=== PATIENT | female | born 1945 | race Caucasian/White ===

== ENCOUNTER 2018-09-04 03:48 | Inpatient (IN) ==
[2018-09-04] MEDS ORDERED: Piperacil/Tazo 3.375 GM Premix 50 ML IV.SIG ONE (03:53)
[2018-09-04] MEDS ORDERED: Vancomycin Inj 1 GM/200 ML PIGGYBACK IV.SIG ONE (03:53)
[2018-09-04] MEDS ORDERED: Sod Chloride 0.9% Inj 1,000 ML IV.SIG ONE ×2 (03:53→05:05)
--- NOTE | 2018-09-04 03:58 | ED ---
HPI General Stated Complaint: Medical Time Seen by Provider: 09/04/18 03:50 History of Present Illness HPI Narrative: 73-year-old female from half-way she has dementia she has a PEG tube she apparently was found to be febrile and minimally responsive she is more awake than she was in the last few hours paramedics arrived and found her D satting 88 on room air she became lethargic unresponsive was intubated in route intelligence officer reports having seen tube feeding substance coming from the vocal cords and in the posterior pharynx. Intubated in route given 2 L of fluid she arrives pressure is 116/90 heart rate is 100 sat is intubated and she is satting at 100% now on BVM patient will have a septic workup x-rays urine analysis be given antibiotics empirically for possible aspiration pneumonia or UTI urosepsis further evaluation and most likely ICU admission she is intubated she was given etomidate 20 and Versed for in route and 2 L of fluid arrives stable intubated altered ROS HPI limited due to the fact that she is intubated and altered Related Data Allergies Allergy/AdvReac Type Severity Reaction Status Date / Time No Known Allergies Allergy Verified 09/04/18 03:52 Review of Systems ROS Unobtainable ROS Unobtainable: unobtainable due to endotracheal tube and unobtainable due to mental condition Discharge Plan Physicians Team ED Provider: Vamshi Rincon Primary Care Provider: UNKNOWN, Status ED Status: With Doctor
[2018-09-04 04:12] LABS: ABG Base Excess -0.7 mmol/L (-2-2); ABG PCO2 30 mmHg (38-42); ABG PO2 295 mmHg (61-120)
--- NOTE | 2018-09-04 04:26 | XR ---
EXAM DATE: 09/04/2018 4:23 AM EST AGE/SEX: 73 years / Female INDICATIONS: Post intubation. CLINICAL DATA: This is the patient's initial encounter. Patient reports that signs and symptoms have been present for 1 day and indicates a pain score of Nonresponsive. MEDICAL/SURGICAL HISTORY: Non-responsive. Non-responsive. COMPARISON: No prior exams available for comparison. FINDINGS: A single AP view of the chest demonstrates an endotracheal tube with the tip 3 cm from the archie. Na sogastric tube courses off the inferior margin of the film. Linear atelectasis is seen within the rig ht lung base. There is elevation of the right hemidiaphragm. Left lung is clear. No effusions. Heart is normal in size. No pneumothorax. CONCLUSION: Elevation of the right hemidiaphragm with right basilar atelectasis. Electronically signed by: Sergey Khan MD 09/04/2018 4:24 AM EST
[2018-09-04 04:35] LABS: Baso # (Auto) 0.1 th/mm3 (0.0-0.2); Baso % (Auto) 0.3 % (0.0-2.0); Hemoglobin 15.8 gm/dL (11.6-15.3); Lymph # (Auto) 0.6 th/mm3 (1.0-4.8); Lymph % (Auto) 3.6 % (9.0-44.0); Mean Corpuscular HGB Conc 33.6 % (32.0-36.0); Mean Corpuscular Hemoglobin 31.2 pg (27.0-34.0); Mean Corpuscular Volume 92.7 fL (80.0-100.0); Mean Platelet Volume 10.4 fL (7.0-11.0); Mono # (Auto) 1.8 th/mm3 (0.0-0.9); Mono % (Auto) 10.4 % (0.0-8.0); Neut # (Auto) 15.2 th/mm3 (1.8-7.7); Neut % (Auto) 85.7 % (16.0-70.0); Platelet Count 165 th/mm3 (150-450); Red Blood Count 5.07 mil/mm3 (4.00-5.30); Red Cell Distribution Width 13.8 % (11.6-17.2); White Blood Count 17.7 th/mm3 (4.0-11.0)
[2018-09-04 04:53] LABS: Albumin 2.6 g/dL (3.4-5.0); Calcium 7.2 mg/dL (8.5-10.1); Carbon Dioxide 24.9 meq/L (21.0-32.0); Magnesium 2.4 mg/dL (1.5-2.5); Total Protein 5.9 g/dL (6.4-8.2); Troponin I 0.07 ng/mL (0.02-0.05)
[2018-09-04] MEDS ORDERED: Calcium Gluconate Inj 1 GM in Dextrose 5% in Water Inj 100 ML IV.SIG ONE ×2 (04:59)
[2018-09-04] MEDS ORDERED: Vancomycin Inj 1,000 MG in Sodium Chlor 0.9% Inj 250 ML IV.SIG ONE (05:00)
[2018-09-04 05:11] LABS: CKMB Percent 0.6 % (0.0-4.0); Creatine Kinase MB 1.3 ng/mL (0.5-3.6)
[2018-09-04 05:38] LABS: ABG Base Excess -2.3 mmol/L (-2-2); ABG PCO2 27 mmHg (38-42); ABG PO2 244 mmHg (61-120)
[2018-09-04 05:49] LABS: Bacteria,Urine Moderate /hpf; Bilirubin,Urine Negative (Negative); Clarity,Urine Hazy (Clear); Color,Urine Yellow (Yellw/Straw); Glucose,Urine (UA) Negative (Negative); Hyaline Casts,Urine 6 /lpf (0-3); Leukocyte Esterase,Urine Small (Negative); Mucus,Urine Many /lpf (Occasional); Nitrite,Urine Positive (Negative); Specific Gravity,Urine 1.027 (1.002-1.035); Squamous Epithelial Cell,Urine <1 /hpf (0-5); Urobilinogen,Urine 4 or Greater mg/dL (Less than 2)
[2018-09-04] MEDS ORDERED: Bisacodyl 10 MG Supp RECTAL PRN (06:26)
[2018-09-04] MEDS ORDERED: Acetaminophen 325 MG Tablet PO PRN (06:26)
--- NOTE | 2018-09-04 06:49 | CT ---
EXAM DATE: 09/04/2018 6:43 AM EST AGE/SEX: 73 years / Female INDICATIONS: Altered mental status. CLINICAL DATA: This is the patient's initial encounter. Patient reports that signs and symptoms have been present for 1 day and indicates a pain score of Nonresponsive. MEDICAL/SURGICAL HISTORY: Non-responsive. Non-responsive. RADIATION DOSE: 61.37 CTDI (mGy) COMPARISON: No prior exams available for comparison. TECHNIQUE: CT of the head without contrast. Using automated exposure control and adjustment of the mA and/or kV according to patient size, radiation dose was kept as low as reasonably achievable to ob tain optimal diagnostic quality images. DICOM format image data is available electronically for revi ew and comparison. FINDINGS: Cerebrum: Atrophy. Periventricular low attenuation change involving both cerebral hemispheres. The v entricles are normal for age. No evidence of midline shift, mass lesion, hemorrhage or acute infarct ion. No extraaxial fluid collections are seen. Posterior Fossa: The cerebellum and brainstem are intact. The 4th ventricle is midline. The cerebe llopontine angle is unremarkable. Extracranial: The visualized portion of the orbits is intact. Skull: The calvaria is intact. No evidence of skull fracture. CONCLUSION: 1. No acute intracranial abnormality. 2. Atrophy and chronic small vessel ischemic change. . Electronically signed by: Sergey Khan MD 09/04/2018 6:48 AM EST
[2018-09-04 08:16] LABS: ABG Base Excess -3.7 mmol/L (-2-2); ABG PCO2 36 mmHg (38-42); ABG PO2 78 mmHG (61-120)
[2018-09-04] MEDS ORDERED: Vancomycin Consult Pharmacy OTHER PRN (08:17)
[2018-09-04] MEDS: Sod Chloride 0.9% Inj 1,000 ML IV.CONT SCH ×2 (08:23→22:32)
[2018-09-04] MEDS: Chlorhexidine 0.12% Oral Kit 15 ML UDC OROPHARYNG SCH ×2 (08:24→22:32)
[2018-09-04] MEDS: Famotidine PF Inj 20 MG/2 ML Vial IV.PUSH SCH ×2 (08:26→22:39)
[2018-09-04] MEDS: Senna/Docusate Sodium 8.6/50 MG Tablet PO SCH ×2 (08:27→22:33)
[2018-09-04] MEDS ORDERED: Famotidine 20 MG Tablet PO SCH (09:00)
[2018-09-04] MEDS ORDERED: Famotidine PF Inj 20 MG/2 ML Vial IV.PUSH SCH (09:00)
--- NOTE | 2018-09-04 09:10 | P.CONCC ---
History of Present Illness Service: ICU Consult date: 09/04/18 Requesting Physician: Vamshi Rincon Reason for Consult: Pneumonia, sepsis, altered mental status Primary Care Provider: Charly Milan MD Chief Complaint: Altered mental status History of Present Illness: This is a 73-year-old female that resides in a [facility] facility at [facility]. The patient's baseline is alert and interactive. The patient was found lethargic, tachycardic with difficulty breathing. EMS was contacted and upon their arrival they noted that patient O2 saturation 86% they also noted tube feeding around the vocal cord inlet, of note patient has an indwelling PEG tube. The patient was intubated in the field , and transferred to [facility]. Upon arrival the patient was noted to be febrile 101.0 and received vancomycin and Zosyn x1 dose the patient was laboratory and imaging studies were obtained noting no acute abnormality CT brain, however the patient was noted to have an elevated lactate level and leukocytosis. 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 Patient also has a history of hypothyroidism and a major depressive disorder history of schizophrenia, hyperlipidemia, and an indwelling PEG tube secondary to chronic dysphagia. Critical care medicine was consulted. Review of Systems unobtainable due to endotracheal tube, unobtainable due to mental condition PMFSH - History History Provided By: Case Checker / EMT - Medical History Medical History: Medical History (Last Updated 09/04/18 @ 04:10 by Destiny Cordon) Cerebral infarction Dysphagia due to old intracerebral hemorrhage Encephalopathy Hemiparesis affecting left side as late effect of stroke Hemiplegia affecting left nondominant side Hyperlipemia Hypothyroidism Muscle weakness (generalized) Schizophrenia TIA (transient ischemic attack) - Tobacco History Second Hand Smoke Exposure: No Smoking Status: Never smoker - Alcohol History How Often Do You Have a Drink Containing Alcohol: Never - Substance Use History Substance History: Unable to Obtain - Travel History Recent Travel in the [place] Within the Last 8 Weeks: No Recent Travel Out of the Country Within the Last 8 Weeks: No - Immunization History Tetanus Immunization: Unable to Assess Medications and Allergies Active Medications: Active Medications Acetaminophen (Tylenol) 650 mg PO Q6H PRN PRN Reason: PAIN 1-10 AND/OR FEVER >101F Al Hydroxide/Mg Hydroxide (Milk Of Magnesia Liq) 30 ml PO Q12H PRN PRN Reason: Mild Constipation Albuterol (Duoneb Neb (Prn)) 1 ampul NEB Q2HR NEB PRN PRN Reason: WHEEZING Aspirin (Aspirin Chew) 81 mg PO DAILY [facility] Bisacodyl (Dulcolax Supp) 10 mg RECTAL DAILY PRN PRN Reason: SEVERE CONSITIPATION Chlorhexidine Gluconate (Peridex 0.12% Oral Kit) 15 ml OROPHARYNG BID@0800, 2000 [facility] Last Admin: 09/04/18 08:24 Dose: 15 ml Chlorhexidine Gluconate (Chlorhexidine 2% Cloth) 3 pack TOPICAL DAILY@0400 PRN PRN Reason: Extra cloth needed Stop: 09/10/18 03:59 Chlorhexidine Gluconate (Chlorhexidine 2% Cloth) 3 pack TOPICAL DAILY@0400 [facility] Stop: 09/10/18 03:59 Famotidine (Pepcid) 20 mg PO BID [facility] Famotidine (Pepcid Pf Inj) 20 mg IV.PUSH Q12HR [facility] Last Admin: 09/04/18 08:26 Dose: 20 mg Sodium Chloride (Ns Inj) 1,000 mls @ 75 mls/hr IV.CONT .[id number] [facility] Last Admin: 09/04/18 08:23 Dose: 75 mls/hr Cefepime HCl 2,000 mg/ Sodium (Chloride) 100 mls @ 200 mls/hr IV.SIG Q12H [facility] Last Admin: 09/04/18 08:27 Dose: 200 mls/hr Lactulose (Lactulose Liq) 30 ml PO DAILY PRN PRN Reason: SEVERE CONSITIPATION Levothyroxine Sodium (Synthroid) 50 mcg PO DAILY@0600 [facility] Miscellaneous Medication () 1 each OROPHARYNG 0000,0400,1200,1600 [facility] Ondansetron HCl (Zofran Inj) 4 mg IV.PUSH Q6H PRN PRN Reason: NAUSEA OR VOMITING Pharmacy Profile Note (Vancomycin Consult Pharmacy) 1 each OTHER UNSCH PRN PRN Reason: Pharmacy to dose Senna/Docusate Sodium (Jeniffer-Colace) 1 tab PO BID [facility] Last Admin: 09/04/18 08:27 Dose: 1 tab Sennosides (Senokot) 17.2 mg PO Q12H PRN PRN Reason: Moderate Constipation Sodium Chloride (Ns Flush) 2 ml IV.FLUSH BID [facility] Last Admin: 09/04/18 08:27 Dose: 2 ml Sodium Chloride (Ns Flush) 2 ml IV.FLUSH PRN PRN PRN Reason: FLUSH AFTER USING IV ACCESS Sterile Water (Free Water) 200 ml G-TUBE Q6HR [facility] Allergies Allergy/AdvReac Type Severity Reaction Status Date / Time No Known Allergies Allergy Verified 09/04/18 03:59 Home Medications Medication Instructions Recorded Confirmed Type acetaminophen 650 mg ND Q6H PRN 09/04/18 09/04/18 History aspirin 81 mg PO DAILY 09/04/18 09/04/18 History atorvastatin 20 mg PO DAILY 09/04/18 09/04/18 History cariprazine [Vraylar] 3 mg PO DAILY 09/04/18 09/04/18 History fluoxetine [Prozac] 20 mg PO DAILY 09/04/18 09/04/18 History hydrocortisone 1 applic TOPICAL BID 09/04/18 09/04/18 History ipratropium-albuterol 3 ml INHALATION Q6-8H PRN 09/04/18 09/04/18 History levothyroxine 25 mcg PO DAILY 09/04/18 09/04/18 History metronidazole [MetroCream] 1 applic TOPICAL BID 09/04/18 09/04/18 History Physical Exam Vital signs: Vital Signs 09/04/18 03:51 09/04/18 04:12 09/04/18 05:07 Temperature 98.0 F Pulse Rate 114 H 98 H 85 Respiratory Rate 16 16 18 Blood Pressure 101/66 130/84 Pulse Oximetry 100 100 98 09/04/18 05:43 09/04/18 06:16 09/04/18 06:48 Temperature 101.1 F H Pulse Rate 90 Respiratory Rate 18 12 16 Blood Pressure 126/81 Pulse Oximetry 99 99 09/04/18 06:53 09/04/18 07:26 Temperature Pulse Rate Respiratory Rate 12 16 Blood Pressure Pulse Oximetry 100 Intake & Output 09/03/18 09/04/18 09/04/18 18:59 06:59 18:59 Intake Total 1050 / 1050 1360 / 1360 Balance 1050 / 1050 1360 / 1360 Weight 66.3 kg Intake: IV 1050 / 1050 1360 / 1360 Calcium Gluconate Inj 1 GM In 110 / 110 D5W Inj 100 ML @ 110 mls/hr IV. SIG ONCE ONE Rx#:[id number] Zosyn 3.375 GM Premix 50 ML @ 50 / 50 100 mls/hr IV.SIG ONCE ONE Rx#: [id number] NS Inj 1,000 ML @ Wide Open IV. 1000 / 1000 1000 / 1000 SIG BOLUS ONE Rx#:[id number] Vancomycin Inj 1,000 MG In NS 250 / 250 Inj 250 ML @ 250 mls/hr IV.SIG ONCE ONE Rx#:[id number] Other: Weight On Admission 66.3 kg - Constitutional no acute distress, average body habitus, chronically ill appearing - Routine HEENT Exam Head: Present: normocephalic Eye: Present: EOMI, PERRL ENT: Present: mucous membranes moist (orotracheally intubated) - Routine Neck Exam Present: supple - Routine Respiratory Exam Present: patient mechanically ventilated, distant breath sounds (bases) - Routine Cardiovascular Exam Present: RRR, S1, S2 - Routine Abdominal Exam Present: soft, normoactive bowel sounds (PEG insitu) - Routine Extremities Exam Present: pulses intact - Routine Skin Exam Present: intact - Routine Neurological Exam Present: altered mental status - Detailed Neurological Exam: Coma Scale Eye Opening: Spontaneous Verbal Response: None Motor Response: None Ino Coma Scale Total: 6 - Urinary Catheter Management Indwelling Urethral Catheter Cath placed during this visit: yes Reason for continuing: Hourly intake/output Insertion date: 09/04/18 Insertion time: 05:08 Assessment and Plan - Problem List (1) Altered mental status Code(s): R41.82 - Altered mental status, unspecified Status: Acute (2) Hyperlipidemia Code(s): E78.5 - Hyperlipidemia, unspecified Status: Acute (3) Hemiplegia affecting left nondominant side Code(s): G81.94 - Hemiplegia, unspecified affecting left nondominant side Status: Acute (4) Hemiparesis affecting nondominant side as late effect of cerebrovascular accident Code(s): I69.359 - Hemiplegia and hemiparesis following cerebral infarction affecting unspecified side Status: Acute (5) Hypothyroidism Code(s): E03.9 - Hypothyroidism, unspecified Status: Acute - Assessment and Plan Plan: This is a 73-year-old female with a history of CVA, with left-sided hemiparesis and hemiplegia now presenting with aspiration with required intubation for airway protection. Currently septic with most likely metabolic encephalopathy. The patient is critically ill. The patient has a full CODE STATUS. 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 Left hemiparesis Left hemiplegia History of schizophrenia Neuro checks per ICU protocol Avoid sedative type agents for clear assessment of neuro status Tylenol 650 mg every 6 hours as needed, for pain and/or temperature greater than 100.5 Currently not on any sedatives to maintain vent ventilator synchrony Currently GCS of 6 Respiratory: Probable aspiration Acute hypoxemic respiratory failure Maintain O2 saturation greater than 92% Ventilator bundle Wean FiO2 currently at 40%, tidal volume 450 rate of 16 PEEP of 5 ABG 7.37/30 5/70 8/20/-3.7 Follow-up chest x-ray in am Bronchodilator every 4 hours as needed Cardiovascular: Hyperlipidemia Elevated troponin Maintain map greater than 65, she may require vasopressor support Monitor serial troponins most likely secondary to demand ischemia Continue aspirin 81 mg daily Renal: Davis catheter -- Strict I/Os FEN/GI: Hypernatremia Maintain n.p.o. status Zofran for nausea Famotidine for GI prophylaxis Maintain OGT tube Begin free water flushes 200 cc/now Continue gentle IV hydration normal saline at 75 cc/hr PEG tube in situ clamp Heme/ID: Sepsis Leukocytosis Healthcare associated pneumonia versus aspiration Initial lactate 2.3, follow serial lactate levels Initiate Zosyn and vancomycin Blood , urine cultures pending Obtain influenza, pneumococcal, Legionella antigens Monitor CBC Endocrine: Hypothyroidism Continue levothyroxine home medication 50 mcgs/day Obtain TSH level -- SSI Prophylaxis: GI Prophylaxis Famotidine DVT Prophylaxis -- SCDs Heparin 5000 subcu twice daily Lines: Of IVs providing adequate access. Central line if indicated Dispo: My billing statement This patient remains critically ill with one or more organ systems which are or may become a threat to life. I have spent in excess of 57 minutes discontinuously in the care and management of this patient. This time is exclusive of procedures, and includes, but is not limited to, evaluation of the patient, review of the medical record, discussions with family, consultants, nursing staff, or respiratory therapy, and documentation in the medical record. Code Status: Full Discussed Condition With: With [employer] at bedside
[2018-09-04] MEDS: Oral Hygiene Kit OROPHARYNG SCH ×2 (13:48→17:29)
--- NOTE | 2018-09-04 14:41 | ECHRPT ---
Indication: HYPERTENSIVE HEART DISEASE CONCLUSIONS Normal left ventricular size. Wall thickness is normal. The left ventricular systolic function is normal with an estimated ejection fraction of 60%. Mitral annular calcification is present. The estimated pulmonary arterial pressure is 16 mmHg. A possible left sided pleural effusion is present. BP: / HR: Rhythm: Sinus MEASUREMENTS (Male / Female) Normal Values Technical Quality:Technically difficult study 2D ECHO LV Diastolic Diameter PLAX 3.7 cm 4.2 - 5.9 / 3.9 - 5.3 cm LV Systolic Diameter PLAX 2.9 cm IVS Diastolic Thickness 1.2 cm 0.6 - 1.0 / 0.6 - 0.9 cm LVPW Diastolic Thickness 1.1 cm 0.6 - 1.0 / 0.6 - 0.9 cm LV Relative Wall Thickness 0.6 RV Internal Dim ED PLAX 2.3 cm LVOT Diameter 1.8 cm Aortic Root Diameter 2.6 cm LA Systolic Diameter LX 3.0 cm 3.0 - 4.0 / 2.7 - 3.8 cm LV Ejection Fraction MOD 4C 48.6 % LV Ejection Fraction 4C AL 50.4 % M-MODE AV Cusp Separation MM 1.1 cm DOPPLER AV Peak Velocity 138.0 cm/s AV Peak Gradient 7.6 mmHg LVOT Peak Velocity 81.4 cm/s LVOT Peak Gradient 2.7 mmHg AV Area Cont Eq pk 1.5 cm Mitral E Point Velocity 70.6 cm/s Mitral A Point Velocity 102.0 cm/s Mitral E to A Ratio 0.7 TR Peak Velocity 114.0 cm/s TR Peak Gradient 5.2 mmHg Right Atrial Pressure 10.0 mmHg Pulmonary Artery Systolic Pressu 15.2 mmHg Right Ventricular Systolic Press 15.2 mmHg PV Peak Velocity 88.4 cm/s PV Peak Gradient 3.1 mmHg FINDINGS LEFT VENTRICLE Normal left ventricular size. Wall thickness is normal. The left ventricular systolic function is normal with an estimated ejection fraction of 60%. RIGHT VENTRICLE The right ventricle was not well visualized. LEFT ATRIUM The left atrium was not well visualized. RIGHT ATRIUM The right atrium is not well visualized. ATRIAL SEPTUM The interatrial septum not well visualized. AORTA The aortic root and proximal ascending aorta are normal in size on limited imaging. MITRAL VALVE Mitral annular calcification is present. AORTIC VALVE Trileaflet aortic valve. No aortic valve stenosis or regurgitation. TRICUSPID VALVE The estimated pulmonary arterial pressure is 16 mmHg. PULMONARY VALVE No pulmonary valve regurgitation or stenosis. VESSELS The inferior vena cava is normal in size. PERICARDIUM A possible left sided pleural effusion is present. Jeremy Vazquez MD, FACC (Electronically Signed) Final Date:04 September 2018 14:40
--- NOTE | 2018-09-04 17:03 | ECG ---
Date Performed: 09/04/2018 Time Performed: 04:41:11 PTAGE: 73 years EKG: Sinus rhythm LEFT ANTERIOR FASCICULAR BLOCK ABNORMAL R WAVE PROGRESSION ABNORMAL ECG NO PREVIOUS TRACING DOCTOR: Jeremy Vazquez Interpretating Date/Time 09/04/2018 17:02:18
[2018-09-04] MEDS: Miconazole 2% Cream 15 GM Tube TOPICAL SCH ×2 (17:29→22:33)
[2018-09-05] MEDS ORDERED: Chlorhexidine Gluconate 2% 1 Pack (2 Cloths) TOPICAL PRN (04:00)
[2018-09-05 04:10] LABS: Baso # (Auto) 0.1 th/mm3 (0.0-0.2); Baso % (Auto) 0.3 % (0.0-2.0); Eos % (Auto) 0.1 % (0.0-4.0); Hematocrit 40.8 % (35.0-46.0); Hemoglobin 13.2 gm/dL (11.6-15.3); Lymph # (Auto) 1.5 th/mm3 (1.0-4.8); Lymph % (Auto) 9.6 % (9.0-44.0); Mean Corpuscular HGB Conc 32.4 % (32.0-36.0); Mean Corpuscular Volume 92.6 fL (80.0-100.0); Mean Platelet Volume 9.6 fL (7.0-11.0); Mono % (Auto) 6.5 % (0.0-8.0); Neut # (Auto) 13.4 th/mm3 (1.8-7.7); Neut % (Auto) 83.5 % (16.0-70.0); Platelet Count 122 th/mm3 (150-450); Red Blood Count 4.41 mil/mm3 (4.00-5.30); Red Cell Distribution Width 14.1 % (11.6-17.2); White Blood Count 16.1 th/mm3 (4.0-11.0)
[2018-09-05] MEDS: Oral Hygiene Kit OROPHARYNG SCH ×4 (04:10→17:03)
[2018-09-05] MEDS: Chlorhexidine Gluconate 2% 1 Pack (2 Cloths) TOPICAL SCH (04:10)
[2018-09-05 04:53] LABS: Alanine Aminotransferase 11 U/L (10-53); Albumin 2.2 g/dL (3.4-5.0); Alkaline Phosphatase 50 U/L (45-117); Anion Gap 4 meq/L (5-15); Aspartate Aminotransferase 14 U/L (15-37); Blood Urea Nitrogen 29 mg/dL (7-18); Calcium 7.6 mg/dL (8.5-10.1); Carbon Dioxide 24.8 meq/L (21.0-32.0); Chloride 121 meq/L (98-107); Glomerular Filtration Rate Greater Than 89 mL/min (>89); Glucose,Random 94 mg/dL (74-106); Magnesium 2.3 mg/dL (1.5-2.5); Phosphorus 2.1 mg/dL (2.5-4.9); Potassium 3.6 meq/L (3.5-5.1); Sodium 150 meq/L (136-145); Total Protein 5.5 g/dL (6.4-8.2)
[2018-09-05] MEDS: Levothyroxine 50 MCG Tablet PO SCH (06:07)
[2018-09-05] MEDS: Famotidine PF Inj 20 MG/2 ML Vial IV.PUSH SCH ×2 (09:00→20:07)
[2018-09-05] MEDS: Senna/Docusate Sodium 8.6/50 MG Tablet PO SCH ×2 (09:00→20:07)
[2018-09-05] MEDS: Miconazole 2% Cream 15 GM Tube TOPICAL SCH ×2 (09:00→20:06)
[2018-09-05] MEDS: Chlorhexidine 0.12% Oral Kit 15 ML UDC OROPHARYNG SCH ×2 (09:01→20:05)
[2018-09-05] MEDS: Sod Chloride 0.9% Inj 1,000 ML IV.CONT SCH ×2 (11:31→22:36)
[2018-09-05 13:34] LABS: ABG Base Excess -2.6 mmol/L (-2-2); ABG PCO2 33 mmHg (38-42); ABG PO2 87 mmHG (61-120)
--- NOTE | 2018-09-05 14:14 | P.CONGI ---
History of Present Illness Consult date: 09/05/18 Consult reason: PEG tube patency and placement Chief complaint: Sepsis, AMS, Pneumonia History of Present Illness: This patient is a 73-year-old female with a past medical history significant for cerebral infarction-2 weeks ago, dysphagia due to intracerebral hemorrhage, encephalopathy, hemiparesis with hemiplegia, hyperlipidemia, hypothyroidism and schizophrenia. Patient was sent to [facility] emergency room from a shelter facility after being found lethargic and tachycardic. Patient was found to have low oxygen saturations at that time. Patient was intubated by EMS and tube feeding was noted in the posterior pharynx. Of note, patient has a PEG feeding tube-placed [address] [facility]. Upon arrival to [facility], patient was noted to be febrile and was started on IV antibiotics. Our service has been consulted to evaluate for PEG tube placement and patency. PEG tube flushed with 20 mL's of free water, patent without resistance. Patient is currently intubated and mechanically ventilated, FiO2 35%. Respiratory therapy, planning to extubate tomorrow. Review of Systems unobtainable due to endotracheal tube, other PMFSH - History History Provided By: Offset Pressman / EMT - Medical History Medical History: Medical History (Last Updated 09/04/18 @ 04:10 by Destiny Cordon) Cerebral infarction Dysphagia due to old intracerebral hemorrhage Encephalopathy Hemiparesis affecting left side as late effect of stroke Hemiplegia affecting left nondominant side Hyperlipemia Hypothyroidism Muscle weakness (generalized) Schizophrenia TIA (transient ischemic attack) - Tobacco History Second Hand Smoke Exposure: No Smoking Status: Never smoker - Alcohol History How Often Do You Have a Drink Containing Alcohol: Never - Substance Use History Substance History: Unable to Obtain - Travel History Recent Travel in the [place] Within the Last 8 Weeks: No Recent Travel Out of the Country Within the Last 8 Weeks: No - Immunization History Tetanus Immunization: Unable to Assess Hx Influenza Vaccine This Season: No Medications and Allergies Active Medications: Active Medications Acetaminophen (Tylenol) 650 mg PO Q6H PRN PRN Reason: PAIN 1-10 AND/OR FEVER >101F Al Hydroxide/Mg Hydroxide (Milk Of Magnesia Liq) 30 ml PO Q12H PRN PRN Reason: Mild Constipation Albuterol (Duoneb Neb (Prn)) 1 ampul NEB Q2HR NEB PRN PRN Reason: WHEEZING Last Admin: 09/05/18 06:17 Dose: 1 ampul Aspirin (Aspirin Chew) 81 mg PO DAILY [facility] Last Admin: 09/05/18 09:00 Dose: 81 mg Bisacodyl (Dulcolax Supp) 10 mg RECTAL DAILY PRN PRN Reason: SEVERE CONSITIPATION Chlorhexidine Gluconate (Peridex 0.12% Oral Kit) 15 ml OROPHARYNG BID@0800, 2000 [facility] Last Admin: 09/05/18 09:01 Dose: 15 ml Chlorhexidine Gluconate (Chlorhexidine 2% Cloth) 3 pack TOPICAL DAILY@0400 PRN PRN Reason: Extra cloth needed Stop: 09/10/18 03:59 Chlorhexidine Gluconate (Chlorhexidine 2% Cloth) 3 pack TOPICAL DAILY@0400 [facility] Stop: 09/10/18 03:59 Last Admin: 09/05/18 04:10 Dose: 3 pack Famotidine (Pepcid) 20 mg PO BID [facility] Famotidine (Pepcid Pf Inj) 20 mg IV.PUSH Q12HR [facility] Last Admin: 09/05/18 09:00 Dose: 20 mg Sodium Chloride (Ns Inj) 1,000 mls @ 75 mls/hr IV.CONT .[id number] [facility] Last Admin: 09/05/18 11:31 Dose: 75 mls/hr Cefepime HCl 2,000 mg/ Sodium (Chloride) 100 mls @ 200 mls/hr IV.SIG Q12H [facility] Last Admin: 09/05/18 09:01 Dose: 200 mls/hr Vancomycin HCl 1,250 mg/ (Sodium Chloride) 262.5 mls @ 250 mls/hr IV.SIG Q18H [facility] Last Infusion: 09/05/18 01:57 Dose: Infused Lactulose (Lactulose Liq) 30 ml PO DAILY PRN PRN Reason: SEVERE CONSITIPATION Levothyroxine Sodium (Synthroid) 50 mcg PO DAILY@0600 [facility] Last Admin: 09/05/18 06:07 Dose: 50 mcg Miconazole Nitrate (Micatin 2% Cream) 1 applicatio TOPICAL BID [facility] Last Admin: 09/05/18 09:00 Dose: 1 applicatio Miscellaneous Information ([facility] Ordered Lab Info) 0 each OTHER ONCE ONE Stop: 09/06/18 11:46 Miscellaneous Medication () 1 each OROPHARYNG 0000,0400,1200,1600 [facility] Last Admin: 09/05/18 11:31 Dose: 1 each Nystatin (Mycostatin Cream) 1 applicatio TOPICAL BID [facility] Last Admin: 09/05/18 09:00 Dose: 1 applicatio Ondansetron HCl (Zofran Inj) 4 mg IV.PUSH Q6H PRN PRN Reason: NAUSEA OR VOMITING Pharmacy Profile Note (Vancomycin Consult Pharmacy) 1 each OTHER UNSCH PRN PRN Reason: Pharmacy to dose Senna/Docusate Sodium (Jeniffer-Colace) 1 tab PO BID [facility] Last Admin: 09/05/18 09:00 Dose: 1 tab Sennosides (Senokot) 17.2 mg PO Q12H PRN PRN Reason: Moderate Constipation Sodium Chloride (Ns Flush) 2 ml IV.FLUSH BID [facility] Last Admin: 09/05/18 09:00 Dose: 2 ml Sodium Chloride (Ns Flush) 2 ml IV.FLUSH PRN PRN PRN Reason: FLUSH AFTER USING IV ACCESS Sterile Water (Free Water) 200 ml G-TUBE Q6HR [facility] Last Admin: 09/05/18 11:31 Dose: 200 ml Allergies Allergy/AdvReac Type Severity Reaction Status Date / Time No Known Allergies Allergy Verified 09/04/18 03:59 Home Medications Medication Instructions Recorded Confirmed Type acetaminophen 650 mg SC Q6H PRN 09/04/18 09/04/18 History aspirin 81 mg PO DAILY 09/04/18 09/04/18 History atorvastatin 20 mg PO DAILY 09/04/18 09/04/18 History cariprazine [Vraylar] 3 mg PO DAILY 09/04/18 09/04/18 History fluoxetine [Prozac] 20 mg PO DAILY 09/04/18 09/04/18 History hydrocortisone 1 applic TOPICAL BID 09/04/18 09/04/18 History ipratropium-albuterol 3 ml INHALATION Q6-8H PRN 09/04/18 09/04/18 History levothyroxine 25 mcg PO DAILY 09/04/18 09/04/18 History metronidazole [MetroCream] 1 applic TOPICAL BID 09/04/18 09/04/18 History Exam Vital signs: Vital Signs 09/04/18 14:00 09/04/18 15:00 09/04/18 15:45 Temperature 100.4 F H 100.4 F H Pulse Rate 69 77 Respiratory Rate 18 19 15 Blood Pressure 129/62 145/71 H Pulse Oximetry 99 99 99 09/04/18 16:00 09/04/18 17:00 09/04/18 18:00 Temperature 100.6 F H 100.2 F H 99.9 F H Pulse Rate 64 62 56 L Respiratory Rate 18 15 16 Blood Pressure 129/60 137/65 131/60 Pulse Oximetry 99 99 100 09/04/18 19:00 09/04/18 19:40 09/04/18 20:00 Temperature 99.7 F H 99.7 F H Pulse Rate 68 71 Respiratory Rate 16 15 15 Blood Pressure 127/65 128/71 Pulse Oximetry 100 99 99 09/04/18 21:00 09/04/18 22:00 09/04/18 22:25 Temperature 99.7 F H 99.5 F Pulse Rate 66 68 Respiratory Rate 15 15 15 Blood Pressure 130/63 124/63 Pulse Oximetry 100 99 100 09/04/18 22:30 09/04/18 23:00 09/05/18 00:00 Temperature 99.7 F H 99.7 F H Pulse Rate 70 64 Respiratory Rate 16 16 16 Blood Pressure 111/55 L 123/62 Pulse Oximetry 100 99 100 09/05/18 01:00 09/05/18 01:19 09/05/18 02:00 Temperature 99.5 F 99.5 F Pulse Rate 61 64 Respiratory Rate 16 16 16 Blood Pressure 124/60 134/67 Pulse Oximetry 100 100 99 09/05/18 03:00 09/05/18 04:00 09/05/18 04:30 Temperature 99.3 F 99.1 F Pulse Rate 62 59 L Respiratory Rate 16 16 16 Blood Pressure 131/64 128/59 L Pulse Oximetry 100 98 99 09/05/18 05:00 09/05/18 06:00 09/05/18 06:17 Temperature 99.0 F 99.0 F Pulse Rate 53 L 51 L 68 Respiratory Rate 16 16 17 Blood Pressure 123/63 121/61 Pulse Oximetry 99 100 09/05/18 07:00 09/05/18 08:00 09/05/18 08:03 Temperature 98.8 F 98.8 F Pulse Rate 60 54 L Respiratory Rate 16 16 12 Blood Pressure 119/60 133/63 Pulse Oximetry 100 100 100 09/05/18 09:00 09/05/18 10:00 09/05/18 10:01 Temperature 98.8 F 98.6 F 98.6 F Pulse Rate 53 L 52 L 52 L Respiratory Rate 14 14 14 Blood Pressure 143/67 H 135/62 Pulse Oximetry 100 100 100 09/05/18 11:00 09/05/18 11:37 09/05/18 12:00 Temperature 99.0 F 99.0 F Pulse Rate 53 L 51 L Respiratory Rate 15 16 16 Blood Pressure 123/60 132/63 Pulse Oximetry 100 100 100 09/05/18 13:00 Temperature 99.0 F Pulse Rate 53 L Respiratory Rate 17 Blood Pressure 135/62 Pulse Oximetry 99 Intake & Output 09/04/18 09/05/18 09/05/18 18:59 06:59 18:59 Intake Total 1860 / 1860 1362.5 / 1362.5 1400 / 1400 Output Total 425 / 425 300 / 300 Balance 1435 / 1435 1362.5 / 1362.5 1100 / 1100 Weight 68.6 kg Intake: IV 1460 / 1460 1362.5 / 1362.5 1000 / 1000 NS Inj 1,000 ML @ 75 mls/hr IV. 1000 / 1000 1000 / 1000 CONT .[id number] [facility] Rx#:[id number] Calcium Gluconate Inj 1 GM In 110 / 110 D5W Inj 100 ML @ 110 mls/hr IV. SIG ONCE ONE Rx#:[id number] Maxipime Inj 2,000 MG In NS Inj 100 / 100 100 / 100 100 ML @ 200 mls/hr IV.SIG Q12H [facility] Rx#:[id number] NS Inj 1,000 ML @ Wide Open IV. 1000 / 1000 SIG BOLUS ONE Rx#:[id number] Vancomycin Inj 1,000 MG In NS 250 / 250 Inj 250 ML @ 250 mls/hr IV.SIG ONCE ONE Rx#:[id number] Vancomycin Inj 1,250 MG In NS 262.5 / 262.5 Inj 250 ML @ 250 mls/hr IV.SIG Q18H [facility] Rx#:[id number] Water Bolus Amount 400 / 400 400 / 400 Output: Urine Amount (Catheter) 425 / 425 300 / 300 Indwelling Urethral Catheter 425 / 425 300 / 300 Other: # Bowel Movements 0 0 - Constitutional no acute distress, chronically ill appearing - Routine HEENT Exam Head: Present: normocephalic - Routine Respiratory Exam Present: patient mechanically ventilated. Absent: respiratory distress - Routine Cardiovascular Exam Present: RRR - Routine Abdominal Exam Present: soft, normoactive bowel sounds. Absent: tenderness, distended, guarding, firm Comments: PEG tube noted without signs of infection. No redness or drainage around site, no tenderness or swelling - Routine Skin Exam Present: dry, warm - Routine Neurological Exam Eyes open Unable to follow movement Results - Labs CBC & Chem 7: 09/05/18 03:59 09/05/18 03:59 Labs: Laboratory Results - last 24 hr 09/04/18 09/05/18 09/05/18 18:39 00:19 03:59 WBC 16.1 H RBC 4.41 Hgb 13.2 D Hct 40.8 MCV 92.6 MCH 30.0 MCHC 32.4 RDW 14.1 Plt Count 122 L MPV 9.6 Neut % (Auto) 83.5 H Lymph % (Auto) 9.6 [place] % (Auto) 6.5 Eos % (Auto) 0.1 Baso % (Auto) 0.3 Neut # (Auto) 13.4 H Lymph # (Auto) 1.5 [place] # (Auto) 1.0 H Eos # (Auto) 0.0 Baso # (Auto) 0.1 WBC Differential . Differential Comment Auto diff final Puncture Site Patient Temperature O2 Saturation ABG pH ABG pCO2 ABG pO2 ABG HCO3 ABG O2 Content ABG Base Excess ABG Methemoglobin Reed Test Hemoglobin Carboxyhemoglobin O2 Delivery Device Vent Setting Inspired O2 Critical Value Sodium Potassium Chloride Carbon Dioxide Anion Gap BUN Creatinine Estimated GFR POC Glucose 99 79 Random Glucose Lactic Acid Calcium Phosphorus Magnesium Total Bilirubin AST ALT Alkaline Phosphatase Total Protein Albumin 09/05/18 09/05/18 09/05/18 03:59 03:59 09:10 WBC RBC Hgb Hct MCV MCH MCHC RDW Plt Count MPV Neut % (Auto) Lymph % (Auto) [place] % (Auto) Eos % (Auto) Baso % (Auto) Neut # (Auto) Lymph # (Auto) [place] # (Auto) Eos # (Auto) Baso # (Auto) WBC Differential Differential Comment Puncture Site Patient Temperature O2 Saturation ABG pH ABG pCO2 ABG pO2 ABG HCO3 ABG O2 Content ABG Base Excess ABG Methemoglobin Reed Test Hemoglobin Carboxyhemoglobin O2 Delivery Device Vent Setting Inspired O2 Critical Value Sodium 150 H Potassium 3.6 Chloride 121 H Carbon Dioxide 24.8 Anion Gap 4 L BUN 29 H Creatinine 0.52 Estimated GFR Greater than 89 POC Glucose 111 H Random Glucose 94 Lactic Acid 1.0 Calcium 7.6 L Phosphorus 2.1 L Magnesium 2.3 Total Bilirubin 0.6 AST 14 L ALT 11 Alkaline Phosphatase 50 Total Protein 5.5 L Albumin 2.2 L 09/05/18 13:20 WBC RBC Hgb Hct MCV MCH MCHC RDW Plt Count MPV Neut % (Auto) Lymph % (Auto) [place] % (Auto) Eos % (Auto) Baso % (Auto) Neut # (Auto) Lymph # (Auto) [place] # (Auto) Eos # (Auto) Baso # (Auto) WBC Differential Differential Comment Puncture Site Right radial Patient Temperature 98.6 O2 Saturation 95 ABG pH 7.42 ABG pCO2 33 L ABG pO2 87 ABG HCO3 21 L ABG O2 Content 16.6 ABG Base Excess -2.6 L ABG Methemoglobin 1.4 Reed Test Present Hemoglobin 12.4 Carboxyhemoglobin 0.9 O2 Delivery Device Ventilator Vent Setting Cpap/5ps/5peep Inspired O2 35 Critical Value No Sodium Potassium Chloride Carbon Dioxide Anion Gap BUN Creatinine Estimated GFR POC Glucose Random Glucose Lactic Acid Calcium Phosphorus Magnesium Total Bilirubin AST ALT Alkaline Phosphatase Total Protein Albumin Assessment and Plan (1) PEG (percutaneous endoscopic gastrostomy) status Status: Acute Code(s): Z93.1 - Gastrostomy status - Plan This patient is a 73-year-old female with a past medical history significant for cerebral infarction-2 weeks ago, dysphagia due to intracerebral hemorrhage, encephalopathy, hemiparesis with hemiplegia, hyperlipidemia, hypothyroidism and schizophrenia. Patient was sent to [facility] emergency room from a shelter facility after being found lethargic and tachycardic. Patient was found to have low oxygen saturations at that time. Patient was intubated by EMS and tube feeding was noted in the posterior pharynx. Of note, patient has a PEG feeding tube-placed [address] [facility] Upon arrival to [facility], patient was noted to be febrile and was started on IV antibiotics. Our service has been consulted to evaluate for PEG tube placement and patency. PEG tube flushed with 20 mL's of free water, patent without resistance. Patient is currently intubated and mechanically ventilated, FiO2 35%. Respiratory therapy, planning to extubate tomorrow. Aspiration versus PEG tube displacement PEG tube placement and patency -Patient 2 weeks post CVA. History of dysphagia due to cerebral hemorrhage. -PEG tube placed at [facility] post CVA. -suctioned by EMS, tube feeding noted in posterior pharynx -09/04/2018 chest x-ray:A single AP view of the chest demonstrates an endotracheal tube with the tip 3 cm from the archie. Nasogastric tube courses off the inferior margin of the film. Linear atelectasis is seen within the right lung base. There is elevation of the right hemidiaphragm. Left lung is clear. No effusions. Heart is normal in size. No pneumothorax. -WBC 16.1 hemoglobin 13.2 hematocrit 40.8 platelet count 122 Plan -Orogastric tube clamped -N.p.o. -KUB with Gastrografin to assess for placement -If KUB negative please resume PEG tube as per dietary recommendation -Aspiration precautions -Continue IV antibiotics -Supportive care -Further recommendations to follow This patient has been seen by myself and Dr. Velasco and this note is written on his behalf - Attending Attestation chanel
[2018-09-05] MEDS ORDERED: Diatrizoate Meglum/Diatrizoate Sod Liq 120 ML Bottle (for RAD diag) G-TUBE ONE (14:30)
--- NOTE | 2018-09-05 15:09 | P.PNCC ---
Subjective Subjective Remarks/Hospital Course: 09/05: Afebrile. Patient now more alert and responsive no sedation given. Movement of right upper and lower extremity. Following commands. Patient currently on CPAP trials. Noted persistent leukocytosis slightly decreased noted gram-negative rods and urine culture Levaquin added to medication regimen. GI consulted for G-tube evaluation plan for resumption of tube feeds upon completion. Objective Vital Signs / I&O: Vital Signs 09/04/18 15:00 09/04/18 15:45 09/04/18 16:00 Temperature 100.4 F H 100.6 F H Pulse Rate 77 64 Respiratory Rate 19 15 18 Blood Pressure 145/71 H 129/60 Pulse Oximetry 99 99 99 09/04/18 17:00 09/04/18 18:00 09/04/18 19:00 Temperature 100.2 F H 99.9 F H 99.7 F H Pulse Rate 62 56 L 68 Respiratory Rate 15 16 16 Blood Pressure 137/65 131/60 127/65 Pulse Oximetry 99 100 100 09/04/18 19:40 09/04/18 20:00 09/04/18 21:00 Temperature 99.7 F H 99.7 F H Pulse Rate 71 66 Respiratory Rate 15 15 15 Blood Pressure 128/71 130/63 Pulse Oximetry 99 99 100 09/04/18 22:00 09/04/18 22:25 09/04/18 22:30 Temperature 99.5 F Pulse Rate 68 Respiratory Rate 15 15 16 Blood Pressure 124/63 Pulse Oximetry 99 100 100 09/04/18 23:00 09/05/18 00:00 09/05/18 01:00 Temperature 99.7 F H 99.7 F H 99.5 F Pulse Rate 70 64 61 Respiratory Rate 16 16 16 Blood Pressure 111/55 L 123/62 124/60 Pulse Oximetry 99 100 100 09/05/18 01:19 09/05/18 02:00 09/05/18 03:00 Temperature 99.5 F 99.3 F Pulse Rate 64 62 Respiratory Rate 16 16 16 Blood Pressure 134/67 131/64 Pulse Oximetry 100 99 100 09/05/18 04:00 09/05/18 04:30 09/05/18 05:00 Temperature 99.1 F 99.0 F Pulse Rate 59 L 53 L Respiratory Rate 16 16 16 Blood Pressure 128/59 L 123/63 Pulse Oximetry 98 99 99 09/05/18 06:00 09/05/18 06:17 09/05/18 07:00 Temperature 99.0 F 98.8 F Pulse Rate 51 L 68 60 Respiratory Rate 16 17 16 Blood Pressure 121/61 119/60 Pulse Oximetry 100 100 09/05/18 08:00 09/05/18 08:03 09/05/18 09:00 Temperature 98.8 F 98.8 F Pulse Rate 54 L 53 L Respiratory Rate 16 12 14 Blood Pressure 133/63 143/67 H Pulse Oximetry 100 100 100 09/05/18 10:00 09/05/18 10:01 09/05/18 11:00 Temperature 98.6 F 98.6 F 99.0 F Pulse Rate 52 L 52 L 53 L Respiratory Rate 14 14 15 Blood Pressure 135/62 123/60 Pulse Oximetry 100 100 100 09/05/18 11:37 09/05/18 12:00 09/05/18 13:00 Temperature 99.0 F 99.0 F Pulse Rate 51 L 53 L Respiratory Rate 16 16 17 Blood Pressure 132/63 135/62 Pulse Oximetry 100 100 99 Intake & Output 09/04/18 09/05/18 09/05/18 18:59 06:59 18:59 Intake Total 1860 / 1860 1362.5 / 1362.5 1400 / 1400 Output Total 425 / 425 300 / 300 Balance 1435 / 1435 1362.5 / 1362.5 1100 / 1100 Weight 68.6 kg Intake: IV 1460 / 1460 1362.5 / 1362.5 1000 / 1000 NS Inj 1,000 ML @ 75 mls/hr IV. 1000 / 1000 1000 / 1000 CONT .[id number] [facility] Rx#:[id number] Calcium Gluconate Inj 1 GM In 110 / 110 D5W Inj 100 ML @ 110 mls/hr IV. SIG ONCE ONE Rx#:[id number] Maxipime Inj 2,000 MG In NS Inj 100 / 100 100 / 100 100 ML @ 200 mls/hr IV.SIG Q12H [facility] Rx#:[id number] NS Inj 1,000 ML @ Wide Open IV. 1000 / 1000 SIG BOLUS ONE Rx#:[id number] Vancomycin Inj 1,000 MG In NS 250 / 250 Inj 250 ML @ 250 mls/hr IV.SIG ONCE ONE Rx#:[id number] Vancomycin Inj 1,250 MG In NS 262.5 / 262.5 Inj 250 ML @ 250 mls/hr IV.SIG Q18H [facility] Rx#:[id number] Water Bolus Amount 400 / 400 400 / 400 Output: Urine Amount (Catheter) 425 / 425 300 / 300 Indwelling Urethral Catheter 425 / 425 300 / 300 Other: # Bowel Movements 0 0 Result Diagrams: 09/05/18 03:59 12 03:59 Other Results: Laboratory Results WBC 16.1 th/mm3 (4.0-11.0) H 09/05/18 03:59 RBC 4.41 mil/mm3 (4.00-5.30) 09/05/18 03:59 Hgb 13.2 gm/dL (11.6-15.3) D 09/05/18 03:59 Hct 40.8 % (35.0-46.0) 09/05/18 03:59 MCV 92.6 fL (80.0-100.0) 09/05/18 03:59 MCH 30.0 pg (27.0-34.0) 09/05/18 03:59 MCHC 32.4 % (32.0-36.0) 09/05/18 03:59 RDW 14.1 % (11.6-17.2) 09/05/18 03:59 Plt Count 122 th/mm3 (150-450) L 09/05/18 03:59 MPV 9.6 fL (7.0-11.0) 09/05/18 03:59 Neut % (Auto) 83.5 % (16.0-70.0) H 09/05/18 03:59 Lymph % (Auto) 9.6 % (9.0-44.0) 09/05/18 03:59 Preston % (Auto) 6.5 % (0.0-8.0) 09/05/18 03:59 Eos % (Auto) 0.1 % (0.0-4.0) 09/05/18 03:59 Baso % (Auto) 0.3 % (0.0-2.0) 09/05/18 03:59 Neut # (Auto) 13.4 th/mm3 (1.8-7.7) H 09/05/18 03:59 Lymph # (Auto) 1.5 th/mm3 (1.0-4.8) 09/05/18 03:59 Preston # (Auto) 1.0 th/mm3 (0.0-0.9) H 09/05/18 03:59 Eos # (Auto) 0.0 th/mm3 (0.0-0.4) 09/05/18 03:59 Baso # (Auto) 0.1 th/mm3 (0.0-0.2) 09/05/18 03:59 WBC Differential . 09/05/18 03:59 Differential Comment Auto diff final 09/05/18 03:59 Puncture Site Right radial 09/05/18 13:20 Patient Temperature 98.6 09/05/18 13:20 O2 Saturation 95 % (90-100) 09/05/18 13:20 ABG pH 7.42 (7.380-7.420) 09/05/18 13:20 ABG pCO2 33 mmHg (38-42) L 09/05/18 13:20 ABG pO2 87 mmHG (61-120) 09/05/18 13:20 ABG HCO3 21 mmol/L (22-26) L 09/05/18 13:20 ABG O2 Content 16.6 Vol % (12.0-20.0) 09/05/18 13:20 ABG Base Excess -2.6 mmol/L (-2-2) L 09/05/18 13:20 ABG Methemoglobin 1.4 % (0-2) 09/05/18 13:20 Reed Test Present 09/05/18 13:20 Hemoglobin 12.4 G/DL (12.0-16.0) 09/05/18 13:20 Carboxyhemoglobin 0.9 % (0-4) 09/05/18 13:20 O2 Delivery Device Ventilator 09/05/18 13:20 Vent Setting Cpap/5ps/5peep 09/05/18 13:20 Inspired O2 35 % 09/05/18 13:20 Critical Value No 09/05/18 13:20 Sodium 150 meq/L (136-145) H 09/05/18 03:59 Potassium 3.6 meq/L (3.5-5.1) 09/05/18 03:59 Chloride 121 meq/L (98-107) H 09/05/18 03:59 Carbon Dioxide 24.8 meq/L (21.0-32.0) 09/05/18 03:59 Anion Gap 4 meq/L (5-15) L 09/05/18 03:59 BUN 29 mg/dL (7-18) H 09/05/18 03:59 Creatinine 0.52 mg/dL (0.50-1.00) 09/05/18 03:59 Estimated GFR Greater than 89 mL/min (>89) 09/05/18 03:59 POC Glucose 111 mg/dl (68-110) H 09/05/18 09:10 Random Glucose 94 mg/dL (74-106) 09/05/18 03:59 Lactic Acid 1.0 mmol/L (0.4-2.0) 09/05/18 03:59 Calcium 7.6 mg/dL (8.5-10.1) L 09/05/18 03:59 Calcium Adj for Albumin 8.3 mg/dL (8.5-10.1) L 09/04/18 03:55 Phosphorus 2.1 mg/dL (2.5-4.9) L 09/05/18 03:59 Magnesium 2.3 mg/dL (1.5-2.5) 09/05/18 03:59 Total Bilirubin 0.6 mg/dL (0.2-1.0) 09/05/18 03:59 AST 14 U/L (15-37) L 09/05/18 03:59 ALT 11 U/L (10-53) 09/05/18 03:59 Alkaline Phosphatase 50 U/L (45-117) 09/05/18 03:59 Total Creatine Kinase 215 U/L (26-192) H 09/04/18 03:55 CK-MB (CK-2) 1.3 ng/mL (0.5-3.6) 09/04/18 03:55 CK-MB (CK-2) % 0.6 % (0.0-4.0) 09/04/18 03:55 Troponin I 0.07 ng/mL (0.02-0.05) H 09/04/18 03:55 Total Protein 5.5 g/dL (6.4-8.2) L 09/05/18 03:59 Albumin 2.2 g/dL (3.4-5.0) L 09/05/18 03:59 TSH 5.860 uIU/mL (0.358-3.740) H 09/04/18 10:07 Cortisol 41.7 mcg/dL 09/04/18 10:07 Urine Color Yellow (Yellw/Straw) 09/04/18 05:00 Urine Clarity Hazy (Clear) H 09/04/18 05:00 Urine pH 5.0 (5.0-8.5) 09/04/18 05:00 Ur Specific [place] 1.027 (1.002-1.035) 09/04/18 05:00 Urine Protein 30 mg/dL (Neg-Trace) H 09/04/18 05:00 Urine Glucose (UA) Negative mg/dL (Negative) 09/04/18 05:00 Urine Ketones Negative mg/dL (Negative) 09/04/18 05:00 Urine Occult Blood Negative (Negative) 09/04/18 05:00 Urine Nitrate Positive (Negative) H 09/04/18 05:00 Urine Bilirubin Negative (Negative) 09/04/18 05:00 Urine Urobilinogen 4 or greater mg/dL (Less than 2) 09/04/18 05:00 Ur Leukocyte Esterase Small (Negative) H 09/04/18 05:00 Urine RBC 1 /hpf (0-3) 09/04/18 05:00 Urine WBC 11 /hpf (0-5) H 09/04/18 05:00 Ur Squamous Epith Cells <1 /hpf (0-5) 09/04/18 05:00 Urine Bacteria Moderate /hpf (None) H 09/04/18 05:00 Hyaline Casts 6 /lpf (0-3) 09/04/18 05:00 Urine Mucus Many /lpf (Occasional) H 09/04/18 05:00 Micro UA Comment Cath-culture ind 09/04/18 05:00 Ur Microscopic Review Not Reportable 09/04/18 05:00 Urine Culture Comments Cath-cult indicated 09/04/18 05:00 Nasal Screen MRSA (PCR) Not detected (Negative) 09/04/18 06:45 Impressions Chest X-Ray 09/04/18 03:52 CONCLUSION: Elevation of the right hemidiaphragm with right basilar atelectasis. Head CT 09/04/18 05:26 CONCLUSION: 1. No acute intracranial abnormality. 2. Atrophy and chronic small vessel ischemic change. . Assessment and Plan - Problem List (1) Altered mental status Code(s): R41.82 - Altered mental status, unspecified Status: Acute (2) Hyperlipidemia Code(s): E78.5 - Hyperlipidemia, unspecified Status: Acute (3) Hemiplegia affecting left nondominant side Code(s): G81.94 - Hemiplegia, unspecified affecting left nondominant side Status: Acute (4) Hemiparesis affecting nondominant side as late effect of cerebrovascular accident Code(s): I69.359 - Hemiplegia and hemiparesis following cerebral infarction affecting unspecified side Status: Acute (5) Hypothyroidism Code(s): E03.9 - Hypothyroidism, unspecified Status: Acute - Assessment and Plan Plan: This is a 73-year-old female with a history of CVA, with left-sided hemiparesis and hemiplegia now presenting with aspiration with required intubation for airway protection. Currently septic with most likely metabolic encephalopathy. The patient is critically ill. The patient has a full CODE STATUS. 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 Left hemiparesis Left hemiplegia History of schizophrenia Neuro checks per ICU protocol Avoid sedative type agents for clear assessment of neuro status Tylenol 650 mg every 6 hours as needed, for pain and/or temperature greater than 100.5 Currently not on any sedatives to maintain vent ventilator synchrony Currently GCS of 6 Respiratory: Probable aspiration Acute hypoxemic respiratory failure Maintain O2 saturation greater than 92% Ventilator bundle Wean FiO2 currently at 40%, tidal volume 450 rate of 16 PEEP of 5 ABG 7.37/30 5/70 8/20/-3.7 Follow-up chest x-ray in am Bronchodilator every 4 hours as needed Cardiovascular: Hyperlipidemia Elevated troponin Maintain map greater than 65, she may require vasopressor support Monitor serial troponins most likely secondary to demand ischemia Continue aspirin 81 mg daily Renal: Davis catheter -- Strict I/Os FEN/GI: Hypernatremia Maintain n.p.o. status Zofran for nausea Famotidine for GI prophylaxis Maintain OGT tube currently clamped Begin free water flushes 200 cc Continue gentle IV hydration normal saline at 75 cc/hr GI consulted for evaluation PEG tube Tentative plan to resume tube feeds PEG tube noted patent Heme/ID: Urosepsis Leukocytosis Healthcare associated pneumonia versus aspiration Initial lactate 2.3, follow serial lactate levels Initiate Zosyn and vancomycin(day 2), Levaquin day/09/04 Blood culture-NGTD 09/04 Urine [id number] maria esther 09/04 Influenza A/B , pneumococcal, Legionella antigens-negative Monitor CBC Endocrine: Hypothyroidism Continue levothyroxine home medication 50 mcgs/day 09/04 TSH level elevated 5.8-recheck in 4-6 weeks -- SSI Prophylaxis: GI Prophylaxis Famotidine DVT Prophylaxis -- SCDs Heparin 5000 subcu twice daily Lines: Of IVs providing adequate access. Central line if indicated Palliative care was consulted yesterday extensive discussion with POA patient's [id number] the patient was made alternate CODE STATUS. The patient's CVA occurred approximately 2 weeks ago POA states patient was a very active individual and discussions are ongoing F patient meets extubation criteria the patient will be reintubated. Dispo: Level 3 follow-up Code Status: Alternative Code-Intubation only Discussed Condition With: MEDICA[employer] BUSINESS ANALYST at bedside
[2018-09-05] MEDS ORDERED: Potassium Chloride 25 MEQ Effervescent Tablet PO PRN (15:12)
[2018-09-05] MEDS ORDERED: Magnesium Sulfate Inj 2 GM in Sodium Chlor 0.9% Inj 96 ML IV.SIG PRN (15:12)
[2018-09-05] MEDS ORDERED: Potassium Chlor 40 mEq Premix 40 MEQ/100 ML PIGGYBACK IV.SIG PRN ×2 (15:12)
[2018-09-05] MEDS ORDERED: Magnesium Sulfate Inj 4 GM in Sodium Chlor 0.9% Inj 92 ML IV.SIG PRN (15:12)
[2018-09-05] MEDS ORDERED: Potassium Chlor 20 mEq Premix 20 MEQ/100 ML PIGGYBACK IV.SIG PRN (15:12)
[2018-09-05] MEDS ORDERED: Sodium Phosphate Inj 30 MMOL in Sodium Chlor 0.9% Inj 250 ML IV.SIG PRN (15:12)
[2018-09-05] MEDS ORDERED: Magnesium Oxide 400 MG Tablet PO PRN (15:12)
[2018-09-05] MEDS ORDERED: Potassium Phosphate 500 MG Soluble Tablet PO PRN ×2 (15:12)
--- NOTE | 2018-09-05 15:32 | XR ---
EXAM DATE: 09/05/2018 3:01 PM EST AGE/SEX: 73 years / Female INDICATIONS: Nausea and vomiting, evaluate for placement of peg tube CLINICAL DATA: This is the patient's initial encounter. Patient reports that signs and symptoms have been present for 2 days and indicates a pain score of Nonresponsive. MEDICAL/SURGICAL HISTORY: Non-responsive. Non-responsive. COMPARISON: No prior studies are available for comparison. FINDINGS: Portable supine frontal view of the abdomen demonstrates nasogastric tube distal tip in the stomach. Contrast has been injected into the feeding tube and only fills the bowel directly around the tubing . The appearance suggests that it may be in the distal stomach possibly in the antropyloric region. T here is oral contrast material in the colon from uncertain etiology. No free air is identified and no organomegaly is seen. There are degenerative changes of the visualized bones. CONCLUSION: The injected PEG tube has contrast pooling around the balloon resulting in poor evaluation of locatio n. However, given its location in the right upper quadrant this may be within the antral or pylorus r egion of the stomach. The contrast within the colon is of uncertain etiology. Given the appearance [facility] dedicated fluoroscopy evaluation to confirm position. Electronically signed by: Gunner Jorgensen MD 09/05/2018 3:30 PM EST
[2018-09-05] MEDS: Levofloxacin 250 mg Premix Inj 250 MG/50 ML PIGGYBACK IV.SIG SCH (17:03)
[2018-09-05] MEDS: Vancomycin Inj 1,250 MG in Sodium Chlor 0.9% Inj 250 ML IV.SIG SCH ×3 (17:04)
--- NOTE | 2018-09-05 17:33 | ECG ---
Date Performed: 09/04/2018 Time Performed: 08:59:00 PTAGE: 73 years EKG: Sinus rhythm . Left axis deviation Inferior infarct - age undetermined Possible anterior infarct - age undetermine d Lateral T wave changes may be due to myocardial ischemia Low QRS voltages in precordial leads Abnor mal ECG PREVIOUS TRACING : 09/04/2018 04.41 Since the previous tracing, no significant change noted DOCTOR: Sandra Tejada Interpretating Date/Time 09/05/2018 17:32:25
[2018-09-05] MEDS: Heparin - SQ 10,000 UNITS/ML Vial SQ SCH (20:05)
[2018-09-06 04:30] LABS: ABG PCO2 34 mmHg (38-42); ABG PO2 104 mmHG (61-120)
[2018-09-06 05:11] LABS: Baso % (Auto) 0.3 % (0.0-2.0); Eos % (Auto) 0.1 % (0.0-4.0); Hematocrit 35.9 % (35.0-46.0); Hemoglobin 12.1 gm/dL (11.6-15.3); Lymph % (Auto) 7.4 % (9.0-44.0); Mean Corpuscular HGB Conc 33.7 % (32.0-36.0); Mean Corpuscular Hemoglobin 30.5 pg (27.0-34.0); Mean Corpuscular Volume 90.6 fL (80.0-100.0); Mean Platelet Volume 10.9 fL (7.0-11.0); Mono # (Auto) 0.9 th/mm3 (0.0-0.9); Mono % (Auto) 6.4 % (0.0-8.0); Neut # (Auto) 11.8 th/mm3 (1.8-7.7); Neut % (Auto) 85.8 % (16.0-70.0); Platelet Count 107 th/mm3 (150-450); Red Blood Count 3.97 mil/mm3 (4.00-5.30); Red Cell Distribution Width 13.6 % (11.6-17.2); White Blood Count 13.7 th/mm3 (4.0-11.0)
[2018-09-06] MEDS: Chlorhexidine Gluconate 2% 1 Pack (2 Cloths) TOPICAL SCH (05:25)
[2018-09-06] MEDS: Oral Hygiene Kit OROPHARYNG SCH ×4 (05:25→15:03)
[2018-09-06] MEDS: Levothyroxine 50 MCG Tablet PO SCH (05:26)
--- NOTE | 2018-09-06 05:53 | XR ---
EXAM DATE: 09/06/2018 5:47 AM EST AGE/SEX: 73 years / Female INDICATIONS: Respiratory failure. CLINICAL DATA: This is the patient's subsequent encounter. Patient reports that signs and symptoms h ave been present for 2 days and indicates a pain score of Nonresponsive. MEDICAL/SURGICAL HISTORY: . Sepsis. AMS. Pneumonia. Non-responsive. COMPARISON: [facility], CHEST 1V SINGLE AP, 09/04/2018. . FINDINGS: There is elevation of the right hemidiaphragm with atelectasis at the right lung base as before. Endo tracheal tube tip at the inferior margin the clavicles. Left lung is clear. Osseous structures are in tact. CONCLUSION: Stable appearance of the chest. Electronically signed by: Kannan Reina MD 09/06/2018 5:52 AM EST
[2018-09-06] MEDS: Famotidine PF Inj 20 MG/2 ML Vial IV.PUSH SCH ×2 (08:28→20:48)
[2018-09-06] MEDS: Senna/Docusate Sodium 8.6/50 MG Tablet PO SCH ×2 (08:29→20:49)
[2018-09-06] MEDS: Chlorhexidine 0.12% Oral Kit 15 ML UDC OROPHARYNG SCH ×2 (08:29→20:47)
[2018-09-06] MEDS: Miconazole 2% Cream 15 GM Tube TOPICAL SCH ×2 (08:29→20:48)
[2018-09-06] MEDS ORDERED: Pharmacy Ordered Lab Info OTHER ONE (11:45)
[2018-09-06 12:01] LABS: Anion Gap 7 meq/L (5-15); Blood Urea Nitrogen 18 mg/dL (7-18); Calcium 7.7 mg/dL (8.5-10.1); Carbon Dioxide 22.2 meq/L (21.0-32.0); Chloride 119 meq/L (98-107); Glomerular Filtration Rate Greater Than 89 mL/min (>89); Glucose,Random 80 mg/dL (74-106); Magnesium 2.2 mg/dL (1.5-2.5); Sodium 148 meq/L (136-145)
[2018-09-06 12:07] LABS: Vancomycin,Trough 7.2 mcg/mL (5.0-10.0)
--- NOTE | 2018-09-06 12:20 | P.CONPAL ---
Consult Service: Palliative Care Requesting Physician: Leatha Cardenas Reason for Consult: a. To assist with evaluation and management of symptoms including:Dyspnea, dysphagia, altered mental status, Debility b. To assist medical decision maker(s) with: better understanding of current medical conditions; weighing benefits/burdens of medical treatment options; making medical treatment decisions. Primary Care Provider: Charly Milan MD History of Present Illness History of Present Illness: Mrs. Okeefe is a 73-year-old female with a past medical history of cerebral infarction, chronic dysphagia post intracerebral hemorrhage, PEG tube, encephalopathy, left-sided hemiparesis, hemiplegia to nondominant left side, hyperlipidemia, hypothyroidism, major depressive disorder, schizophrenia and TIA. Patient was brought by EMS to the emergency room on 09/04/18 from a senior care facility for evaluation of lethargy, tachycardia with dyspnea. Patient's baseline is alert and interactive. Upon EMS arrival, patient`s O2 saturation was 86% and patient was also noted to have tube feeding around the vocal cord in length. Patient was intubated in route to [facility]. She also received 2 L IV fluids. ER course: * Vital signs-temperature 101.0F, O2 saturation 100% * Laboratory workup revealed WBC 17.7, hemoglobin 15.8, hematocrit 47.0, platelet count 165, sodium 150, potassium 3.7, BUN/creatinine 144/1.01, random glucose 139, lactic acid 2.3, calcium 7.2, magnesium 2.4, AST 22, ALT 1 3, troponin 0 0.07, total protein 5.9, albumin 2.6, TSH 5.860, cortisol 41.7 * CT head revealed no acute intracranial abnormality. Atrophy and chronic small vessel ischemic changes. * EKG revealed sinus rhythm with left anterior fascicular block abnormal R wave progression. * Echocardiogram revealed normal left ventricular systolic function with an estimated ejection fraction of 60%. * Chest x-ray revealed elevation of the right hemidiaphragm with right basilar atelectasis. * Blood culture collected. Showing no growth in 2 days. * Urinalysis positive for leukocyte esterase and nitrates. Culture positive for E. Coli * Antibiotics administered * Patient admitted for further evaluation and treatment under critical care management physicians. GI Dr. Velasco consulted on 09/05/18 to evaluate PEG tube patency and placement , recommended KUB with Gastrografin to assess for placement. Abdominal x-ray on 09/05 to evaluate placement of PEG tube showed contrast pooling around the balloon resulting in poor evaluation of location, radiologist recommended dedicated fluoroscopy evaluation to confirm position. Chest x-ray on 09/06/18 revealed stable appearance. It is noted that, per discussion with critical care physician- family decided to make patient an alternate code-intubation only. Clinical course complicated with persistent leukocytosis, dyspnea and urinary tract infection. Palliative care consulted on 09/06/2018 to assist with symptom management and establishment of goals of medical treatment. Patient seen and examined in her room on MICU. Patient is endotracheally intubated, not sedated on mechanical ventilation. Patient is on CPAP 10/5/35%. Patient is awake, tracks with eyes, follows commands with right upper extremity and right lower extremity, able to lift up 2 fingers with right hand when instructed to do so. Patient is flaccid to the left upper and lower extremities. Patient not showing any signs of pain or discomfort in this time. PEG tube currently clamped-plan is to change PEG tube today per GI LOADER MACHINE and bedside RN. Telephone conversation with patient's [id number] Erika Okeefe who resided with and cared for patient for the past 6 months prior to patient having a stroke. Introduced palliative care and its role in symptom management and establishment of goals of medical treatment. Obtained psychosocial, past medical history and events leading to this hospitalization. Reviewed medical interventions and treatment that has been offered up to date. Patient's [id number]-ikh stated that she is patient's DURABLE POWER OF INTERNAL MEDICINE PHYSICIAN. Patient had moved in with her son and rimvjpxl-pa-dom 6 months ago due to failing health and inability to take care of herself. At that time, patient was already debilitated with a poor quality of life due to multiple ongoing comorbidities. Unfortunately patient's son 3 months ago from esophageal cancer. Approximately 2 weeks ago patient had a stroke which left her with left -sided hemiplegia, dysphagia requiring placement of a PEG tube and aphasia. Patient has been bedbound since then. Patient's [id number] who has been making medical decisions for patient since patient`s son , feels that patient`s quality of life has significantly declined and patient is very debilitated. She understands that patient will continue to have complications from ongoing multiple comorbidities. She states that she does not want patient to continue suffering and after reviewing CODE STATUS patient's fwytdalj-wn-fqo feels DO NOT RESUSCITATE/DO NOT INTUBATE CODE STATUS would be more appropriate for patient. Introduced hospice philosophy and benefits. Patient's daughter-in -law would like patient's PEG tube to be replaced and patient to be treated for urinary tract infection. She feels that it would be for patient to transition to comfort measures through hospice services at the time of discharge depending on how patient does. Provided patient's ntdnxejf-lw-bhr with palliative care contact information. Upon review of DPOA paperwork on patient`s chart after goals of medical treatment conversation with Erika Okeefe noted that DPOA does not include healthcare decision making. Another telephone conversation with patient's awtzsikl-fq-tax Erika updating her that DPOA does not include healthcare decision making. Patient is and she only had one son, who is now , parents also and 2 living siblings a sister Nicolle Toledo and brother Heath Rayo. Erika Maldonado stated that she will provide patient`s siblings contact information after work. Case discussed with bedside RN and GI LOADER MACHINE. . Function/Cognitive Trajectory: Psychosocial information obtained from patient`s daughter in law Erika Maldonado- alternate DPOA not including Healthcare. Patient used to live alone with roommates about 6 months ago until her late son Maldonado Dove (DPOA not including healthcare) and daughter in law Erika decided to take patient into their home due to failing health. At that time patient was not able to take care of herself, and even manage keeping up with her medication regimen. After moving in with her son and daughter in law, patient started ambulating but still required assistance in most of her ADLS. Approximately 2 weeks ago patient had a stroke, leaving her with left-sided hemiplegia, dysphagia and aphasic. Patient was discharged to a senior care facility and has been bedbound and dependent of all her ADLs with her needs being mostly anticipated. Patient has a PEG tube that was inserted approximately 2 weeks ago at [facility] during her last hospitalization. Review of Systems Constitutional: Reports fever(s), Reports weakness Eyes: Denies bulging eyes Ears, Nose, Mouth, and Throat: Reports difficulty swallowing Cardiovascular: Reports shortness of breath Respiratory: Reports shortness of breath Gastrointestinal: Reports difficulty swallowing, Denies nausea Genitourinary: Reports urinary incontinence, Denies blood in urine Musculoskeletal: Reports limited joint movement Neurologic: Reports confusion Psychiatric: Reports confusion, Reports depression Hematologic/Lymphatic: Reports easy bruising PMFSH - History History Provided By: Operations Plant Attendant / EMT - Medical History Medical History: Medical History (Last Updated 09/06/18 @ 11:54 by Yael Bean) Cerebral infarction Dysphagia due to old intracerebral hemorrhage Encephalopathy Hemiparesis affecting left side as late effect of stroke Hemiplegia affecting left nondominant side Hyperlipemia Hypothyroidism Major depressive disorder Muscle weakness (generalized) Schizophrenia TIA (transient ischemic attack) - Surgical History Surgical History: Surgical History (Last Updated 09/06/18 @ 11:56 by Yael Bean) Status post insertion of percutaneous endoscopic gastrostomy (PEG) tube - Family History Family History: Family History (Last Updated 09/06/18 @ 15:34 by Yael Bean) Son Esophageal cancer - Social History I have reviewed the patient's Social History: Yes - Tobacco History Second Hand Smoke Exposure: No Smoking Status: Never smoker - Alcohol History How Often Do You Have a Drink Containing Alcohol: Never - Substance Use History Substance History: Unable to Obtain - Travel History Recent Travel in the [place] Within the Last 8 Weeks: No Recent Travel Out of the Country Within the Last 8 Weeks: No - Immunization History Tetanus Immunization: Unable to Assess Hx Influenza Vaccine This Season: No Medications and Allergies Active Medications: Active Medications Acetaminophen (Tylenol) 650 mg PO Q6H PRN PRN Reason: PAIN 1-10 AND/OR FEVER >101F Al Hydroxide/Mg Hydroxide (Milk Of Magnsamra Liq) 30 ml PO Q12H PRN PRN Reason: Mild Constipation Albuterol (Duoneb Neb (Prn)) 1 ampul NEB Q2HR NEB PRN PRN Reason: WHEEZING Last Admin: 09/05/18 06:17 Dose: 1 ampul Aspirin (Aspirin Chew) 81 mg PO DAILY [facility] Last Admin: 09/05/18 09:00 Dose: 81 mg Bisacodyl (Dulcolax Supp) 10 mg RECTAL DAILY PRN PRN Reason: SEVERE CONSITIPATION Chlorhexidine Gluconate (Peridex 0.12% Oral Kit) 15 ml OROPHARYNG BID@0800, 2000 [facility] Last Admin: 09/06/18 08:29 Dose: 15 ml Chlorhexidine Gluconate (Chlorhexidine 2% Cloth) 3 pack TOPICAL DAILY@0400 PRN PRN Reason: Extra cloth needed Stop: 09/10/18 03:59 Chlorhexidine Gluconate (Chlorhexidine 2% Cloth) 3 pack TOPICAL DAILY@0400 [facility] Stop: 09/10/18 03:59 Last Admin: 09/06/18 05:25 Dose: 3 pack Famotidine (Pepcid) 20 mg PO BID [facility] Famotidine (Pepcid Pf Inj) 20 mg IV.PUSH Q12HR [facility] Last Admin: 09/06/18 08:28 Dose: 20 mg Heparin Sodium (Porcine) (Heparin Inj) 5,000 units SQ Q12HR [facility] Last Admin: 09/05/18 20:05 Dose: 5,000 units Sodium Chloride (Ns Inj) 1,000 mls @ 75 mls/hr IV.CONT .[id number] [facility] Last Admin: 09/05/18 22:36 Dose: 75 mls/hr Cefepime HCl 2,000 mg/ Sodium (Chloride) 100 mls @ 200 mls/hr IV.SIG Q12H [facility] Last Admin: 09/06/18 08:29 Dose: 200 mls/hr Vancomycin HCl 1,250 mg/ (Sodium Chloride) 262.5 mls @ 250 mls/hr IV.SIG Q18H [facility] Last Infusion: 09/06/18 05:27 Dose: Infused Levofloxacin/Dextrose (Levaquin 250 Mg Premix Inj) 250 mg in 50 mls @ 50 mls/ hr IV.SIG Q24H [facility] Stop: 09/09/18 23:59 Last Infusion: 09/06/18 05:28 Dose: Infused Magnesium Sulfate 2 gm/ Sodium (Chloride) 100 mls @ 50 mls/hr IV.SIG UNSCH PRN PRN Reason: For Magnesium 1.2 - 1.6 mg/dL Potassium Chloride (Kcl 40 Meq Premix Inj) 40 meq in 100 mls @ 25 mls/hr IV.SIG Q2H PRN PRN Reason: For Potassium 2.8 - 3.2 mEq/L Potassium Chloride (Kcl 20 Meq Premix Inj) 20 meq in 100 mls @ 50 mls/hr IV.SIG Q2H PRN PRN Reason: For Potassium 3.3 - 3.5 mEq/L Potassium Chloride (Kcl 40 Meq Premix Inj) 40 meq in 100 mls @ 25 mls/hr IV.SIG UNSCH PRN PRN Reason: For Potassium 3.3 - 3.5 mEq/L Potassium Chloride (Kcl 20 Meq Premix Inj) 20 meq in 100 mls @ 50 mls/hr IV.SIG Q2H PRN PRN Reason: For Potassium 2.8 - 3.2 mEq/L Potassium Phosphate 30 mmol/ (Sodium Chloride) 260 mls @ 42 mls/hr IV.SIG UNSCH PRN PRN Reason: SEE LABEL COMMENTS Sodium Phosphate 30 mmol/ (Sodium Chloride) 260 mls @ 42 mls/hr IV.SIG UNSCH PRN PRN Reason: For Phosphorus < 2.5 mg/dL Magnesium Sulfate 4 gm/ Sodium (Chloride) 100 mls @ 50 mls/hr IV.SIG UNSCH PRN PRN Reason: For Magnesium 0.9 - 1.1 mg/dL Lactulose (Lactulose Liq) 30 ml PO DAILY PRN PRN Reason: SEVERE CONSITIPATION Levothyroxine Sodium (Synthroid) 50 mcg PO DAILY@0600 [facility] Last Admin: 09/06/18 05:26 Dose: 50 mcg Magnesium Oxide (Mag-Ox) 800 mg PO UNSCH PRN PRN Reason: For Magnesium 1.2 - 1.6 mg/dL Miconazole Nitrate (Micatin 2% Cream) 1 applicatio TOPICAL BID [facility] Last Admin: 09/06/18 08:29 Dose: 1 applicatio Miscellaneous Information ([facility] Ordered Lab Info) 0 each OTHER ONCE ONE Stop: 09/06/18 11:46 Miscellaneous Medication () 1 each OROPHARYNG 0000,0400,1200,1600 [facility] Last Admin: 09/06/18 05:26 Dose: 1 each Nystatin (Mycostatin Cream) 1 applicatio TOPICAL BID [facility] Last Admin: 09/06/18 08:29 Dose: 1 applicatio Ondansetron HCl (Zofran Inj) 4 mg IV.PUSH Q6H PRN PRN Reason: NAUSEA OR VOMITING Pharmacy Profile Note (Vancomycin Consult Pharmacy) 1 each OTHER UNSCH PRN PRN Reason: Pharmacy to dose Potassium Bicarb/Potassium Chloride (K-Lyte Cl Eff) 50 meq PO UNSCH PRN PRN Reason: For Potassium 3.3 - 3.5 mEq/L Potassium Phosphate (K-Phos Original) 2,000 mg PO Q4H PRN PRN Reason: Phosphorus Less Than 2.5 mg/dL Potassium Phosphate (K-Phos Original) 2,000 mg PO UNSCH PRN PRN Reason: SEE LABEL COMMENTS Senna/Docusate Sodium (Jeniffer-Colace) 1 tab PO BID [facility] Last Admin: 09/06/18 08:29 Dose: 1 tab Sennosides (Senokot) 17.2 mg PO Q12H PRN PRN Reason: Moderate Constipation Sodium Chloride (Ns Flush) 2 ml IV.FLUSH BID [facility] Last Admin: 09/06/18 08:29 Dose: 2 ml Sodium Chloride (Ns Flush) 2 ml IV.FLUSH PRN PRN PRN Reason: FLUSH AFTER USING IV ACCESS Sterile Water (Free Water) 200 ml G-TUBE Q6HR [facility] Last Admin: 09/06/18 05:29 Dose: Not Given Allergies Allergy/AdvReac Type Severity Reaction Status Date / Time No Known Allergies Allergy Verified 09/04/18 03:59 Home Medications Medication Instructions Recorded Confirmed Type acetaminophen 650 mg IA Q6H PRN 09/04/18 09/04/18 History aspirin 81 mg PO DAILY 09/04/18 09/04/18 History atorvastatin 20 mg PO DAILY 09/04/18 09/04/18 History cariprazine [Vraylar] 3 mg PO DAILY 09/04/18 09/04/18 History fluoxetine [Prozac] 20 mg PO DAILY 09/04/18 09/04/18 History hydrocortisone 1 applic TOPICAL BID 09/04/18 09/04/18 History ipratropium-albuterol 3 ml INHALATION Q6-8H PRN 09/04/18 09/04/18 History levothyroxine 25 mcg PO DAILY 09/04/18 09/04/18 History metronidazole [MetroCream] 1 applic TOPICAL BID 09/04/18 09/04/18 History Advance Directives Health Care Surrogate Name and Number: HCP: Heath Toledo Power of Glass Novelty Maker Relationship to Patient: Children (DURABLE POWER OF INTERNAL MEDICINE PHYSICIAN not including healthcare) Ethical and Legal Issues: None identified at this time . Physical Exam Vital Signs: Vital Signs - 24 hr 09/05/18 11:37 09/05/18 12:00 09/05/18 13:00 Temperature 99.0 F 99.0 F Pulse Rate 51 L 53 L Respiratory Rate 16 16 17 Blood Pressure 132/63 135/62 Pulse Oximetry 100 100 99 09/05/18 14:00 09/05/18 15:00 09/05/18 15:59 Temperature 99.1 F 99.1 F Pulse Rate 53 L 53 L Respiratory Rate 13 15 13 Blood Pressure 122/61 137/65 Pulse Oximetry 100 98 100 09/05/18 16:00 09/05/18 16:01 09/05/18 17:00 Temperature 99.0 F 99.0 F 99.1 F Pulse Rate 51 L 52 L 52 L Respiratory Rate 13 14 15 Blood Pressure 128/60 136/65 Pulse Oximetry 99 99 99 09/05/18 18:00 09/05/18 19:00 09/05/18 19:57 Temperature 99.1 F 99.3 F Pulse Rate 51 L 51 L Respiratory Rate 15 17 17 Blood Pressure 144/65 H 145/67 H Pulse Oximetry 100 100 99 09/05/18 20:00 09/05/18 21:00 09/05/18 22:00 Temperature 99.3 F 99.3 F 99.3 F Pulse Rate 52 L 52 L 50 L Respiratory Rate 16 15 15 Blood Pressure 144/65 H 144/67 H 135/63 Pulse Oximetry 99 98 99 09/05/18 23:00 09/05/18 23:59 09/06/18 00:00 Temperature 99.5 F 99.5 F Pulse Rate 52 L 53 L Respiratory Rate 16 15 16 Blood Pressure 150/70 H 153/69 H Pulse Oximetry 99 99 99 09/06/18 01:00 09/06/18 02:00 09/06/18 02:37 Temperature 99.5 F 99.3 F Pulse Rate 52 L 51 L Respiratory Rate 16 16 14 Blood Pressure 152/70 H 151/69 H Pulse Oximetry 99 99 97 09/06/18 03:00 09/06/18 04:00 09/06/18 04:57 Temperature 99.1 F 99.0 F Pulse Rate 55 L 53 L Respiratory Rate 16 15 13 Blood Pressure 145/68 H 154/72 H Pulse Oximetry 99 99 100 09/06/18 05:00 09/06/18 06:00 09/06/18 08:00 Temperature 99.0 F 99.0 F 98.2 F Pulse Rate 50 L 48 L 49 L Respiratory Rate 15 15 16 Blood Pressure 160/74 H 163/77 H 147/80 H Pulse Oximetry 99 99 100 09/06/18 08:13 Temperature Pulse Rate Respiratory Rate 15 Blood Pressure Pulse Oximetry 100 I&O: Intake & Output 09/04/18 09/05/18 09/06/18 09/07/18 06:59 06:59 06:59 06:59 Intake Total 1050 / 1050 3222.5 / 3222.5 3512.5 / 3512.5 Output Total 425 / 425 1150 / 1150 Balance 1050 / 1050 2797.5 / 2797.5 2362.5 / 2362.5 Weight 66.3 kg 68.6 kg 69.2 kg Physical Exam: CONSTITUTIONAL/GENERAL: This is an elderly chronically ill looking patient in no apparent distress. TUBES/LINES/DRAINS: ETT, PEG tube, PIV, Davis catheter SKIN: No jaundice, rashes, or lesions. Ecchymoses on upper extremities. No wounds seen anteriorly. Skin temperature appropriate. Not diaphoretic. HEAD: Atraumatic. Normocephalic. EYES: Pupils equal and round and reactive. Extraocular motions intact. No scleral icterus. No injection or drainage. Fundi not examined. ENT: Hearing grossly normal. Nose without bleeding or purulent drainage. Moist oral mucosa. Endotracheally intubated. NECK: Trachea midline. Supple, nontender. CARDIOVASCULAR: Regular rate and rhythm without murmurs, gallops, or rubs. No JVD. Peripheral pulses symmetric. RESPIRATORY/CHEST: Symmetric, unlabored respirations. Diminished breath sounds. No wheezes, rales, or rhonchi. GASTROINTESTINAL: Abdomen soft, non-tender, nondistended. No guarding. Bowel sounds present. GENITOURINARY: Without palpable bladder distension. Davis catheter in place. MUSCULOSKELETAL: Extremities without clubbing, cyanosis, or edema. No joint tenderness or effusion noted. No calf tenderness. No mottling or clubbing. LYMPHATICS: Did not assess NEUROLOGICAL: Awake, following commands with right side, flaccid to left side. PSYCHIATRIC: Unable to assess. Currently calm. Diagnostic Tests Laboratory: Laboratory Results - last 72 hr 09/04/18 09/04/18 09/04/18 03:55 03:55 03:59 WBC 17.7 H RBC 5.07 Hgb 15.8 H Hct 47.0 H MCV 92.7 MCH 31.2 MCHC 33.6 RDW 13.8 Plt Count 165 MPV 10.4 Neut % (Auto) 85.7 H Lymph % (Auto) 3.6 L [place] % (Auto) 10.4 H Eos % (Auto) 0.0 Baso % (Auto) 0.3 Neut # (Auto) 15.2 H Lymph # (Auto) 0.6 L [place] # (Auto) 1.8 H Eos # (Auto) 0.0 Baso # (Auto) 0.1 WBC Differential . Differential Comment Auto diff final Puncture Site Left brachial Patient Temperature 98.6 O2 Saturation 98 ABG pH 7.49 H ABG pCO2 30 L ABG pO2 295 H ABG HCO3 22 ABG O2 Content 22.8 H ABG Base Excess -0.7 ABG Methemoglobin 0.6 Reed Test Hemoglobin 16.0 Carboxyhemoglobin 1.0 O2 Delivery Device Vent Vent Setting See comments Inspired O2 100 Critical Value No Sodium 150 H Potassium Chloride 118 H Carbon Dioxide 24.9 Anion Gap 7 BUN 44 H Creatinine 1.01 H Estimated GFR 54 L POC Glucose Random Glucose 139 H Lactic Acid Calcium 7.2 L* Calcium Adj for Albumin 8.3 L Phosphorus Magnesium 2.4 Total Bilirubin 0.7 AST 22 ALT 13 Alkaline Phosphatase 53 Total Creatine Kinase 215 H CK-MB (CK-2) 1.3 CK-MB (CK-2) % 0.6 Troponin I 0.07 H Total Protein 5.9 L Albumin 2.6 L TSH Cortisol Urine Color Urine Clarity Urine pH Ur Specific [place] Urine Protein Urine Glucose (UA) Urine Ketones Urine Occult Blood Urine Nitrate Urine Bilirubin Urine Urobilinogen Ur Leukocyte Esterase Urine RBC Urine WBC Ur Squamous Epith Cells Urine Bacteria Hyaline Casts Urine Mucus Micro UA Comment Ur Microscopic Review Urine Culture Comments Nasal Screen MRSA (PCR) 09/04/18 09/04/18 09/04/18 04:00 05:00 05:29 WBC RBC Hgb Hct MCV MCH MCHC RDW Plt Count MPV Neut % (Auto) Lymph % (Auto) [place] % (Auto) Eos % (Auto) Baso % (Auto) Neut # (Auto) Lymph # (Auto) [place] # (Auto) Eos # (Auto) Baso # (Auto) WBC Differential Differential Comment Puncture Site Left brachial Patient Temperature 98.6 O2 Saturation 98 ABG pH 7.50 H ABG pCO2 27 L ABG pO2 244 H ABG HCO3 21 L ABG O2 Content 22.6 H ABG Base Excess -2.3 L ABG Methemoglobin 0.7 Reed Test Present Hemoglobin 16.0 Carboxyhemoglobin 0.7 O2 Delivery Device Vent Vent Setting See commets Inspired O2 100 Critical Value No Sodium Potassium Chloride Carbon Dioxide Anion Gap BUN Creatinine Estimated GFR POC Glucose Random Glucose Lactic Acid 2.3 H Calcium Calcium Adj for Albumin Phosphorus Magnesium Total Bilirubin AST ALT Alkaline Phosphatase Total Creatine Kinase CK-MB (CK-2) CK-MB (CK-2) % Troponin I Total Protein Albumin TSH Cortisol Urine Color Yellow Urine Clarity Hazy H Urine pH 5.0 Ur Specific [place] 1.027 Urine Protein 30 H Urine Glucose (UA) Negative Urine Ketones Negative Urine Occult Blood Negative Urine Nitrate Positive H Urine Bilirubin Negative Urine Urobilinogen 4 or greater Ur Leukocyte Esterase Small H Urine RBC 1 Urine WBC 11 H Ur Squamous Epith Cells <1 Urine Bacteria Moderate H Hyaline Casts 6 Urine Mucus Many H Micro UA Comment Cath-culture ind Ur Microscopic Review Not Reportable Urine Culture Comments Cath-cult indicated Nasal Screen MRSA (PCR) 09/04/18 09/04/18 09/04/18 06:45 08:10 10:07 WBC RBC Hgb Hct MCV MCH MCHC RDW Plt Count MPV Neut % (Auto) Lymph % (Auto) [place] % (Auto) Eos % (Auto) Baso % (Auto) Neut # (Auto) Lymph # (Auto) [place] # (Auto) Eos # (Auto) Baso # (Auto) WBC Differential Differential Comment Puncture Site Right radial Patient Temperature 98.6 O2 Saturation 92 ABG pH 7.38 ABG pCO2 36 L ABG pO2 78 ABG HCO3 21 L ABG O2 Content 19.6 ABG Base Excess -3.7 L ABG Methemoglobin 1.4 Reed Test Present Hemoglobin 15.1 Carboxyhemoglobin 0.6 O2 Delivery Device Ventilator Vent Setting Prvc16/450/1.0/+5 Inspired O2 40 Critical Value No Sodium Potassium Chloride Carbon Dioxide Anion Gap BUN Creatinine Estimated GFR POC Glucose Random Glucose Lactic Acid 2.4 H Calcium Calcium Adj for Albumin Phosphorus Magnesium Total Bilirubin AST ALT Alkaline Phosphatase Total Creatine Kinase CK-MB (CK-2) CK-MB (CK-2) % Troponin I Total Protein Albumin TSH Cortisol Urine Color Urine Clarity Urine pH Ur Specific [place] Urine Protein Urine Glucose (UA) Urine Ketones Urine Occult Blood Urine Nitrate Urine Bilirubin Urine Urobilinogen Ur Leukocyte Esterase Urine RBC Urine WBC Ur Squamous Epith Cells Urine Bacteria Hyaline Casts Urine Mucus Micro UA Comment Ur Microscopic Review Urine Culture Comments Nasal Screen MRSA (PCR) Not detected 09/04/18 09/04/18 09/04/18 10:07 10:07 10:07 WBC RBC Hgb Hct MCV MCH MCHC RDW Plt Count MPV Neut % (Auto) Lymph % (Auto) [place] % (Auto) Eos % (Auto) Baso % (Auto) Neut # (Auto) Lymph # (Auto) [place] # (Auto) Eos # (Auto) Baso # (Auto) WBC Differential Differential Comment Puncture Site Patient Temperature O2 Saturation ABG pH ABG pCO2 ABG pO2 ABG HCO3 ABG O2 Content ABG Base Excess ABG Methemoglobin Reed Test Hemoglobin Carboxyhemoglobin O2 Delivery Device Vent Setting Inspired O2 Critical Value Sodium Potassium 3.7 Chloride Carbon Dioxide Anion Gap BUN Creatinine Estimated GFR POC Glucose Random Glucose Lactic Acid Calcium Calcium Adj for Albumin Phosphorus Magnesium Total Bilirubin AST ALT Alkaline Phosphatase Total Creatine Kinase CK-MB (CK-2) CK-MB (CK-2) % Troponin I Total Protein Albumin TSH 5.860 H Cortisol 41.7 Urine Color Urine Clarity Urine pH Ur Specific [place] Urine Protein Urine Glucose (UA) Urine Ketones Urine Occult Blood Urine Nitrate Urine Bilirubin Urine Urobilinogen Ur Leukocyte Esterase Urine RBC Urine WBC Ur Squamous Epith Cells Urine Bacteria Hyaline Casts Urine Mucus Micro UA Comment Ur Microscopic Review Urine Culture Comments Nasal Screen MRSA (PCR) 09/04/18 09/04/18 09/05/18 10:31 18:39 00:19 WBC RBC Hgb Hct MCV MCH MCHC RDW Plt Count MPV Neut % (Auto) Lymph % (Auto) [place] % (Auto) Eos % (Auto) Baso % (Auto) Neut # (Auto) Lymph # (Auto) [place] # (Auto) Eos # (Auto) Baso # (Auto) WBC Differential Differential Comment Puncture Site Patient Temperature O2 Saturation ABG pH ABG pCO2 ABG pO2 ABG HCO3 ABG O2 Content ABG Base Excess ABG Methemoglobin Reed Test Hemoglobin Carboxyhemoglobin O2 Delivery Device Vent Setting Inspired O2 Critical Value Sodium Potassium Chloride Carbon Dioxide Anion Gap BUN Creatinine Estimated GFR POC Glucose 125 H 99 79 Random Glucose Lactic Acid Calcium Calcium Adj for Albumin Phosphorus Magnesium Total Bilirubin AST ALT Alkaline Phosphatase Total Creatine Kinase CK-MB (CK-2) CK-MB (CK-2) % Troponin I Total Protein Albumin TSH Cortisol Urine Color Urine Clarity Urine pH Ur Specific [place] Urine Protein Urine Glucose (UA) Urine Ketones Urine Occult Blood Urine Nitrate Urine Bilirubin Urine Urobilinogen Ur Leukocyte Esterase Urine RBC Urine WBC Ur Squamous Epith Cells Urine Bacteria Hyaline Casts Urine Mucus Micro UA Comment Ur Microscopic Review Urine Culture Comments Nasal Screen MRSA (PCR) 09/05/18 09/05/18 09/05/18 03:59 03:59 03:59 WBC 16.1 H RBC 4.41 Hgb 13.2 D Hct 40.8 MCV 92.6 MCH 30.0 MCHC 32.4 RDW 14.1 Plt Count 122 L MPV 9.6 Neut % (Auto) 83.5 H Lymph % (Auto) 9.6 [place] % (Auto) 6.5 Eos % (Auto) 0.1 Baso % (Auto) 0.3 Neut # (Auto) 13.4 H Lymph # (Auto) 1.5 [place] # (Auto) 1.0 H Eos # (Auto) 0.0 Baso # (Auto) 0.1 WBC Differential . Differential Comment Auto diff final Puncture Site Patient Temperature O2 Saturation ABG pH ABG pCO2 ABG pO2 ABG HCO3 ABG O2 Content ABG Base Excess ABG Methemoglobin Reed Test Hemoglobin Carboxyhemoglobin O2 Delivery Device Vent Setting Inspired O2 Critical Value Sodium 150 H Potassium 3.6 Chloride 121 H Carbon Dioxide 24.8 Anion Gap 4 L BUN 29 H Creatinine 0.52 Estimated GFR Greater than 89 POC Glucose Random Glucose 94 Lactic Acid 1.0 Calcium 7.6 L Calcium Adj for Albumin Phosphorus 2.1 L Magnesium 2.3 Total Bilirubin 0.6 AST 14 L ALT 11 Alkaline Phosphatase 50 Total Creatine Kinase CK-MB (CK-2) CK-MB (CK-2) % Troponin I Total Protein 5.5 L Albumin 2.2 L TSH Cortisol Urine Color Urine Clarity Urine pH Ur Specific [place] Urine Protein Urine Glucose (UA) Urine Ketones Urine Occult Blood Urine Nitrate Urine Bilirubin Urine Urobilinogen Ur Leukocyte Esterase Urine RBC Urine WBC Ur Squamous Epith Cells Urine Bacteria Hyaline Casts Urine Mucus Micro UA Comment Ur Microscopic Review Urine Culture Comments Nasal Screen MRSA (PCR) 09/05/18 09/05/18 09/05/18 09:10 13:20 15:40 WBC RBC Hgb Hct MCV MCH MCHC RDW Plt Count MPV Neut % (Auto) Lymph % (Auto) [place] % (Auto) Eos % (Auto) Baso % (Auto) Neut # (Auto) Lymph # (Auto) [place] # (Auto) Eos # (Auto) Baso # (Auto) WBC Differential Differential Comment Puncture Site Right radial Patient Temperature 98.6 O2 Saturation 95 ABG pH 7.42 ABG pCO2 33 L ABG pO2 87 ABG HCO3 21 L ABG O2 Content 16.6 ABG Base Excess -2.6 L ABG Methemoglobin 1.4 Reed Test Present Hemoglobin 12.4 Carboxyhemoglobin 0.9 O2 Delivery Device Ventilator Vent Setting Cpap/5ps/5peep Inspired O2 35 Critical Value No Sodium Potassium Chloride Carbon Dioxide Anion Gap BUN Creatinine Estimated GFR POC Glucose 111 H Random Glucose Lactic Acid 0.8 Calcium Calcium Adj for Albumin Phosphorus Magnesium Total Bilirubin AST ALT Alkaline Phosphatase Total Creatine Kinase CK-MB (CK-2) CK-MB (CK-2) % Troponin I Total Protein Albumin TSH Cortisol Urine Color Urine Clarity Urine pH Ur Specific [place] Urine Protein Urine Glucose (UA) Urine Ketones Urine Occult Blood Urine Nitrate Urine Bilirubin Urine Urobilinogen Ur Leukocyte Esterase Urine RBC Urine WBC Ur Squamous Epith Cells Urine Bacteria Hyaline Casts Urine Mucus Micro UA Comment Ur Microscopic Review Urine Culture Comments Nasal Screen MRSA (PCR) 09/05/18 09/06/18 09/06/18 15:40 04:20 04:21 WBC RBC Hgb Hct MCV MCH MCHC RDW Plt Count MPV Neut % (Auto) Lymph % (Auto) [place] % (Auto) Eos % (Auto) Baso % (Auto) Neut # (Auto) Lymph # (Auto) [place] # (Auto) Eos # (Auto) Baso # (Auto) WBC Differential Differential Comment Puncture Site Right radial Patient Temperature 98.6 O2 Saturation 96 ABG pH 7.42 ABG pCO2 34 L ABG pO2 104 ABG HCO3 22 ABG O2 Content 16.7 ABG Base Excess -2.0 ABG Methemoglobin 1.4 Reed Test Present Hemoglobin 12.3 Carboxyhemoglobin 0.6 O2 Delivery Device Vent Vent Setting Cpap Inspired O2 35 Critical Value No Sodium Potassium Chloride Carbon Dioxide Anion Gap BUN Creatinine Estimated GFR POC Glucose Random Glucose Lactic Acid Calcium Calcium Adj for Albumin Phosphorus 1.7 L Magnesium Total Bilirubin AST ALT Alkaline Phosphatase Total Creatine Kinase CK-MB (CK-2) CK-MB (CK-2) % Troponin I Less than 0.02 L Total Protein Albumin TSH Cortisol Urine Color Urine Clarity Urine pH Ur Specific [place] Urine Protein Urine Glucose (UA) Urine Ketones Urine Occult Blood Urine Nitrate Urine Bilirubin Urine Urobilinogen Ur Leukocyte Esterase Urine RBC Urine WBC Ur Squamous Epith Cells Urine Bacteria Hyaline Casts Urine Mucus Micro UA Comment Ur Microscopic Review Urine Culture Comments Nasal Screen MRSA (PCR) 09/06/18 04:21 WBC 13.7 H RBC 3.97 L Hgb 12.1 Hct 35.9 MCV 90.6 MCH 30.5 MCHC 33.7 RDW 13.6 Plt Count 107 L MPV 10.9 Neut % (Auto) 85.8 H Lymph % (Auto) 7.4 L [place] % (Auto) 6.4 Eos % (Auto) 0.1 Baso % (Auto) 0.3 Neut # (Auto) 11.8 H Lymph # (Auto) 1.0 [place] # (Auto) 0.9 Eos # (Auto) 0.0 Baso # (Auto) 0.0 WBC Differential . Differential Comment Auto diff final Puncture Site Patient Temperature O2 Saturation ABG pH ABG pCO2 ABG pO2 ABG HCO3 ABG O2 Content ABG Base Excess ABG Methemoglobin Reed Test Hemoglobin Carboxyhemoglobin O2 Delivery Device Vent Setting Inspired O2 Critical Value Sodium Potassium Chloride Carbon Dioxide Anion Gap BUN Creatinine Estimated GFR POC Glucose Random Glucose Lactic Acid Calcium Calcium Adj for Albumin Phosphorus Magnesium Total Bilirubin AST ALT Alkaline Phosphatase Total Creatine Kinase CK-MB (CK-2) CK-MB (CK-2) % Troponin I Total Protein Albumin TSH Cortisol Urine Color Urine Clarity Urine pH Ur Specific [place] Urine Protein Urine Glucose (UA) Urine Ketones Urine Occult Blood Urine Nitrate Urine Bilirubin Urine Urobilinogen Ur Leukocyte Esterase Urine RBC Urine WBC Ur Squamous Epith Cells Urine Bacteria Hyaline Casts Urine Mucus Micro UA Comment Ur Microscopic Review Urine Culture Comments Nasal Screen MRSA (PCR) Result Diagrams: 09/06/18 04:21 09/06/18 11:11 Microbiology: Microbiology 09/04/18 04:00 Aerobic Blood Culture - Preliminary Blood - Peripheral No growth in 2 days Anaerobic Blood Culture - Preliminary No growth in 2 days 09/04/18 03:55 Aerobic Blood Culture - Preliminary Blood - Peripheral No growth in 2 days Anaerobic Blood Culture - Preliminary No growth in 2 days 09/04/18 05:00 Urine Culture - Final Catheterized Urine Escherichia coli 09/04/18 07:00 Gram Stain - Final Sputum - Endotracheal Sputum Culture - Preliminary Moderate growth normal respiratory [place] 09/04/18 08:45 Streptococcus pneumoniae Antigen (M - Final Urine - Catheterized Urine Presumptive negative for streptococcus pneumoniae antigen, suggesting no current or recent infection. Infection due to Streptococcus pneumoniae cannot be ruled out since the antigen present in the sample may be below the detection limit of the test. 09/04/18 08:45 Legionella Antigen - Final Urine - Catheterized Urine Presumptive negative for Legionella pneumophila serogroup 1 antigen in urine, suggesting no recent or recurrent infection. Infection due to Legionella cannot be ruled out since other serogroups and species may cause disease, antigen may not be present in urine in early infection, and the level of antigen present in the urine may be below the detection limit of the test. 09/04/18 08:35 Influenza Types A,B Antigen - Final Nasal Wash Negative for FLU A and B antigen Infection due to influenza A or B cannot be ruled out since the antigen present in the sample may be below the detection limit of the test. Imaging: Head CT 09/04/18 05:26 CONCLUSION: 1. No acute intracranial abnormality. 2. Atrophy and chronic small vessel ischemic change. . Abdomen X-Ray 09/05/18 13:56 CONCLUSION: The injected PEG tube has contrast pooling around the balloon resulting in poor evaluation of location. However, given its location in the right upper quadrant this may be within the antral or pylorus region of the stomach. The contrast within the colon is of uncertain etiology. Given the appearance suggest dedicated fluoroscopy evaluation to confirm position. Chest X-Ray 09/06/18 04:00 CONCLUSION: Stable appearance of the chest. Procedures: 09/04/18-endotracheally intubated by EMS enroute to the hospital Patient/Family Conference Family Conference Location: Bedside, Telephone Issues Discussed: * Palliative care role, purpose, approach * Additional medical, psychosocial, and spiritual history * Patients general health, functional status, and cognitive changes in the months leading up to the current hospitalization * Patient/family understanding of the current medical problems * Patient/family understanding of prognosis * Patients goals of care as best understood from advance directives and/or conversations and/or values * Current medical treatment options and benefits/burdens of those options * Likely scenarios comparing ongoing aggressive care with a transition to comfort measures only * Questions answered to the best of my ability * Introduced hospice philosophy and benefits * Palliative care contact information provided Assessment and Plan - Disease Oriented Problem List (1) Metabolic encephalopathy (2) Hyperlipidemia (3) Hypothyroidism (4) Hemiplegia affecting left nondominant side (5) Hemiparesis affecting nondominant side as late effect of cerebrovascular accident (6) Urinary tract infection - Symptom Scale (1) Dysphagia 0-10 Scale: Unable to quantify Comment: Recent stroke with residual left sided hemiplegia and dysphagia. Pt had PEG tube placed approximately 2 week ago after stroke. (2) Dyspnea 0-10 Scale: Unable to quantify Comment: Probable aspiration. EMS noted tube feeding in pharynx. (3) Altered mental status 0-10 Scale: Unable to quantify (4) Debility 0-10 Scale: Unable to quantify Comment: Progressive. Recent stroke with left sided hemiplegia, and dysphagia. Pertinent Non-Medical Issues: Psychosocial: Patient is originally from [facility]. 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 Patient is . She only had one son who 3 months ago from esophageal cancer. Patient has 2 siblings a sister and a brother. Patient has 3 grandchildren. Spiritual: Patient is a [employer]ism. 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 Her son Derrell Okeefe was her DPOA and her daughter in law is her alternate DPOA Ethical issues impacting care: None identified at this time Important Contacts: Erika OkeefeEexhhb-dpecbrsk-zx-law [phone] cellphone/[phone] Brother- [facility] Sister Nicolle Toledo Prognosis: Mrs. Okeefe is a 73-year-old female with a past medical history of cerebral infarction, chronic dysphagia post intracerebral hemorrhage, PEG tube, encephalopathy, left-sided hemiparesis, hemiplegia to nondominant left side, hyperlipidemia, hypothyroidism, major depressive disorder, schizophrenia and TIA. Patient was brought by EMS to the emergency room on 09/04/18 from a senior care facility for evaluation of lethargy, tachycardia with dyspnea. Patient was intubated in route to [facility]. Clinical course complicated with persistent leukocytosis, dyspnea and urinary tract infection. Given multiple ongoing comorbidities and recent CVA with left-sided hemiparesis and dysphagia, patient remains at high risk for further complications, deterioration and decline. . Code Status: Alternative Code Plan: PLAN: Legal decision maker: Patient is currently intubated on mechanical ventilation. She is currently not able to participate in medical decision making. It is not known whether she will be able to regain this capacity. Patient is . Her only son is . Her parents are . According to [place] statute, have brother Heath Rayo and sister Nicolle Toledo would serve as her Healthcare Proxys if they are willing to do so. Goals: Aggressive. Pending further discussion with patient's healthcare proxy's. Awaiting daughter in law Erika Okeefe who has been taking care of patient for the past 6 months and is also patient`s DPOA not including Healthcare to provide contact information of patient`s siblings. CODE STATUS: Alternate code. Intubation only. SYMPTOMS: * Altered mental status: Hx of schizophrenia. Patient was brought in with chief complaint of altered mental status. * Dysphagia: Patient recently suffered a stroke with complications of dysphagia. Patient is a PEG tube. Patient was noted to have tube feeds around the pharynx. Possible aspiration. * Dyspnea: Possible aspiration. Patient required intubation in the field. Currently on CPAP trials. * Debility: Progressive. Recent history of CVA with right-sided hemiparesis and dysphagia. Patient is currently bedbound and dependent for all his ADLs. Unsure how much patient would be able to participate in physical therapy given his current physical limitations. Palliative care will continue to follow the patient during hospital course as condition evolves, to assist patient/decision-maker with understanding of their medical conditions, weighing benefits/burdens of treatment options, for clarification of goals of treatment. Additionally will assist with any symptoms of palliative concern Appreciation Thank you for the opportunity to participate in the care of Jenn Okeefe. Attestation Attestation: To help prompt me to consider important information that might be impacting today's encounter and assessment, information from prior notes written by myself or my colleagues may have been "brought forward" into today's note. My signature on this note, however, is an attestation that I personally performed the exam, history, and/or decision-making noted today, and, unless otherwise indicated, the interactions with patient, family, and staff as well as the review of records all occurred today. I also attest that the listed assessment and stated plan reflect my best clinical judgment today based on the combination of historical information, prior notes, and today's exam/ interactions. When time spent is documented, it refers only to time spent today by the signer, or if indicated, combined time spent today by collaborating physician/nurse practitioner.
[2018-09-06] MEDS: Levofloxacin 250 mg Premix Inj 250 MG/50 ML PIGGYBACK IV.SIG SCH (14:23)
[2018-09-06] MEDS: Vancomycin Inj 1,250 MG in Sodium Chlor 0.9% Inj 250 ML IV.SIG SCH (14:26)
[2018-09-06] MEDS: Heparin - SQ 10,000 UNITS/ML Vial SQ SCH ×2 (14:41→20:47)
[2018-09-06] MEDS: Sod Chloride 0.9% Inj 1,000 ML IV.CONT SCH (14:58)
[2018-09-06] MEDS: Potassium Chlor 20 mEq Premix 20 MEQ/100 ML PIGGYBACK IV.SIG PRN ×4 (14:59→21:34)
[2018-09-06] MEDS ORDERED: Calcium Gluconate Inj 2 GM in Dextrose 5% in Water Inj 100 ML IV.SIG ONE ×2 (16:30)
--- NOTE | 2018-09-06 16:47 | P.PNCC ---
Subjective Subjective Remarks/Hospital Course: 09/05: Afebrile. Patient now more alert and responsive no sedation given. Movement of right upper and lower extremity. Following commands. Patient currently on CPAP trials. Noted persistent leukocytosis slightly decreased noted gram-negative rods and urine culture Levaquin added to medication regimen. GI consulted for G-tube evaluation plan for resumption of tube feeds upon completion. 09/06: Afebrile. The patient has remained on CPAP trials greater than 24 hours. The patient remains on no sedation. The patient underwent exchange of PEG tube placement with GI today. Plan initiation of tube feeds okay to start per Dr. Velasco. Palliative care team following discussed plan with family. Patient's [id number] continues to request alternate codeintubation on. POA documents received and under evaluation with palliative care. No plan to remove endotracheal tube at this time patient will continue on CPAP trials nutrition will be initiated. Patient denies pain, interactively yes/no questions. Leukocytosis resolving. Objective Vital Signs / I&O: Vital Signs 09/05/18 17:00 09/05/18 18:00 09/05/18 19:00 Temperature 99.1 F 99.1 F 99.3 F Pulse Rate 52 L 51 L 51 L Respiratory Rate 15 15 17 Blood Pressure 136/65 144/65 H 145/67 H Pulse Oximetry 99 100 100 09/05/18 19:57 09/05/18 20:00 09/05/18 21:00 Temperature 99.3 F 99.3 F Pulse Rate 52 L 52 L Respiratory Rate 17 16 15 Blood Pressure 144/65 H 144/67 H Pulse Oximetry 99 99 98 09/05/18 22:00 09/05/18 23:00 09/05/18 23:59 Temperature 99.3 F 99.5 F Pulse Rate 50 L 52 L Respiratory Rate 15 16 15 Blood Pressure 135/63 150/70 H Pulse Oximetry 99 99 99 09/06/18 00:00 09/06/18 01:00 09/06/18 02:00 Temperature 99.5 F 99.5 F 99.3 F Pulse Rate 53 L 52 L 51 L Respiratory Rate 16 16 16 Blood Pressure 153/69 H 152/70 H 151/69 H Pulse Oximetry 99 99 99 09/06/18 02:37 09/06/18 03:00 09/06/18 04:00 Temperature 99.1 F 99.0 F Pulse Rate 55 L 53 L Respiratory Rate 14 16 15 Blood Pressure 145/68 H 154/72 H Pulse Oximetry 97 99 99 09/06/18 04:57 09/06/18 05:00 09/06/18 06:00 Temperature 99.0 F 99.0 F Pulse Rate 50 L 48 L Respiratory Rate 13 15 15 Blood Pressure 160/74 H 163/77 H Pulse Oximetry 100 99 99 09/06/18 08:00 09/06/18 08:13 09/06/18 12:52 Temperature 98.2 F Pulse Rate 49 L Respiratory Rate 16 15 10 L Blood Pressure 147/80 H Pulse Oximetry 100 100 100 09/06/18 15:49 Temperature Pulse Rate Respiratory Rate 14 Blood Pressure Pulse Oximetry 100 Intake & Output 09/05/18 09/06/18 09/06/18 18:59 06:59 18:59 Intake Total 1900 / 1900 1612.5 / 1612.5 1100 / 1100 Output Total 650 / 650 500 / 500 Balance 1250 / 1250 1112.5 / 1112.5 1100 / 1100 Weight 69.2 kg Intake: IV 1100 / 1100 1412.5 / 1412.5 1100 / 1100 NS Inj 1,000 ML @ 75 mls/hr IV. 1000 / 1000 1000 / 1000 1000 / 1000 CONT .[id number] [facility] Rx#:[id number] Maxipime Inj 2,000 MG In NS Inj 100 / 100 100 / 100 100 / 100 100 ML @ 200 mls/hr IV.SIG Q12H [facility] Rx#:[id number] Levaquin 250 mg Premix Inj 250 50 / 50 mg In 50 ml @ 50 mls/hr IV.SIG Q24H [facility] Rx#:[id number] Vancomycin Inj 1,250 MG In NS 262.5 / 262.5 Inj 250 ML @ 250 mls/hr IV.SIG Q18H [facility] Rx#:[id number] Water Bolus Amount 800 / 800 200 / 200 Output: Urine Amount (Catheter) 650 / 650 500 / 500 Indwelling Urethral Catheter 650 / 650 500 / 500 Other: Date of Last Bowel Movement 09/06/18 09/06/18 # Bowel Movements 0 1 # Incontinent Bowel Movements 1 Result Diagrams: 09/06/18 04:21 09/06/18 11:11 Imaging: Laboratory Results WBC 13.7 th/mm3 (4.0-11.0) H 09/06/18 04:21 RBC 3.97 mil/mm3 (4.00-5.30) L 09/06/18 04:21 Hgb 12.1 gm/dL (11.6-15.3) 09/06/18 04:21 Hct 35.9 % (35.0-46.0) 09/06/18 04:21 MCV 90.6 fL (80.0-100.0) 09/06/18 04:21 MCH 30.5 pg (27.0-34.0) 09/06/18 04:21 MCHC 33.7 % (32.0-36.0) 09/06/18 04:21 RDW 13.6 % (11.6-17.2) 09/06/18 04:21 Plt Count 107 th/mm3 (150-450) L 09/06/18 04:21 MPV 10.9 fL (7.0-11.0) 09/06/18 04:21 Neut % (Auto) 85.8 % (16.0-70.0) H 09/06/18 04:21 Lymph % (Auto) 7.4 % (9.0-44.0) L 09/06/18 04:21 [place] % (Auto) 6.4 % (0.0-8.0) 09/06/18 04:21 Eos % (Auto) 0.1 % (0.0-4.0) 09/06/18 04:21 Baso % (Auto) 0.3 % (0.0-2.0) 09/06/18 04:21 Neut # (Auto) 11.8 th/mm3 (1.8-7.7) H 09/06/18 04:21 Lymph # (Auto) 1.0 th/mm3 (1.0-4.8) 09/06/18 04:21 [place] # (Auto) 0.9 th/mm3 (0.0-0.9) 09/06/18 04:21 Eos # (Auto) 0.0 th/mm3 (0.0-0.4) 09/06/18 04:21 Baso # (Auto) 0.0 th/mm3 (0.0-0.2) 09/06/18 04:21 WBC Differential . 09/06/18 04:21 Differential Comment Auto diff final 09/06/18 04:21 Puncture Site Right radial 09/06/18 04:20 Patient Temperature 98.6 09/06/18 04:20 O2 Saturation 96 % (90-100) 09/06/18 04:20 ABG pH 7.42 (7.380-7.420) 09/06/18 04:20 ABG pCO2 34 mmHg (38-42) L 09/06/18 04:20 ABG pO2 104 mmHG (61-120) 09/06/18 04:20 ABG HCO3 22 mmol/L (22-26) 09/06/18 04:20 ABG O2 Content 16.7 Vol % (12.0-20.0) 09/06/18 04:20 ABG Base Excess -2.0 mmol/L (-2-2) 09/06/18 04:20 ABG Methemoglobin 1.4 % (0-2) 09/06/18 04:20 Reed Test Present 09/06/18 04:20 Hemoglobin 12.3 G/DL (12.0-16.0) 09/06/18 04:20 Carboxyhemoglobin 0.6 % (0-4) 09/06/18 04:20 O2 Delivery Device Vent 09/06/18 04:20 Vent Setting Cpap 09/06/18 04:20 Inspired O2 35 % 09/06/18 04:20 Critical Value No 09/06/18 04:20 Sodium 148 meq/L (136-145) H 09/06/18 11:11 Potassium 3.0 meq/L (3.5-5.1) L 09/06/18 11:11 Chloride 119 meq/L (98-107) H 09/06/18 11:11 Carbon Dioxide 22.2 meq/L (21.0-32.0) 09/06/18 11:11 Anion Gap 7 meq/L (5-15) 09/06/18 11:11 BUN 18 mg/dL (7-18) 09/06/18 11:11 Creatinine 0.37 mg/dL (0.50-1.00) L 09/06/18 11:11 Estimated GFR Greater than 89 mL/min (>89) 09/06/18 11:11 POC Glucose 111 mg/dl (68-110) H 09/05/18 09:10 Random Glucose 80 mg/dL (74-106) 09/06/18 11:11 Lactic Acid 0.8 mmol/L (0.4-2.0) 09/05/18 15:40 Calcium 7.7 mg/dL (8.5-10.1) L 09/06/18 11:11 Calcium Adj for Albumin 8.3 mg/dL (8.5-10.1) L 09/04/18 03:55 Phosphorus 1.7 mg/dL (2.5-4.9) L 09/06/18 04:21 Magnesium 2.2 mg/dL (1.5-2.5) 09/06/18 11:11 Total Bilirubin 0.6 mg/dL (0.2-1.0) 09/05/18 03:59 AST 14 U/L (15-37) L 09/05/18 03:59 ALT 11 U/L (10-53) 09/05/18 03:59 Alkaline Phosphatase 50 U/L (45-117) 09/05/18 03:59 Total Creatine Kinase 215 U/L (26-192) H 09/04/18 03:55 CK-MB (CK-2) 1.3 ng/mL (0.5-3.6) 09/04/18 03:55 CK-MB (CK-2) % 0.6 % (0.0-4.0) 09/04/18 03:55 Troponin I Less than 0.02 ng/mL (0.02-0.05) L 09/05/18 15:40 Total Protein 5.5 g/dL (6.4-8.2) L 09/05/18 03:59 Albumin 2.2 g/dL (3.4-5.0) L 09/05/18 03:59 TSH 5.860 uIU/mL (0.358-3.740) H 09/04/18 10:07 Cortisol 41.7 mcg/dL 09/04/18 10:07 Urine Color Yellow (Yellw/Straw) 09/04/18 05:00 Urine Clarity Hazy (Clear) H 09/04/18 05:00 Urine pH 5.0 (5.0-8.5) 09/04/18 05:00 Ur Specific [place] 1.027 (1.002-1.035) 09/04/18 05:00 Urine Protein 30 mg/dL (Neg-Trace) H 09/04/18 05:00 Urine Glucose (UA) Negative mg/dL (Negative) 09/04/18 05:00 Urine Ketones Negative mg/dL (Negative) 09/04/18 05:00 Urine Occult Blood Negative (Negative) 09/04/18 05:00 Urine Nitrate Positive (Negative) H 09/04/18 05:00 Urine Bilirubin Negative (Negative) 09/04/18 05:00 Urine Urobilinogen 4 or greater mg/dL (Less than 2) 09/04/18 05:00 Ur Leukocyte Esterase Small (Negative) H 09/04/18 05:00 Urine RBC 1 /hpf (0-3) 09/04/18 05:00 Urine WBC 11 /hpf (0-5) H 09/04/18 05:00 Ur Squamous Epith Cells <1 /hpf (0-5) 09/04/18 05:00 Urine Bacteria Moderate /hpf (None) H 09/04/18 05:00 Hyaline Casts 6 /lpf (0-3) 09/04/18 05:00 Urine Mucus Many /lpf (Occasional) H 09/04/18 05:00 Micro UA Comment Cath-culture ind 09/04/18 05:00 Ur Microscopic Review Not Reportable 09/04/18 05:00 Urine Culture Comments Cath-cult indicated 09/04/18 05:00 Nasal Screen MRSA (PCR) Not detected (Negative) 09/04/18 06:45 Vancomycin Trough 7.2 mcg/mL (5.0-10.0) 09/06/18 11:[address] 09/04/18 05:26 CONCLUSION: 1. No acute intracranial abnormality. 2. Atrophy and chronic small vessel ischemic change. . Abdomen X-Ray 09/05/18 13:56 CONCLUSION: The injected PEG tube has contrast pooling around the balloon resulting in poor evaluation of location. However, given its location in the right upper quadrant this may be within the antral or pylorus region of the stomach. The contrast within the colon is of uncertain etiology. Given the appearance suggest dedicated fluoroscopy evaluation to confirm position. Chest X-Ray 09/06/18 04:00 CONCLUSION: Stable appearance of the chest. Objective Remarks: GENERAL: Well-nourished chronically ill-appearing elderly female. Nodding head to yes and no questions SKIN: Warm and dry. HEAD: Atraumatic. Normocephalic. EYES: Pupils equal and round. No scleral icterus. No injection or drainage. ENT: No nasal bleeding or discharge. Mucous membranes pink and moist. NECK: Trachea midline. No JVD. CARDIOVASCULAR: Normal rate, regular rhythm. RESPIRATORY: No accessory muscle use. Clear to auscultation. Breath sounds equal bilaterally. GASTROINTESTINAL: Abdomen soft, non-tender, nondistended. No guarding. MUSCULOSKELETAL: Extremities without clubbing, cyanosis, or edema. No obvious deformities. NEUROLOGICAL: Awake and alert. RASS 0. 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 Code(s): I69.359 - Hemiplegia and hemiparesis following cerebral infarction affecting unspecified side Status: Acute (5) Hypothyroidism Code(s): E03.9 - Hypothyroidism, unspecified Status: Acute - Assessment and Plan Plan: This is a 73-year-old female with a history of CVA, with left-sided hemiparesis and hemiplegia now presenting with aspiration with required intubation for airway protection. Currently septic with most likely metabolic encephalopathy. The patient is critically ill. The patient has a full CODE STATUS. 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 Left hemiparesis Left hemiplegia History of schizophrenia Neuro checks per ICU protocol Avoid sedative type agents for clear assessment of neuro status Tylenol 650 mg every 6 hours as needed, for pain and/or temperature greater than 100.5 Currently not on any sedatives to maintain vent ventilator synchrony Currently GCS 11T Respiratory: Probable aspiration Acute hypoxemic respiratory failure Maintain O2 saturation greater than 92% Ventilator bundle Chemical vent settings 40%, tidal volume 450 rate of 16 PEEP of 5 12/6 CPAP trials initiatepatient to continue on CPAP trial ABG 7.37/30 8/20/-3.7 Follow-up chest x-ray in am Bronchodilator every 4 hours as needed Cardiovascular: Hyperlipidemia Elevated troponin Maintain map greater than 65, she may require vasopressor support Monitor serial troponins most likely secondary to demand ischemia-now resolved troponin 0.02 Continue aspirin 81 mg daily Renal: Davis catheter -- Strict I/Os FEN/GI: Electrolyte abnormalities Zofran for nausea Famotidine for GI prophylaxis Maintain OGT tube currently clamped Continue free water flushes 200 cc Continue gentle IV hydration normal saline at 75 cc/hr GI consulted for evaluation PEG tube-09/06 PEG tube replaced at bedside Resume tube feeds Heme/ID: Urosepsis Leukocytosis Healthcare associated pneumonia versus aspiration Initial lactate 2.3, follow serial lactate levels Initiate Zosyn and vancomycin(day 3), Levaquin day11/05 09/04 Blood culture-NGTD 09/06 Urine culture-E. coli 09/04 Influenza A/B , pneumococcal, Legionella antigens-negative Monitor CBC-WBC count 16 Endocrine: Hypothyroidism Continue levothyroxine home medication 50 mcgs/day 09/04 TSH level elevated 5.8-recheck in 4-6 weeks -- SSI Prophylaxis: GI Prophylaxis Famotidine DVT Prophylaxis -- SCDs Heparin 5000 subcu twice daily Lines: Of IVs providing adequate access. Central line if indicated Palliative care was consulted yesterday extensive discussion with POA patient's [id number] the patient was made alternate CODE STATUS. The patient's CVA occurred approximately 2 weeks ago POA states patient was a very active individual and discussions are ongoing if patient meets extubation criteria the patient will be reintubated. Await palliative care recommendations after discussion with POA and validation POA documentation. Dispo: Level 3 follow-up Code Status: Alternative Discussed Condition With: Palliative care member Yael, and [employer] at bedside
--- NOTE | 2018-09-06 17:52 | XR ---
EXAM DATE: 09/06/2018 5:48 PM EST AGE/SEX: 73 years / Female INDICATIONS: Respiratory disease. CLINICAL DATA: This is the patient's subsequent encounter. Patient reports that signs and symptoms h ave been present for 1 day and indicates a pain score of Nonresponsive. MEDICAL/SURGICAL HISTORY: . Sepsis. AMS. Pneumonia. None. COMPARISON: [facility], CHEST 1V SINGLE AP, 09/06/2018. . FINDINGS: ET tube is in good position. The lungs are under aerated with moderate bibasilar parenchymal changes evident worse on the right than the left. Nasogastric tube has been removed. CONCLUSION: Interval improvement with less bibasilar parenchymal changes and interstitial edema. Electronically signed by: Bony Menjivar MD 09/06/2018 5:50 PM EST
[2018-09-07] MEDS: Oral Hygiene Kit OROPHARYNG SCH ×5 (01:12→23:32)
[2018-09-07] MEDS: Vancomycin Inj 1,250 MG in Sodium Chlor 0.9% Inj 250 ML IV.SIG SCH (03:11)
[2018-09-07] MEDS: Chlorhexidine Gluconate 2% 1 Pack (2 Cloths) TOPICAL SCH (03:12)
[2018-09-07 04:03] LABS: Baso % (Auto) 0.3 % (0.0-2.0); Eos % (Auto) 0.1 % (0.0-4.0); Hematocrit 35.7 % (35.0-46.0); Hemoglobin 12.1 gm/dL (11.6-15.3); Lymph % (Auto) 8.7 % (9.0-44.0); Mean Corpuscular Hemoglobin 30.5 pg (27.0-34.0); Mean Corpuscular Volume 89.5 fL (80.0-100.0); Mean Platelet Volume 10.1 fL (7.0-11.0); Mono # (Auto) 0.7 th/mm3 (0.0-0.9); Mono % (Auto) 6.4 % (0.0-8.0); Neut # (Auto) 9.9 th/mm3 (1.8-7.7); Neut % (Auto) 84.5 % (16.0-70.0); Platelet Count 113 th/mm3 (150-450); Red Blood Count 3.99 mil/mm3 (4.00-5.30); Red Cell Distribution Width 13.6 % (11.6-17.2); White Blood Count 11.7 th/mm3 (4.0-11.0)
[2018-09-07] MEDS: Levothyroxine 50 MCG Tablet PO SCH (05:12)
[2018-09-07] MEDS: Chlorhexidine 0.12% Oral Kit 15 ML UDC OROPHARYNG SCH ×2 (08:30→19:56)
[2018-09-07] MEDS: Famotidine PF Inj 20 MG/2 ML Vial IV.PUSH SCH ×2 (08:31→20:09)
[2018-09-07] MEDS: Heparin - SQ 10,000 UNITS/ML Vial SQ SCH ×2 (08:32→20:10)
[2018-09-07] MEDS: Senna/Docusate Sodium 8.6/50 MG Tablet PO SCH ×2 (08:34→20:11)
[2018-09-07] MEDS: Miconazole 2% Cream 15 GM Tube TOPICAL SCH ×2 (08:34→20:10)
--- NOTE | 2018-09-07 09:06 | P.PNCC ---
Subjective Subjective Remarks/Hospital Course: 09/05: Afebrile. Patient now more alert and responsive no sedation given. Movement of right upper and lower extremity. Following commands. Patient currently on CPAP trials. Noted persistent leukocytosis slightly decreased noted gram-negative rods and urine culture Levaquin added to medication regimen. GI consulted for G-tube evaluation plan for resumption of tube feeds upon completion. 09/06: Afebrile. The patient has remained on CPAP trials greater than 24 hours. The patient remains on no sedation. The patient underwent exchange of PEG tube placement with GI today. Plan initiation of tube feeds okay to start per Dr. Velasco. Palliative care team following discussed plan with family. Patient's [id number] continues to request alternate codeintubation on. POA documents received and under evaluation with palliative care. No plan to remove endotracheal tube at this time patient will continue on CPAP trials nutrition will be initiated. Patient denies pain, interactively yes/no questions. Leukocytosis resolving. 09/07: Remains intubated off all sedation tolerating CPAP. Chest x-ray from yesterday shows chronically elevated right hemidiaphragm and atelectasis. Follows commands on the right side Objective Vital Signs / I&O: Vital Signs 09/06/18 12:00 09/06/18 12:52 09/06/18 15:49 Temperature 98.8 F Pulse Rate 45 L Respiratory Rate 23 10 L 14 Blood Pressure 172/77 H Pulse Oximetry 100 100 09/06/18 16:00 09/06/18 20:00 09/06/18 20:22 Temperature 98.8 F 98.6 F Pulse Rate 44 L 44 L Respiratory Rate 22 17 12 Blood Pressure 177/84 H 175/86 H Pulse Oximetry 100 100 09/06/18 23:45 09/07/18 00:00 09/07/18 02:14 Temperature 99.0 F Pulse Rate 48 L Respiratory Rate 11 L 12 11 L Blood Pressure 162/74 H Pulse Oximetry 100 100 100 09/07/18 04:00 09/07/18 04:11 Temperature 99.5 F Pulse Rate 43 L Respiratory Rate 11 L 13 Blood Pressure 150/70 H Pulse Oximetry 100 100 Intake & Output 09/06/18 09/07/18 09/07/18 18:59 06:59 18:59 Intake Total 1762.5 / 1762.5 1032.5 / 1032.5 Output Total 1000 / 1000 930 / 930 Balance 762.5 / 762.5 102.5 / 102.5 Weight 71.2 kg Intake: IV 1462.5 / 1462.5 832.5 / 832.5 NS Inj 1,000 ML @ 75 mls/hr IV. 1000 / 1000 CONT .[id number] [facility] Rx#:[id number] Calcium Gluconate Inj 2 GM In 120 / 120 D5W Inj 100 ML @ 120 mls/hr IV. SIG ONCE ONE Rx#:[id number] Maxipime Inj 2,000 MG In NS Inj 100 / 100 100 / 100 100 ML @ 200 mls/hr IV.SIG Q12H [facility] Rx#:[id number] Levaquin 250 mg Premix Inj 250 50 / 50 mg In 50 ml @ 50 mls/hr IV.SIG Q24H [facility] Rx#:[id number] KCl 20 mEq Premix Inj 20 meq In 100 / 100 300 / 300 100 ml @ 50 mls/hr IV.SIG Q2H [facility] Rx#:[id number] Vancomycin Inj 1,250 MG In NS 262.5 / 262.5 262.5 / 262.5 Inj 250 ML @ 250 mls/hr IV.SIG Q12H [facility] Rx#:[id number] Water Bolus Amount 200 / 200 Anesthesia Amount 300 / 300 Output: Urine Amount (Catheter) 1000 / 1000 930 / 930 Indwelling Urethral Catheter 1000 / 1000 930 / 930 Other: Date of Last Bowel Movement 09/06/18 09/06/18 # Bowel Movements 1 # Incontinent Bowel Movements 1 Result Diagrams: 09/07/18 03:41 09/06/18 11:11 Objective Remarks: GENERAL: Well-nourished chronically ill-appearing elderly female. SKIN: Warm and dry. HEAD: Atraumatic. Normocephalic. EYES: Pupils equal and round. No scleral icterus. No injection or drainage. ENT: No nasal bleeding or discharge. Mucous membranes pink and moist. NECK: Trachea midline. No JVD. CARDIOVASCULAR: Normal rate, regular rhythm. RESPIRATORY: No accessory muscle use. Clear to auscultation. Breath sounds equal bilaterally. GASTROINTESTINAL: Abdomen soft, non-tender, nondistended. No guarding. MUSCULOSKELETAL: Extremities without clubbing, cyanosis, or edema. No obvious deformities. NEUROLOGICAL: Awake and alert. RASS 0. 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 Code(s): I69.359 - Hemiplegia and hemiparesis following cerebral infarction affecting unspecified side Status: Acute (5) Hypothyroidism Code(s): E03.9 - Hypothyroidism, unspecified Status: Acute - Assessment and Plan Plan: This is a 73-year-old female with a history of CVA, with left-sided hemiparesis and hemiplegia now presenting with aspiration with required intubation for airway protection. Currently septic with most likely metabolic encephalopathy. The patient is critically ill. The patient has a full CODE STATUS. 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 Good parameters and ABG for possible extubation Bronchodilator every 4 hours as needed Cardiovascular: Hyperlipidemia Elevated troponin Maintain map greater than 65, she may require vasopressor support Monitor serial troponin most likely secondary to demand ischemia-now resolved troponin 0.02 Continue aspirin 81 mg daily Renal: Davis catheter - Strict I/Os FEN/GI: Electrolyte abnormalities Zofran for nausea Famotidine for GI prophylaxis Maintain OGT tube currently clamped Continue free water flushes 200 cc Continue gentle IV hydration normal saline at 75 cc/hr-DC GI consulted for evaluation PEG tube-09/06 PEG tube replaced at bedside Heme/ID: Urosepsis Leukocytosis Healthcare associated pneumonia versus aspiration Initial lactate 2.3, follow serial lactate levels Zosyn and vancomycin(day 4), Levaquin day 3/5. Discontinue vancomycin today 09/04 Blood culture-NGTD 09/06 Urine culture-E. coli 09/04 Influenza A/B , pneumococcal, Legionella antigens-negative Monitor CBC-WBC count 16 Endocrine: Hypothyroidism Continue levothyroxine home medication 50 mcgs/day 09/04 TSH level elevated 5.8-recheck in 4-6 weeks -- SSI Prophylaxis: GI Prophylaxis Famotidine DVT Prophylaxis -- SCDs Heparin 5000 subcu Lines: Of IVs providing adequate access. Central line if indicated Palliative care was consulted yesterday extensive discussion with POA patient's [id number] the patient was made alternate CODE STATUS. The patient's CVA occurred approximately 2 weeks ago POA states patient was a very active individual and discussions are ongoing if patient meets extubation criteria the patient will be reintubated. Await palliative care recommendations after discussion with POA and validation POA documentation. Dispo: Level 2 follow-up
[2018-09-07 09:52] LABS: ABG Base Excess -0.2 mmol/L (-2-2); ABG PCO2 33 mmHg (38-42); ABG PO2 86 mmHG (61-120)
[2018-09-07 10:44] LABS: Anion Gap 8 meq/L (5-15); Blood Urea Nitrogen 12 mg/dL (7-18); Carbon Dioxide 23.8 meq/L (21.0-32.0); Chloride 111 meq/L (98-107); Glomerular Filtration Rate Greater Than 89 mL/min (>89); Glucose,Random 101 mg/dL (74-106); Magnesium 1.9 mg/dL (1.5-2.5); Phosphorus 2.1 mg/dL (2.5-4.9); Potassium 3.3 meq/L (3.5-5.1); Sodium 143 meq/L (136-145)
--- NOTE | 2018-09-07 10:55 | P.PNGI ---
Subjective Interval history: Eyes open, very weak and minimal response does track No obvious nausea or vomiting abdomen soft Status post PEG tube placement day 1 <Michell Garcia M - Last Filed: 09/07/18 10:51> Physical Exam Vital signs: Vital Signs 09/06/18 12:00 09/06/18 12:52 09/06/18 15:49 Temperature 98.8 F Pulse Rate 45 L Respiratory Rate 23 10 L 14 Blood Pressure 172/77 H Pulse Oximetry 100 100 09/06/18 16:00 09/06/18 20:00 09/06/18 20:22 Temperature 98.8 F 98.6 F Pulse Rate 44 L 44 L Respiratory Rate 22 17 12 Blood Pressure 177/84 H 175/86 H Pulse Oximetry 100 100 09/06/18 23:45 09/07/18 00:00 09/07/18 02:14 Temperature 99.0 F Pulse Rate 48 L Respiratory Rate 11 L 12 11 L Blood Pressure 162/74 H Pulse Oximetry 100 100 100 09/07/18 04:00 09/07/18 04:11 09/07/18 08:00 Temperature 99.5 F 100 F H Pulse Rate 43 L 47 L Respiratory Rate 11 L 13 16 Blood Pressure 150/70 H 157/72 H Pulse Oximetry 100 100 100 09/07/18 08:57 Temperature Pulse Rate Respiratory Rate 19 Blood Pressure Pulse Oximetry 100 Intake & Output 09/06/18 09/07/18 09/07/18 18:59 06:59 18:59 Intake Total 1762.5 / 1762.5 1032.5 / 1032.5 Output Total 1000 / 1000 930 / 930 Balance 762.5 / 762.5 102.5 / 102.5 Weight 71.2 kg Intake: IV 1462.5 / 1462.5 832.5 / 832.5 NS Inj 1,000 ML @ 75 mls/hr IV. 1000 / 1000 CONT .[id number] [facility] Rx#:[id number] Calcium Gluconate Inj 2 GM In 120 / 120 D5W Inj 100 ML @ 120 mls/hr IV. SIG ONCE ONE Rx#:[id number] Maxipime Inj 2,000 MG In NS Inj 100 / 100 100 / 100 100 ML @ 200 mls/hr IV.SIG Q12H [facility] Rx#:[id number] Levaquin 250 mg Premix Inj 250 50 / 50 mg In 50 ml @ 50 mls/hr IV.SIG Q24H [facility] Rx#:[id number] KCl 20 mEq Premix Inj 20 meq In 100 / 100 300 / 300 100 ml @ 50 mls/hr IV.SIG Q2H [facility] Rx#:[id number] Vancomycin Inj 1,250 MG In NS 262.5 / 262.5 262.5 / 262.5 Inj 250 ML @ 250 mls/hr IV.SIG Q12H [facility] Rx#:[id number] Water Bolus Amount 200 / 200 Anesthesia Amount 300 / 300 Output: Urine Amount (Catheter) 1000 / 1000 930 / 930 Indwelling Urethral Catheter 1000 / 1000 930 / 930 Other: Date of Last Bowel Movement 09/06/18 09/06/18 09/06/18 # Bowel Movements 1 # Incontinent Bowel Movements 1 - Constitutional no acute distress, morbidly obese, disheveled, cooperative - Routine HEENT Exam Head: Present: normocephalic ENT: Present: mucous membranes moist - Routine Respiratory Exam Present: decreased breath sounds - Routine Cardiovascular Exam Present: S1, S2 - Routine Abdominal Exam Present: soft (Round, obese, soft bowel sounds, gastric tube with Jevity feedings initiated) - Urinary Catheter Management Indwelling Urethral Catheter Cath placed during this visit: yes Reason for continuing: Hourly intake/output Insertion date: 09/04/18 Insertion time: 05:08 <Michell Garcia - Last Filed: 09/07/18 10:51> Vital signs: Vital Signs 09/06/18 20:00 09/06/18 20:22 09/06/18 23:45 Temperature 98.6 F Pulse Rate 44 L Respiratory Rate 17 12 11 L Blood Pressure 175/86 H Pulse Oximetry 100 100 100 09/07/18 00:00 09/07/18 02:14 09/07/18 04:00 Temperature 99.0 F 99.5 F Pulse Rate 48 L 43 L Respiratory Rate 12 11 L 11 L Blood Pressure 162/74 H 150/70 H Pulse Oximetry 100 100 100 09/07/18 04:11 09/07/18 08:00 09/07/18 08:57 Temperature 100 F H Pulse Rate 47 L Respiratory Rate 13 16 19 Blood Pressure 157/72 H Pulse Oximetry 100 100 100 09/07/18 12:00 09/07/18 16:00 Temperature 100 F H 100.4 F H Pulse Rate 55 L 50 L Respiratory Rate 31 H 26 H Blood Pressure 129/61 156/70 H Pulse Oximetry Intake & Output 09/07/18 09/07/18 09/08/18 06:59 18:59 06:59 Intake Total 1032.5 / 1032.5 210 / 210 Output Total 930 / 930 1200 / 1200 Balance 102.5 / 102.5 -990 / -990 Weight 71.2 kg Intake: IV 832.5 / 832.5 150 / 150 Calcium Gluconate Inj 2 GM In 120 / 120 D5W Inj 100 ML @ 120 mls/hr IV. SIG ONCE ONE Rx#:[id number] Maxipime Inj 2,000 MG In NS Inj 100 / 100 100 / 100 100 ML @ 200 mls/hr IV.SIG Q12H [facility] Rx#:[id number] Levaquin 250 mg Premix Inj 250 50 / 50 50 / 50 mg In 50 ml @ 50 mls/hr IV.SIG Q24H [facility] Rx#:[id number] KCl 20 mEq Premix Inj 20 meq In 300 / 300 100 ml @ 50 mls/hr IV.SIG Q2H [facility] Rx#:[id number] Vancomycin Inj 1,250 MG In NS 262.5 / 262.5 Inj 250 ML @ 250 mls/hr IV.SIG Q12H [facility] Rx#:[id number] Tube Feeding 60 / 60 Water Bolus Amount 200 / 200 Output: Urine Amount (Catheter) 930 / 930 1200 / 1200 Indwelling Urethral Catheter 930 / 930 1200 / 1200 Other: Date of Last Bowel Movement 09/06/18 09/06/18 # Bowel Movements 1 # Incontinent Bowel Movements 1 - Urinary Catheter Management Indwelling Urethral Catheter Cath placed during this visit: no <Shahrzad Amaya - Last Filed: 09/07/18 19:13> Results - Labs CBC & Chem 7: 09/07/18 03:41 09/07/18 09:25 Laboratory Results - last 24 hr 09/06/18 09/07/18 09/07/18 11:11 03:41 09:25 WBC 11.7 H RBC 3.99 L Hgb 12.1 Hct 35.7 MCV 89.5 MCH 30.5 MCHC 34.0 RDW 13.6 Plt Count 113 L MPV 10.1 Neut % (Auto) 84.5 H Lymph % (Auto) 8.7 L [place] % (Auto) 6.4 Eos % (Auto) 0.1 Baso % (Auto) 0.3 Neut # (Auto) 9.9 H Lymph # (Auto) 1.0 [place] # (Auto) 0.7 Eos # (Auto) 0.0 Baso # (Auto) 0.0 WBC Differential . Differential Comment Auto diff final Puncture Site Patient Temperature O2 Saturation ABG pH ABG pCO2 ABG pO2 ABG HCO3 ABG O2 Content ABG Base Excess ABG Methemoglobin Reed Test Hemoglobin Carboxyhemoglobin O2 Delivery Device Vent Setting Inspired O2 Critical Value Sodium 148 H 143 Potassium 3.0 L 3.3 L Chloride 119 H 111 H D Carbon Dioxide 22.2 23.8 Anion Gap 7 8 BUN 18 12 Creatinine 0.37 L 0.40 L Estimated GFR Greater than 89 Greater than 89 Random Glucose 80 101 Calcium 7.7 L 8.0 L Phosphorus 2.1 L Magnesium 2.2 1.9 Vancomycin Trough 7.2 09/07/18 09/07/18 09:25 09:39 WBC RBC Hgb Hct MCV MCH MCHC RDW Plt Count MPV Neut % (Auto) Lymph % (Auto) [place] % (Auto) Eos % (Auto) Baso % (Auto) Neut # (Auto) Lymph # (Auto) [place] # (Auto) Eos # (Auto) Baso # (Auto) WBC Differential Differential Comment Puncture Site Right radial Patient Temperature 98.6 O2 Saturation 95 ABG pH 7.46 H ABG pCO2 33 L ABG pO2 86 ABG HCO3 23 ABG O2 Content 17.4 ABG Base Excess -0.2 ABG Methemoglobin 1.5 Reed Test Present Hemoglobin 13.1 Carboxyhemoglobin 0.7 O2 Delivery Device Ventilator Vent Setting Cpap 5/+5/35% Inspired O2 35 Critical Value No Sodium Potassium 3.3 L Chloride Carbon Dioxide Anion Gap BUN Creatinine Estimated GFR Random Glucose Calcium Phosphorus Magnesium Vancomycin Trough Microbiology 09/04/18 04:00 Blood - Peripheral Aerobic Blood Culture - Preliminary No growth in 2 days 09/04/18 04:00 Blood - Peripheral Anaerobic Blood Culture - Preliminary No growth in 2 days 09/04/18 03:55 Blood - Peripheral Aerobic Blood Culture - Preliminary No growth in 2 days 09/04/18 03:55 Blood - Peripheral Anaerobic Blood Culture - Preliminary No growth in 2 days 09/04/18 05:00 Catheterized Urine Urine Culture - Final Escherichia coli 09/04/18 07:00 Sputum - Endotracheal Gram Stain - Final 09/04/18 07:00 Sputum - Endotracheal Sputum Culture - Preliminary Moderate growth normal respiratory kingsley - Imaging Impressions Chest X-Ray 09/06/18 00:00 CONCLUSION: Interval improvement with less bibasilar parenchymal changes and interstitial edema. <Michell Garcia - Last Filed: 09/07/18 10:51> - Labs CBC & Chem 7: 09/07/18 03:41 09/07/18 09:25 Laboratory Results - last 24 hr 09/07/18 09/07/18 09/07/18 03:41 09:25 09:25 WBC 11.7 H RBC 3.99 L Hgb 12.1 Hct 35.7 MCV 89.5 MCH 30.5 MCHC 34.0 RDW 13.6 Plt Count 113 L MPV 10.1 Neut % (Auto) 84.5 H Lymph % (Auto) 8.7 L [place] % (Auto) 6.4 Eos % (Auto) 0.1 Baso % (Auto) 0.3 Neut # (Auto) 9.9 H Lymph # (Auto) 1.0 [place] # (Auto) 0.7 Eos # (Auto) 0.0 Baso # (Auto) 0.0 WBC Differential . Differential Comment Auto diff final Puncture Site Patient Temperature O2 Saturation ABG pH ABG pCO2 ABG pO2 ABG HCO3 ABG O2 Content ABG Base Excess ABG Methemoglobin Reed Test Hemoglobin Carboxyhemoglobin O2 Delivery Device Vent Setting Inspired O2 Critical Value Sodium 143 Potassium 3.3 L 3.3 L Chloride 111 H D Carbon Dioxide 23.8 Anion Gap 8 BUN 12 Creatinine 0.40 L Estimated GFR Greater than 89 POC Glucose Random Glucose 101 Calcium 8.0 L Phosphorus 2.1 L Magnesium 1.9 09/07/18 09/07/18 09:39 10:52 WBC RBC Hgb Hct MCV MCH MCHC RDW Plt Count MPV Neut % (Auto) Lymph % (Auto) [place] % (Auto) Eos % (Auto) Baso % (Auto) Neut # (Auto) Lymph # (Auto) [place] # (Auto) Eos # (Auto) Baso # (Auto) WBC Differential Differential Comment Puncture Site Right radial Patient Temperature 98.6 O2 Saturation 95 ABG pH 7.46 H ABG pCO2 33 L ABG pO2 86 ABG HCO3 23 ABG O2 Content 17.4 ABG Base Excess -0.2 ABG Methemoglobin 1.5 Reed Test Present Hemoglobin 13.1 Carboxyhemoglobin 0.7 O2 Delivery Device Ventilator Vent Setting Cpap 5/+5/35% Inspired O2 35 Critical Value No Sodium Potassium Chloride Carbon Dioxide Anion Gap BUN Creatinine Estimated GFR POC Glucose 97 Random Glucose Calcium Phosphorus Magnesium Microbiology 09/04/18 07:00 Sputum - Endotracheal Gram Stain - Final 09/04/18 07:00 Sputum - Endotracheal Sputum Culture - Final Heavy growth normal respiratory kingsley 09/04/18 04:00 Blood - Peripheral Aerobic Blood Culture - Preliminary No growth in 3 days 09/04/18 04:00 Blood - Peripheral Anaerobic Blood Culture - Preliminary No growth in 3 days 09/04/18 03:55 Blood - Peripheral Aerobic Blood Culture - Preliminary No growth in 3 days 09/04/18 03:55 Blood - Peripheral Anaerobic Blood Culture - Preliminary No growth in 3 days <Shahrzad Amaya - Last Filed: 09/07/18 19:13> Assessment and Plan (1) PEG (percutaneous endoscopic gastrostomy) status Status: Acute Code(s): Z93.1 - Gastrostomy status - Plan This patient is a 73-year-old female with a past medical history significant for cerebral infarction-2 weeks ago, dysphagia due to intracerebral hemorrhage, encephalopathy, hemiparesis with hemiplegia, hyperlipidemia, hypothyroidism and schizophrenia. Patient was sent to [facility] emergency room from a [facility] after being found lethargic and tachycardic. Patient was found to have low oxygen saturations at that time. Patient was intubated by EMS and tube feeding was noted in the posterior pharynx. Of note, patient has a PEG feeding tube-placed 2 weeks ago at [facility]. Upon arrival to [facility], patient was noted to be febrile and was started on IV antibiotics. Our service has been consulted to evaluate for PEG tube placement and patency. PEG tube flushed with 20 mL's of free water, patent without resistance. Patient is currently intubated and mechanically ventilated, FiO2 35%. Respiratory therapy, planning to extubate tomorrow. Aspiration versus PEG tube displacement PEG tube placement and patency -Patient 2 weeks post CVA. History of dysphagia due to cerebral hemorrhage. -PEG tube placed at [facility] post CVA. -suctioned by EMS, tube feeding noted in posterior pharynx -09/04/2018 chest x-ray:A single AP view of the chest demonstrates an endotracheal tube with the tip 3 cm from the archie. Nasogastric tube courses off the inferior margin of the film. Linear atelectasis is seen within the right lung base. There is elevation of the right hemidiaphragm. Left lung is clear. No effusions. Heart is normal in size. No pneumothorax. -WBC 16.1 hemoglobin 13.2 hematocrit 40.8 platelet count 122 09/07/2018 patient is status post PEG tube placement. Day 1 Jevity feedings initially have been started and tolerated at 20 cc an hour but currently on hold. Patient is pending possible ventilator weaning, discussed restarting when applicable and working towards goal rate. Patient is awake, gradual improvement noted from a pulmonary and GI standpoint. GI will see as needed and will sign off for now. Will need dressing changes for PEG tube site planner for any obvious bleeding. Monitor labs for any acute changes in hemoglobin. Patient was seen per myself and Dr. Amaya, note was written on her behalf P <Michell Garcia - Last Filed: 09/07/18 10:51> (1) PEG (percutaneous endoscopic gastrostomy) status Status: Acute Code(s): Z93.1 - Gastrostomy status - Attending Attestation seen, examined agree with above <Shahrzad Amaya - Last Filed: 09/07/18 19:13>
[2018-09-07] MEDS: Potassium Phosphate Inj 30 MMOL in Sodium Chlor 0.9% Inj 250 ML IV.SIG PRN (11:33)
[2018-09-07] MEDS: Sod Chloride 0.9% Inj 1,000 ML IV.CONT SCH (13:58)
[2018-09-07] MEDS: Levofloxacin 250 mg Premix Inj 250 MG/50 ML PIGGYBACK IV.SIG SCH (14:00)
[2018-09-07 21:17] LABS: Potassium 3.5 meq/L (3.5-5.1)
[2018-09-08] MEDS: hydrALAZINE HCl Inj 20 MG/ML Vial IV.PUSH PRN ×2 (00:46→20:04)
[2018-09-08] MEDS ORDERED: Pharmacy Ordered Lab Info OTHER ONE (02:45)
[2018-09-08 03:23] LABS: Alanine Aminotransferase 12 U/L (10-53); Anion Gap 10 meq/L (5-15); Aspartate Aminotransferase 19 U/L (15-37); Blood Urea Nitrogen 10 mg/dL (7-18); Calcium 7.5 mg/dL (8.5-10.1); Carbon Dioxide 26.2 meq/L (21.0-32.0); Chloride 107 meq/L (98-107); Glomerular Filtration Rate Greater Than 89 mL/min (>89); Glucose,Random 80 mg/dL (74-106); Magnesium 1.8 mg/dL (1.5-2.5); Phosphorus 2.1 mg/dL (2.5-4.9); Potassium 3.3 meq/L (3.5-5.1); Sodium 143 meq/L (136-145)
[2018-09-08 03:25] LABS: Alkaline Phosphatase 58 U/L (45-117); Total Protein 5.6 g/dL (6.4-8.2); Vancomycin,Trough 6.8 mcg/mL (5.0-10.0)
[2018-09-08] MEDS: Chlorhexidine Gluconate 2% 1 Pack (2 Cloths) TOPICAL SCH (03:45)
[2018-09-08] MEDS: Oral Hygiene Kit OROPHARYNG SCH ×4 (03:45→23:50)
[2018-09-08] MEDS: Levothyroxine 50 MCG Tablet PO SCH (05:34)
[2018-09-08] MEDS: Potassium Phosphate Inj 30 MMOL in Sodium Chlor 0.9% Inj 250 ML IV.SIG PRN (06:28)
--- NOTE | 2018-09-08 07:40 | P.PNCC ---
Subjective Subjective Remarks/Hospital Course: 09/05: Afebrile. Patient now more alert and responsive no sedation given. Movement of right upper and lower extremity. Following commands. Patient currently on CPAP trials. Noted persistent leukocytosis slightly decreased noted gram-negative rods and urine culture Levaquin added to medication regimen. GI consulted for G-tube evaluation plan for resumption of tube feeds upon completion. 09/06: Afebrile. The patient has remained on CPAP trials greater than 24 hours. The patient remains on no sedation. The patient underwent exchange of PEG tube placement with GI today. Plan initiation of tube feeds okay to start per Dr. Velasco. Palliative care team following discussed plan with family. Patient's [id number] continues to request alternate codeintubation on. POA documents received and under evaluation with palliative care. No plan to remove endotracheal tube at this time patient will continue on CPAP trials nutrition will be initiated. Patient denies pain, interactively yes/no questions. Leukocytosis resolving. 09/07: Remains intubated off all sedation tolerating CPAP. Chest x-ray from yesterday shows chronically elevated right hemidiaphragm and atelectasis. Follows commands on the right side SUBJECTIVE: 09/08: Extubated yesterday. Remains on small mask 8 L satting 90%. Follows commands on right side. Very weak cough. Tube feeds not been reinitiated yet. Objective Vital Signs / I&O: Vital Signs 09/07/18 08:00 09/07/18 08:57 09/07/18 12:00 Temperature 100 F H 100 F H Pulse Rate 47 L 55 L Respiratory Rate 16 19 31 H Blood Pressure 157/72 H 129/61 Pulse Oximetry 100 100 09/07/18 16:00 09/07/18 20:00 09/07/18 20:46 Temperature 100.4 F H 99.0 F Pulse Rate 50 L 44 L Respiratory Rate 26 H 24 Blood Pressure 156/70 H 156/72 H Pulse Oximetry 99 99 09/08/18 00:00 09/08/18 04:00 09/08/18 05:20 Temperature 98.3 F 99.7 F H Pulse Rate 44 L 52 L Respiratory Rate 26 H 26 H Blood Pressure 165/77 H 140/67 Pulse Oximetry 99 98 99 Intake & Output 09/07/18 09/08/18 09/08/18 18:59 06:59 18:59 Intake Total 210 / 210 760 / 760 Output Total 1200 / 1200 Balance -990 / -990 760 / 760 Weight 67.3 kg Intake: IV 150 / 150 360 / 360 Maxipime Inj 2,000 MG In NS Inj 100 / 100 100 / 100 100 ML @ 200 mls/hr IV.SIG Q12H [facility] Rx#:[id number] Levaquin 250 mg Premix Inj 250 50 / 50 mg In 50 ml @ 50 mls/hr IV.SIG Q24H [facility] Rx#:[id number] Potassium Phosphate Inj 30 MMOL 260 / 260 In NS Inj 250 ML @ 42 mls/hr IV.SIG [facility] Rx#:[id number] Oral 0 / 0 Tube Feeding 60 / 60 0 / 0 Water Bolus Amount 400 / 400 Output: Urine Amount (Catheter) 1200 / 1200 Indwelling Urethral Catheter 1200 / 1200 Other: Date of Last Bowel Movement 09/06/18 09/08/18 # Bowel Movements 1 Result Diagrams: 09/07/18 03:41 09/08/18 02:40 Other Results: Microbiology 09/04/18 07:00 Sputum - Endotracheal Gram Stain - Final 09/04/18 07:00 Sputum - Endotracheal Sputum Culture - Final Heavy growth normal respiratory kingsley 09/04/18 04:00 Blood - Peripheral Aerobic Blood Culture - Preliminary No growth in 3 days 09/04/18 04:00 Blood - Peripheral Anaerobic Blood Culture - Preliminary No growth in 3 days 09/04/18 03:55 Blood - Peripheral Aerobic Blood Culture - Preliminary No growth in 3 days 09/04/18 03:55 Blood - Peripheral Anaerobic Blood Culture - Preliminary No growth in 3 days 09/04/18 05:00 Catheterized Urine Urine Culture - Final Escherichia coli 09/04/18 08:45 Urine - Catheterized Urine Streptococcus pneumoniae Antigen ( M - Final Presumptive negative for streptococcus pneumoniae antigen, suggesting no current or recent infection. Infection due to Streptococcus pneumoniae cannot be ruled out since the antigen present in the sample may be below the detection limit of the test. 09/04/18 08:45 Urine - Catheterized Urine Legionella Antigen - Final Presumptive negative for Legionella pneumophila serogroup 1 antigen in urine, suggesting no recent or recurrent infection. Infection due to Legionella cannot be ruled out since other serogroups and species may cause disease, antigen may not be present in urine in early infection, and the level of antigen present in the urine may be below the detection limit of the test. 09/04/18 08:35 Nasal Wash Influenza Types A,B Antigen - Final Negative for FLU A and B antigen Infection due to influenza A or B cannot be ruled out since the antigen present in the sample may be below the detection limit of the test. Imaging: Chest X-Ray 09/04/18 03:52 CONCLUSION: Elevation of the right hemidiaphragm with right basilar atelectasis. Head CT 09/04/18 05:26 CONCLUSION: 1. No acute intracranial abnormality. 2. Atrophy and chronic small vessel ischemic change. . Abdomen X-Ray 09/05/18 13:56 CONCLUSION: The injected PEG tube has contrast pooling around the balloon resulting in poor evaluation of location. However, given its location in the right upper quadrant this may be within the antral or pylorus region of the stomach. The contrast within the colon is of uncertain etiology. Given the appearance suggest dedicated fluoroscopy evaluation to confirm position. Chest X-Ray 09/06/18 00:00 CONCLUSION: Interval improvement with less bibasilar parenchymal changes and interstitial edema. Chest X-Ray 09/06/18 04:00 CONCLUSION: Stable appearance of the chest. Objective Remarks: GENERAL: Well-nourished chronically ill-appearing elderly female currently resting in bed on simple mask in no acute distress. SKIN: Warm and dry. HEAD: Atraumatic. Normocephalic. EYES: Pupils equal and round. No scleral icterus. No injection or drainage. ENT: No nasal bleeding or discharge. Mucous membranes pink and moist. NECK: Trachea midline. No JVD. CARDIOVASCULAR: Normal rate, regular rhythm. RESPIRATORY: No accessory muscle use. Clear to auscultation. Breath sounds equal bilaterally. GASTROINTESTINAL: Abdomen soft, non-tender, nondistended. No guarding. MUSCULOSKELETAL: Extremities without clubbing, cyanosis, or edema. No obvious deformities. NEUROLOGICAL: Awake and alert. RASS 0. 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 Code(s): I69.359 - Hemiplegia and hemiparesis following cerebral infarction affecting unspecified side Status: Acute (5) Hypothyroidism Code(s): E03.9 - Hypothyroidism, unspecified Status: Acute - Assessment and Plan Plan: Neurologic/PSYCH: Metabolic encephalopathy most likely secondary to sepsis 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 Currently on simple mask at 8 L to maintain saturations greater than equal 92% Incentive spirometry while awake Acapella every 4 hours Albuterol/ipratropium aerosols every 4 hours W aerosols every 2 hours as needed dyspnea Chest x-ray in a.m. 09/09 Cardiovascular: Hyperlipidemia Elevated troponin Maintain map greater than 65, Monitor serial troponin most likely secondary to demand ischemia-now resolved troponin 0.02 Continue aspirin 81 mg daily Continue atorvastatin 20 mg daily for hyperlipidemia Renal: Davis catheter - Strict I/Os FEN/GI: Hypokalemia Hypophosphatemia Lansoprazole for GI prophylaxis Maintain OGT tube currently clamped Continue free water flushes 200 cc GI consulted for evaluation PEG tube-09/06 PEG tube replaced at bedside When okay with GI restart tube feeding 30 mmol K-Phos IV x1 now. 2 g mag sulfate IV x1 now. Heme/ID: E. coli UTI urosepsis Leukocytosis Thrombocytopenia Healthcare associated pneumonia versus aspiration Initial lactate 2.3, follow serial lactate levels Piperacillin/tazobactam (day 4), Levaquin day 4/5. Discontinue vancomycin/4:08 days therapy 09/04 Blood culture-NGTD 09/06 Urine culture-E. coli 09/04 Influenza A/B , pneumococcal, Legionella antigens-negative Monitor CBC-WBC count 16 Endocrine: Hypothyroidism Continue levothyroxine home medication 25 mcgs/day increase to 50 09/04 TSH level elevated 5.8-recheck in 4-6 weeks -- SSI Prophylaxis: GI Prophylaxis Lansoprazole DVT Prophylaxis -- SCDs Heparin 5000 subcu Lines: Peripheral IV Dispo: Level 2 follow-up (1) Altered mental status Qualifiers: Altered mental status type: unspecified Qualified Code(s): R41.82 - Altered mental status, unspecified (2) Hyperlipidemia Qualifiers: Hyperlipidemia type: unspecified Qualified Code(s): E78.5 - Hyperlipidemia, unspecified (3) Hemiplegia affecting left nondominant side Qualifiers: Hemiplegia type: unspecified type Hemiplegia etiology: late effect of cerebrovascular disease Cerebrovascular disease type: unspecified Qualified Code(s): I69.954 - Hemiplegia and hemiparesis following unspecified cerebrovascular disease affecting left non-dominant side (5) Hypothyroidism Qualifiers: Hypothyroidism type: unspecified Qualified Code(s): E03.9 - Hypothyroidism, unspecified
[2018-09-08] MEDS ORDERED: Magnesium Sulfate Inj 2 GM in Sodium Chlor 0.9% Inj 96 ML IV.SIG ONE (08:00)
[2018-09-08] MEDS: Chlorhexidine 0.12% Oral Kit 15 ML UDC OROPHARYNG SCH ×2 (08:33→20:03)
[2018-09-08] MEDS: Heparin - SQ 10,000 UNITS/ML Vial SQ SCH ×2 (08:34→20:03)
[2018-09-08] MEDS: Senna/Docusate Sodium 8.6/50 MG Tablet PO SCH ×2 (08:34→20:04)
[2018-09-08] MEDS: FLUoxetine 20 MG Capsule PO SCH (08:34)
[2018-09-08] MEDS: Miconazole 2% Cream 15 GM Tube TOPICAL SCH ×2 (08:35→20:04)
[2018-09-08] MEDS ORDERED: METRONIDAZOLE TOPICAL SCH (09:00)
[2018-09-08] MEDS ORDERED: CARIPRAZINE PO SCH (09:00)
[2018-09-08] MEDS: Sod Chloride 0.9% Inj 1,000 ML IV.CONT SCH (11:56)
--- NOTE | 2018-09-08 14:03 | P.DIET ---
Nutritional Evaluation Type of nutrition evaluation: initial Nutrition consult regarding: Tube Feeding Nutrition screening: [facility] [place] (TFing) Screening comments: 09/08 MDC for TF'ing Objective - Diagnosis sepsis, AMS, pneumonia - Objective Body Mass Index: 23.9 % IBW: 114 (IBW = 130lb) Body Weight Used for Calculations: Actual (67.3kg) Energy Needs - Lower Range (kCal/kg): 25 Energy Needs - Upper Range (kCal/kg): 30 Lower Limit kCal/kg (kCals): 1,683 Upper Limit kCal/kg (kCals): 2,019 Lower Limit Protein Factor (Grams per Kg): 1.2 Upper Limit Protein Factor (Grams per Kg): 1.4 Lower Protein Needs (Protein): 81 Upper Protein Needs (Protein): 94 Dietitian Reviewed in Medical Record: Curent medications, Intake & Output, Labs , Medical history, Tube feeding Diet Order: TF'ing Objective Comments: PMH: dysphagia d/t old intracerebral hemorrhage, hemiparesis L side, HLD, MDD, schizophrenia, TIA Meds: synthroid Assessment Assessment: MDC for TF'ing received on 09/08. Pt extubated yesterday 09/07. Pt receiving Vital high protein @ 10mL/hr, w/ 20mL goal rate per MD. RD to recommend Jevity 1.5 @ 60mL x 22 hours (d/t synthroid dosing) to provide 1980kcal, 84g of protein , and 1003mL of free water. Continue to monitor TF tolerance. Labs reviewed, dietitian following. Recommendations: 1. RD to recommend Jevity 1.5 @ 60mL x 22 hours (d/t synthroid dosing) 2. Continue to monitor TF tolerance 3. Dietitian following Dietitian to Monitor: Lab values, Intake & Output, Tube feeding tolerance, Swallow recommendations, Medical course
[2018-09-08] MEDS: Levofloxacin 250 mg Premix Inj 250 MG/50 ML PIGGYBACK IV.SIG SCH (15:29)
[2018-09-08 17:07] LABS: Potassium 3.9 meq/L (3.5-5.1)
[2018-09-09] MEDS: Chlorhexidine Gluconate 2% 1 Pack (2 Cloths) TOPICAL SCH (03:52)
[2018-09-09] MEDS: Oral Hygiene Kit OROPHARYNG SCH ×3 (03:52→16:19)
--- NOTE | 2018-09-09 05:07 | XR ---
EXAM DATE: 09/09/2018 4:43 AM EST AGE/SEX: 73 years / Female INDICATIONS: Shortness of breath, possible pulmonary disease. CLINICAL DATA: This is the patient's subsequent encounter. Patient reports that signs and symptoms h ave been present for 4 - 6 days and indicates a pain score of Nonresponsive. MEDICAL/SURGICAL HISTORY: Sepsis. Altered mental status. None. COMPARISON: 09/06/2018. FINDINGS: Single AP view the chest. Endotracheal tube is no longer seen. Persistent elevation of the right jonh diaphragm. Increased bilateral groundglass opacity in the lungs. Small left pleural effusion. Cardiom ediastinal silhouette is unchanged. No evidence of pneumothorax. CONCLUSION: Increased bilateral pulmonary parenchymal opacity indicating pulmonary edema versus infection. Persis tent elevation of the right hemidiaphragm. Electronically signed by: Osvaldo Hinojosa MD 09/09/2018 5:05 AM EST
[2018-09-09] MEDS: Levothyroxine 50 MCG Tablet PO SCH (05:24)
--- NOTE | 2018-09-09 07:04 | P.PNCC ---
Subjective Subjective Remarks/Hospital Course: 09/05: Afebrile. Patient now more alert and responsive no sedation given. Movement of right upper and lower extremity. Following commands. Patient currently on CPAP trials. Noted persistent leukocytosis slightly decreased noted gram-negative rods and urine culture Levaquin added to medication regimen. GI consulted for G-tube evaluation plan for resumption of tube feeds upon completion. 09/06: Afebrile. The patient has remained on CPAP trials greater than 24 hours. The patient remains on no sedation. The patient underwent exchange of PEG tube placement with GI today. Plan initiation of tube feeds okay to start per Dr. Velasco. Palliative care team following discussed plan with family. Patient's [id number] continues to request alternate codeintubation on. POA documents received and under evaluation with palliative care. No plan to remove endotracheal tube at this time patient will continue on CPAP trials nutrition will be initiated. Patient denies pain, interactively yes/no questions. Leukocytosis resolving. 09/07: Remains intubated off all sedation tolerating CPAP. Chest x-ray from yesterday shows chronically elevated right hemidiaphragm and atelectasis. Follows commands on the right side 09/08: Extubated yesterday. Remains on small mask 8 L satting 90%. Follows commands on right side. Very weak cough. Tube feeds not been reinitiated yet. SUBJECTIVE: 09/09: On in between 2 L and 12 L nasal cannula overnight per documentation. Unclear accuracy. Currently 2 L nasal cannula and appears very comfortable. A.m. laboratories all pending. Adjusted tube feeding see orders Objective Vital Signs / I&O: Vital Signs 09/08/18 08:00 09/08/18 08:52 09/08/18 08:59 Temperature 97.8 F Pulse Rate 47 L 49 L Respiratory Rate 21 18 Blood Pressure 129/61 Pulse Oximetry 96 96 97 09/08/18 09:00 09/08/18 10:00 09/08/18 11:00 Temperature Pulse Rate 48 L 49 L 43 L Respiratory Rate 21 23 22 Blood Pressure 122/58 L 123/58 L 122/57 L Pulse Oximetry 97 97 98 09/08/18 11:45 09/08/18 12:00 09/08/18 13:00 Temperature 98.0 F Pulse Rate 48 L 49 L 45 L Respiratory Rate 19 20 20 Blood Pressure 113/55 L Pulse Oximetry 96 98 09/08/18 13:01 09/08/18 14:00 09/08/18 15:00 Temperature Pulse Rate 45 L 50 L 42 L Respiratory Rate 20 22 21 Blood Pressure 139/63 129/60 149/66 H Pulse Oximetry 99 96 99 09/08/18 15:15 09/08/18 16:00 09/08/18 20:00 Temperature 98.3 F 99.0 F Pulse Rate 45 L 53 L 54 L Respiratory Rate 16 20 18 Blood Pressure 122/59 L 117/53 L Pulse Oximetry 96 93 L 97 09/08/18 20:31 09/08/18 23:49 09/09/18 00:00 Temperature 98.1 F Pulse Rate 55 L 51 L 54 L Respiratory Rate 20 20 20 Blood Pressure 104/53 L Pulse Oximetry 97 97 09/09/18 03:09 09/09/18 04:00 Temperature 98.8 F Pulse Rate 46 L 45 L Respiratory Rate 20 18 Blood Pressure 130/60 Pulse Oximetry 99 Intake & Output 09/08/18 09/09/18 09/09/18 18:59 06:59 18:59 Intake Total 776 / 776 318 / 318 Output Total 600 / 600 100 / 100 Balance 176 / 176 218 / 218 Weight 67.8 kg Intake: IV 510 / 510 Maxipime Inj 2,000 MG In NS Inj 100 / 100 100 ML @ 200 mls/hr IV.SIG Q12H MINA Rx#:[id number] Levaquin 250 mg Premix Inj 250 50 / 50 mg In 50 ml @ 50 mls/hr IV.SIG Q24H MINA Rx#:[id number] Magnesium Sulfate Inj 2 GM In 100 / 100 NS Inj 96 ML @ 50 mls/hr IV.SIG ONCE ONE Rx#:[id number] Potassium Phosphate Inj 30 MMOL 260 / 260 In NS Inj 250 ML @ 42 mls/hr IV.SIG UNSCH PRN Rx#:[id number] Oral 0 / 0 Tube Feeding 66 / 66 118 / 118 Water Bolus Amount 200 / 200 200 / 200 Output: Urine 600 / 600 100 / 100 Other: Date of Last Bowel Movement 09/06/18 09/08/18 # Bowel Movements 1 1 Result Diagrams: 09/09/18 06:42 09/09/18 06:42 Other Results: Microbiology 09/04/18 04:00 Blood - Peripheral Aerobic Blood Culture - Preliminary No growth in 4 days 09/04/18 04:00 Blood - Peripheral Anaerobic Blood Culture - Preliminary No growth in 4 days 09/04/18 03:55 Blood - Peripheral Aerobic Blood Culture - Preliminary No growth in 4 days 09/04/18 03:55 Blood - Peripheral Anaerobic Blood Culture - Preliminary No growth in 4 days 09/04/18 07:00 Sputum - Endotracheal Gram Stain - Final 09/04/18 07:00 Sputum - Endotracheal Sputum Culture - Final Heavy growth normal respiratory kingsley 09/04/18 05:00 Catheterized Urine Urine Culture - Final Escherichia coli 09/04/18 08:45 Urine - Catheterized Urine Streptococcus pneumoniae Antigen ( M - Final Presumptive negative for streptococcus pneumoniae antigen, suggesting no current or recent infection. Infection due to Streptococcus pneumoniae cannot be ruled out since the antigen present in the sample may be below the detection limit of the test. 09/04/18 08:45 Urine - Catheterized Urine Legionella Antigen - Final Presumptive negative for Legionella pneumophila serogroup 1 antigen in urine, suggesting no recent or recurrent infection. Infection due to Legionella cannot be ruled out since other serogroups and species may cause disease, antigen may not be present in urine in early infection, and the level of antigen present in the urine may be below the detection limit of the test. 09/04/18 08:35 Nasal Wash Influenza Types A,B Antigen - Final Negative for FLU A and B antigen Infection due to influenza A or B cannot be ruled out since the antigen present in the sample may be below the detection limit of the test. Imaging: ITS Impressions Head CT 09/04/18 05:26 CONCLUSION: 1. No acute intracranial abnormality. 2. Atrophy and chronic small vessel ischemic change. . Abdomen X-Ray 09/05/18 13:56 CONCLUSION: The injected PEG tube has contrast pooling around the balloon resulting in poor evaluation of location. However, given its location in the right upper quadrant this may be within the antral or pylorus region of the stomach. The contrast within the colon is of uncertain etiology. Given the appearance suggest dedicated fluoroscopy evaluation to confirm position. Chest X-Ray 09/09/18 06:00 CONCLUSION: Increased bilateral pulmonary parenchymal opacity indicating pulmonary edema versus infection. Persistent elevation of the right hemidiaphragm. Objective Remarks: GENERAL: Well-nourished chronically ill-appearing elderly female currently resting in bed on simple mask in no acute distress. SKIN: Warm and dry. HEAD: Atraumatic. Normocephalic. EYES: Pupils equal and round. No scleral icterus. No injection or drainage. ENT: No nasal bleeding or discharge. Mucous membranes pink and moist. NECK: Trachea midline. No JVD. CARDIOVASCULAR: Bradycardic. S1, S2. No S4. RESPIRATORY: No accessory muscle use. Clear to auscultation. Breath sounds equal bilaterally. GASTROINTESTINAL: Abdomen soft, non-tender, nondistended. No guarding. MUSCULOSKELETAL: Extremities without clubbing, cyanosis, or edema. No obvious deformities. NEUROLOGICAL: Awake and alert. RASS 0. 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 Code(s): I69.359 - Hemiplegia and hemiparesis following cerebral infarction affecting unspecified side Status: Acute (5) Hypothyroidism Code(s): E03.9 - Hypothyroidism, unspecified Status: Acute (6) Bradycardia Code(s): R00.1 - Bradycardia, unspecified Status: Acute - Assessment and Plan Plan: Neurologic/PSYCH: Metabolic encephalopathy most likely secondary to sepsis History of cerebral infarction thrombus right middle cerebral artery Left hemiplegia History of schizophrenia Neuro checks per ICU protocol Avoid sedative type agents for clear assessment of neuro status Acetaminophen 650 mg every 6 hours as needed, for pain and/or temperature greater than 100.5 Resume aspirin 81 mg daily PT/OT evaluate and treat Continue cariprazine 3 mg daily and fluoxetine 20 mg daily for schizophrenia Respiratory: Probable aspiration Acute hypoxemic respiratory failure COPD? Currently on simple mask at 2 L to maintain saturations greater than equal 92% Incentive spirometry while awake Acapella every 4 hours Albuterol/ipratropium aerosols every 4 hours with albuterol aerosols every 2 hours as needed dyspnea Chest x-ray in a.m. 09/10 Cardiovascular: Hyperlipidemia Elevated troponin Asymptomatic bradycardia Maintain map greater than 65, Monitor serial troponin most likely secondary to demand ischemia-now resolved troponin 0.02 Continue aspirin 81 mg daily Continue atorvastatin 20 mg daily for hyperlipidemia Renal: Davis catheter - Strict I/Os FEN/GI: Hypokalemia Hypophosphatemia Lansoprazole for GI prophylaxis Maintain OGT tube currently clamped Continue free water flushes 100 cc every 6 hours GI consulted for evaluation PEG tube-09/06 PEG tube replaced at bedside When okay with GI restart tube feeding A.m. laboratories pending Start on Jevity 1.5 goal 60 cc recommendations dietary Heme/ID: E. coli UTI urosepsis Leukocytosis Thrombocytopenia Healthcare associated pneumonia versus aspiration Initial lactate 2.3, follow serial lactate levels Cefepime (day 5 of 10%), levofloxacin day02/02. Discontinue vancomycin/4 days therapy 09/04 Blood culture-NGTD 09/06 Urine culture-E. coli 09/04 Influenza A/B , pneumococcal, Legionella antigens-negative Monitor CBC-monitor his Endocrine: Hypothyroidism -TSH currently 5.86 Continue levothyroxine home medication 25 mcgs/day increase to 50 09/04 TSH level elevated 5.8-recheck in 4-6 weeks -- SSI Prophylaxis: GI Prophylaxis Lansoprazole DVT Prophylaxis -- SCDs Heparin 5000 subcu Lines: Peripheral IV Dispo: Level 2 follow-up Stable from critical care medicine standpoint. Assign care to hospitalist in a.m. 09/10 Code Status: Alternate code Discussed Condition With: Patient. No family available (1) Altered mental status Qualifiers: Altered mental status type: unspecified Qualified Code(s): R41.82 - Altered mental status, unspecified (2) Hyperlipidemia Qualifiers: Hyperlipidemia type: unspecified Qualified Code(s): E78.5 - Hyperlipidemia, unspecified (3) Hemiplegia affecting left nondominant side Qualifiers: Hemiplegia type: unspecified type Hemiplegia etiology: late effect of cerebrovascular disease Cerebrovascular disease type: unspecified Qualified Code(s): I69.954 - Hemiplegia and hemiparesis following unspecified cerebrovascular disease affecting left non-dominant side (5) Hypothyroidism Qualifiers: Hypothyroidism type: unspecified Qualified Code(s): E03.9 - Hypothyroidism, unspecified
[2018-09-09 07:26] LABS: Baso % (Auto) 0.6 % (0.0-2.0); Eos % (Auto) 0.2 % (0.0-4.0); Hematocrit 37.1 % (35.0-46.0); Hemoglobin 12.8 gm/dL (11.6-15.3); Mean Corpuscular HGB Conc 34.7 % (32.0-36.0); Mean Corpuscular Hemoglobin 30.8 pg (27.0-34.0); Mean Corpuscular Volume 88.8 fL (80.0-100.0); Mean Platelet Volume 10.1 fL (7.0-11.0); Mono # (Auto) 0.8 th/mm3 (0.0-0.9); Mono % (Auto) 11.8 % (0.0-8.0); Neut # (Auto) 5.1 th/mm3 (1.8-7.7); Neut % (Auto) 73.4 % (16.0-70.0); Platelet Count 126 th/mm3 (150-450); Red Blood Count 4.17 mil/mm3 (4.00-5.30); Red Cell Distribution Width 13.5 % (11.6-17.2); White Blood Count 6.9 th/mm3 (4.0-11.0)
[2018-09-09 07:52] LABS: Alanine Aminotransferase 20 U/L (10-53); Albumin 2.1 g/dL (3.4-5.0); Anion Gap 7 meq/L (5-15); Aspartate Aminotransferase 31 U/L (15-37); Blood Urea Nitrogen 11 mg/dL (7-18); Calcium 7.6 mg/dL (8.5-10.1); Carbon Dioxide 28.7 meq/L (21.0-32.0); Chloride 103 meq/L (98-107); Glomerular Filtration Rate Greater Than 89 mL/min (>89); Glucose,Random 95 mg/dL (74-106); Magnesium 2.1 mg/dL (1.5-2.5); Phosphorus 2.5 mg/dL (2.5-4.9); Potassium 3.7 meq/L (3.5-5.1); Sodium 139 meq/L (136-145)
[2018-09-09 07:54] LABS: Alkaline Phosphatase 55 U/L (45-117); Total Protein 5.8 g/dL (6.4-8.2)
[2018-09-09] MEDS: Heparin - SQ 10,000 UNITS/ML Vial SQ SCH ×2 (09:48→21:15)
[2018-09-09] MEDS: Senna/Docusate Sodium 8.6/50 MG Tablet PO SCH ×2 (09:49→21:16)
[2018-09-09] MEDS: FLUoxetine 20 MG Capsule PO SCH (09:49)
[2018-09-09] MEDS: Chlorhexidine 0.12% Oral Kit 15 ML UDC OROPHARYNG SCH ×2 (09:50→19:56)
[2018-09-09] MEDS: Miconazole 2% Cream 15 GM Tube TOPICAL SCH ×2 (09:50→21:16)
[2018-09-09] MEDS: Levofloxacin 250 mg Premix Inj 250 MG/50 ML PIGGYBACK IV.SIG SCH (16:19)
[2018-09-10] MEDS: Oral Hygiene Kit OROPHARYNG SCH ×5 (01:25→23:15)
--- NOTE | 2018-09-10 05:27 | XR ---
EXAM DATE: 09/10/2018 5:24 AM EST AGE/SEX: 73 years / Female INDICATIONS: Short of breath. CLINICAL DATA: This is the patient's subsequent encounter. Patient reports that signs and symptoms h ave been present for 1 week and indicates a pain score of 0/10. MEDICAL/SURGICAL HISTORY: Sepsis. None. [place] [facility] [place]. . FINDINGS: Single AP view the chest. Persistent elevation right hemidiaphragm. Persistent bilateral pulmonary op acity in the lower lung zones. No significant interval change. Cardiomediastinal silhouette unchanged . No evidence of pneumothorax. CONCLUSION: No change in bilateral lower lung zone predominant pulmonary opacity. Persistent elevation right jonh diaphragm. Electronically signed by: Osvaldo Hinojosa MD 09/10/2018 5:26 AM EST
[2018-09-10] MEDS: Levothyroxine 50 MCG Tablet PO SCH (05:33)
[2018-09-10 07:00] LABS: Baso % (Auto) 0.6 % (0.0-2.0); Eos % (Auto) 0.1 % (0.0-4.0); Hematocrit 36.9 % (35.0-46.0); Hemoglobin 12.7 gm/dL (11.6-15.3); Lymph # (Auto) 1.1 th/mm3 (1.0-4.8); Lymph % (Auto) 15.1 % (9.0-44.0); Mean Corpuscular HGB Conc 34.5 % (32.0-36.0); Mean Corpuscular Hemoglobin 31.2 pg (27.0-34.0); Mean Corpuscular Volume 90.7 fL (80.0-100.0); Mean Platelet Volume 10.1 fL (7.0-11.0); Mono # (Auto) 0.8 th/mm3 (0.0-0.9); Mono % (Auto) 11.1 % (0.0-8.0); Neut # (Auto) 5.5 th/mm3 (1.8-7.7); Neut % (Auto) 73.1 % (16.0-70.0); Platelet Count 137 th/mm3 (150-450); Red Blood Count 4.07 mil/mm3 (4.00-5.30); Red Cell Distribution Width 13.7 % (11.6-17.2); White Blood Count 7.5 th/mm3 (4.0-11.0)
[2018-09-10 07:21] LABS: Albumin 2.1 g/dL (3.4-5.0); Anion Gap 6 meq/L (5-15); Aspartate Aminotransferase 31 U/L (15-37); Blood Urea Nitrogen 11 mg/dL (7-18); Calcium 7.8 mg/dL (8.5-10.1); Carbon Dioxide 26.7 meq/L (21.0-32.0); Chloride 102 meq/L (98-107); Glomerular Filtration Rate Greater Than 89 mL/min (>89); Glucose,Random 147 mg/dL (74-106); Magnesium 1.9 mg/dL (1.5-2.5); Potassium 3.7 meq/L (3.5-5.1); Sodium 135 meq/L (136-145)
[2018-09-10 07:26] LABS: Alanine Aminotransferase 25 U/L (10-53); Alkaline Phosphatase 53 U/L (45-117); Phosphorus 1.9 mg/dL (2.5-4.9); Total Protein 5.7 g/dL (6.4-8.2)
--- NOTE | 2018-09-10 08:18 | P.PNIM ---
Subjective Interval history: in no acute distress and looks comfortable. no fever. on one lietr of oxygen via N/C. d/w the RN and no acute issues over night. Physical Exam Vital signs: Last Vital Signs Temp 98.7 F 09/09/18 20:00 Pulse 59 L 09/10/18 07:58 Resp 20 09/10/18 07:58 BP 111/58 L 09/10/18 05:00 Pulse Ox 94 L 09/10/18 07:58 Intake & Output 09/08/18 09/09/18 09/10/18 09/11/18 06:59 06:59 06:59 06:59 Intake Total 970 / 970 1194 / 1194 1648 / 1648 Output Total 1200 / 1200 700 / 700 400 / 400 Balance -230 / -230 494 / 494 1248 / 1248 Weight 67.3 kg 67.8 kg 69.3 kg Constitutional no acute distress Routine Respiratory Exam Present CTA bilaterally Routine Cardiovascular Exam Present RRR Routine Abdominal Exam Present soft Comments: feeding tube in place. Routine Extremities Exam Comments: no pedal edema. Routine Neurological Exam Present alert Urinary Catheter Management Indwelling Urethral Catheter: Cath placed during this visit: yes Insertion date: 09/04/18 Insertion time: 05:08 Results Labs CBC & Chem 7: 09/10/18 06:16 09/11/18 04:55 Labs: Microbiology 09/04/18 04:00 Blood - Peripheral Aerobic Blood Culture - Final No growth in 5 days 09/04/18 04:00 Blood - Peripheral Anaerobic Blood Culture - Final No growth in 5 days 09/04/18 03:55 Blood - Peripheral Aerobic Blood Culture - Final No growth in 5 days 09/04/18 03:55 Blood - Peripheral Anaerobic Blood Culture - Final No growth in 5 days Imaging Imaging: Impressions Chest X-Ray 09/10/18 06:00 CONCLUSION: No change in bilateral lower lung zone predominant pulmonary opacity. Persistent elevation right hemidiaphragm. Assessment and Plan (1) Altered mental status: Code(s): R41.82 - Altered mental status, unspecified Status: Acute (2) Hyperlipidemia: Code(s): E78.5 - Hyperlipidemia, unspecified Status: Acute (3) Hemiplegia affecting left nondominant side: Code(s): G81.94 - Hemiplegia, unspecified affecting left nondominant side Status: Acute (4) Hemiparesis affecting nondominant side as late effect of cerebrovascular accident: Code(s): I69.359 - Hemiplegia and hemiparesis following cerebral infarction affecting unspecified side Status: Acute (5) Hypothyroidism: Code(s): E03.9 - Hypothyroidism, unspecified Status: Acute (6) Bradycardia: Code(s): R00.1 - Bradycardia, unspecified Status: Acute Plan A/P Metabolic encephalopathy most likely secondary to sepsis History of cerebral infarction thrombus right middle cerebral artery Left hemiplegia History of schizophrenia Avoid sedative type agents for clear assessment of neuro status Acetaminophen 650 mg every 6 hours as needed, for pain and/or temperature greater than 100.5 Resumed aspirin 81 mg daily PT/OT/ST evaluate and treat Continue cariprazine 3 mg daily and fluoxetine 20 mg daily for schizophrenia Probable aspiration Acute hypoxemic respiratory failure COPD? continue IV antibiotics Currently on one liter of oxygen via N/C Incentive spirometry while awake Acapella every 4 hours Albuterol/ipratropium aerosols every 4 hours with albuterol aerosols every 2 hours as needed dyspnea Hyperlipidemia Elevated troponin Asymptomatic bradycardia Monitor serial troponin most likely secondary to demand ischemia-now resolved troponin 0.02 Continue aspirin 81 mg daily Continue atorvastatin 20 mg daily for hyperlipidemia Hypokalemia Hypophosphatemia Lansoprazole for GI prophylaxis Maintain OGT tube currently clamped Continue free water flushes 100 cc every 6 hours GI consulted for evaluation PEG tube-09/06 PEG tube replaced at bedside Started on Jevity 1.5 goal 60 cc recommendations dietary E. coli UTI urosepsis Leukocytosis Thrombocytopenia Healthcare associated pneumonia versus aspiration continue IV antibiotic. 09/04 Blood culture-NGTD 09/06 Urine culture-E. coli 09/04 Influenza A/B , pneumococcal, Legionella antigens-negative Monitor CBC- Hypothyroidism -TSH currently 5.86 Continue levothyroxine home medication 25 mcgs/day increase to 50 09/04 TSH level elevated 5.8-recheck in 4-6 weeks -- SSI Prophylaxis: GI Prophylaxis Lansoprazole DVT Prophylaxis -- SCDs Heparin 5000 subcu will transfer to medical floor. d/w the RN and RT at the bedside. Progress Note: Quality VTE Deep Vein Thrombosis/Pulmonary Embolism Present on Admission: No _ (1) Hemiplegia affecting left nondominant side Qualifiers: Cerebrovascular disease type: unspecified Hemiplegia etiology: late effect of cerebrovascular disease Hemiplegia type: unspecified type Qualified Code(s) : I69.954 - Hemiplegia and hemiparesis following unspecified cerebrovascular disease affecting left non-dominant side (2) Hyperlipidemia Qualifiers: Hyperlipidemia type: unspecified Qualified Code(s): E78.5 - Hyperlipidemia, unspecified (3) Hypothyroidism Qualifiers: Hypothyroidism type: unspecified Qualified Code(s): E03.9 - Hypothyroidism, unspecified (4) Altered mental status Qualifiers: Altered mental status type: unspecified Coma depth: Coma timing: Qualified Code(s): R41.82 - Altered mental status, unspecified
[2018-09-10] MEDS: Chlorhexidine 0.12% Oral Kit 15 ML UDC OROPHARYNG SCH ×2 (09:07→20:06)
[2018-09-10] MEDS: Heparin - SQ 10,000 UNITS/ML Vial SQ SCH ×2 (09:07→21:40)
[2018-09-10] MEDS: FLUoxetine 20 MG Capsule PO SCH (09:07)
[2018-09-10] MEDS: Miconazole 2% Cream 15 GM Tube TOPICAL SCH ×2 (09:08→21:41)
[2018-09-10] MEDS: Senna/Docusate Sodium 8.6/50 MG Tablet PO SCH ×2 (09:09→21:41)
[2018-09-10] MEDS ORDERED: Sodium Glycerophosphate Inj 30 MMOL in Sodium Chlor 0.9% Inj 250 ML IV.SIG SCH (10:00)
--- NOTE | 2018-09-10 13:19 | P.PNPAL ---
Reason for Visit Reason for visit: a. To assist with evaluation and management of symptoms including:Dyspnea, dysphagia, altered mental status, Debility b. To assist medical decision maker(s) with: better understanding of current medical conditions; weighing benefits/burdens of medical treatment options; making medical treatment decisions. Subjective Subjective/Interval History: Follow-up medically necessary for symptom management and establishment of goals of care with patient's healthcare proxy's-brother and sister. Patient seen and examined on MICU. Patient is awake, alert, aphasic. Patient is able to follow simple commands like lifting two fingers and wiggling toes only with the right upper and right lower extremity. Left upper and lower extremities flaccid, slightly withdraws from noxious stimulation. Tube feeding infusing via PEG tube. Tolerating per bedside RN. PEG tube was switched out to a 22 [place] Islander on 09/06/18. Patient was medically extubated on 09/07/2018 to O2 2 L nasal cannula. Physical therapy recommending PT at rehab, occupational therapy recommending OT at rehab. Speech therapy evaluated patient 09/10/2018 recommended n.p.o. Telephone call placed to patient's brother Nathan Rayo ([phone]), no response, left a voice message with palliative care contact information. Telephone conversation with patient's sister Nicolle Toledo ([phone]). Introduced palliative care and his role in symptom management and goals of medical treatment. Explained determination of healthcare proxy according to [place] statute to patient's sister. Patient's sister Nicolle confirmed that she would like to serve as patient's healthcare proxy. Updated her on patient' s past medical history, and events leading to this hospitalization as well as patient's clinical presentation. Medical treatment was offered to patient during her hospitalization. Expressed concern regarding complications that patient will be faced with due to her current medical condition. Anticipatory guidance provided in regards to medical decisions that patient's sister would be faced with as a healthcare proxy including CODE STATUS. Discussed most likely probable situation of patient residing in a halfway or need for 24/ 7 private care due to need with total assistance with activities of daily living. Patient sister was not able to make any decisions at this time, she would like to speak with other family members as well as a brother to decide what would be best for patient. Palliative care contact information provided to patient sister. Palliative care will continue discussions with family regarding goals of medical treatment. Received call back from patient`s brother Nathan Rayo who elected to serve as patient`s health care proxy. Updated him on patient's current medical status. Patient's brother and ihcnik-vu-zvi Girma Hansen stated that the patient's quality of life prior to having a stroke was not the best. She required assistance with almost all her ADLs and her inability to take care of herself. Patient's brother feels that patient`s quality of life has been poor and would like patient`s code status to be changed to DNR/DNI. Patient`s sister Nicolle Toledo, called back and has also decided to change patient`s status to do not resuscitate /do not intubate. Case discussed with bedside RN on [facility] and on [address] [place] [address] where patient was transferred to. . Family/Friend Interactions: See interval note. . Advance Directives Living Will: Never completed Health Care Surrogate: Never completed Durable Power of Cage Supervisor: Copy in medical record Health Care Surrogate Name and Number: HCP: Heath Girma and Nicolle Toledo Objective Vital Signs: Vital Signs 09/09/18 13:00 09/09/18 14:00 09/09/18 15:00 Temperature Pulse Rate 55 L 55 L 51 L Respiratory Rate 23 23 21 Blood Pressure 137/63 148/67 H 134/66 Pulse Oximetry 99 98 96 09/09/18 15:24 09/09/18 16:00 09/09/18 17:00 Temperature 98.2 F Pulse Rate 49 L 56 L 66 Respiratory Rate 25 H 24 25 H Blood Pressure 133/61 140/67 Pulse Oximetry 93 L 89 L 09/09/18 18:00 09/09/18 19:00 09/09/18 19:39 Temperature Pulse Rate 54 L 54 L 55 L Respiratory Rate 21 22 23 Blood Pressure 142/66 H 158/75 H Pulse Oximetry 97 95 96 09/09/18 20:00 09/09/18 21:00 09/09/18 22:00 Temperature 98.7 F Pulse Rate 56 L 63 60 Respiratory Rate 22 21 22 Blood Pressure 135/63 130/63 122/61 Pulse Oximetry 96 94 L 97 09/09/18 23:00 09/09/18 23:08 09/10/18 00:00 Temperature Pulse Rate 60 58 L 63 Respiratory Rate 26 H 23 21 Blood Pressure 121/61 123/63 Pulse Oximetry 96 96 09/10/18 01:00 09/10/18 02:00 09/10/18 03:00 Temperature Pulse Rate 69 61 60 Respiratory Rate 26 H 27 H 23 Blood Pressure 136/65 123/59 L 124/64 Pulse Oximetry 96 96 96 09/10/18 03:41 09/10/18 04:00 09/10/18 05:00 Temperature Pulse Rate 59 L 63 63 Respiratory Rate 22 23 22 Blood Pressure 126/60 111/58 L Pulse Oximetry 93 L 95 09/10/18 07:58 09/10/18 08:00 09/10/18 11:38 Temperature 98.2 F Pulse Rate 59 L 58 L 59 L Respiratory Rate 20 20 20 Blood Pressure 123/64 Pulse Oximetry 94 L 94 L Intake & Output 09/09/18 09/10/18 09/10/18 18:59 06:59 18:59 Intake Total 447 / 447 1201 / 1201 Output Total 200 / 200 200 / 200 Balance 247 / 247 1001 / 1001 Weight 69.3 kg Intake: IV 250 / 250 Maxipime Inj 2,000 MG In NS Inj 200 / 200 100 ML @ 200 mls/hr IV.SIG Q12H MINA Rx#:[id number] Levaquin 250 mg Premix Inj 250 50 / 50 mg In 50 ml @ 50 mls/hr IV.SIG Q24H [facility]A Rx#:[id number] Oral 0 / 0 Tube Feeding 247 / 247 751 / 751 Water Bolus Amount 200 / 200 200 / 200 Output: Urine 200 / 200 200 / 200 Other: Date of Last Bowel Movement 09/09/18 09/10/18 09/10/18 # Bowel Movements 1 Physical Exam: CONSTITUTIONAL/GENERAL: This is an elderly chronically ill looking patient in no apparent distress. TUBES/LINES/DRAINS: PEG tube, PIV, nasal cannula, Female external catheter. SKIN: No jaundice, rashes, or lesions. Ecchymoses on upper extremities. No wounds seen anteriorly. Normothermic. HEAD: Atraumatic. Normocephalic. EYES: Pupils equal and round and reactive. Extraocular motions intact. No scleral icterus. No injection or drainage. Fundi not examined. ENT: Hearing grossly normal. Nose without bleeding or purulent drainage. Moist oral mucosa. NECK: Trachea midline. Supple, nontender. CARDIOVASCULAR: S1, S2 normal. No JVD. Peripheral pulses symmetric. RESPIRATORY/CHEST: Symmetric, unlabored respirations. Diminished breath sounds. No wheezes, rales, or rhonchi. GASTROINTESTINAL: Abdomen soft, non-tender, nondistended. No guarding. Bowel sounds present. GENITOURINARY: Without palpable bladder distension. Female external catheter MUSCULOSKELETAL: Extremities without clubbing, cyanosis, or edema. No joint tenderness or effusion noted. No calf tenderness. No mottling or clubbing. LYMPHATICS: Did not assess NEUROLOGICAL: Awake, following commands with right side, flaccid to left side. Aphasic. PSYCHIATRIC: Unable to assess. Currently calm. Diagnostic Tests Laboratory: Laboratory Results - last 72 hr 09/07/18 09/08/18 09/08/18 20:40 02:40 15:58 WBC RBC Hgb Hct MCV MCH MCHC RDW Plt Count MPV Neut % (Auto) Lymph % (Auto) Gulf % (Auto) Eos % (Auto) Baso % (Auto) Neut # (Auto) Lymph # (Auto) Gulf # (Auto) Eos # (Auto) Baso # (Auto) WBC Differential Differential Comment Sodium 143 Potassium 3.5 3.3 L 3.9 Chloride 107 Carbon Dioxide 26.2 Anion Gap 10 BUN 10 Creatinine 0.33 L Estimated GFR Greater than 89 Random Glucose 80 Calcium 7.5 L Phosphorus 3.0 2.1 L 3.0 Magnesium 1.8 Total Bilirubin 0.5 AST 19 ALT 12 Alkaline Phosphatase 58 Total Protein 5.6 L Albumin 2.0 L Vancomycin Trough 6.8 09/09/18 09/09/18 09/10/18 06:42 06:42 06:16 WBC 6.9 7.5 RBC 4.17 4.07 Hgb 12.8 12.7 Hct 37.1 36.9 MCV 88.8 90.7 MCH 30.8 31.2 MCHC 34.7 34.5 RDW 13.5 13.7 Plt Count 126 L 137 L MPV 10.1 10.1 Neut % (Auto) 73.4 H 73.1 H Lymph % (Auto) 14.0 15.1 Gulf % (Auto) 11.8 H 11.1 H Eos % (Auto) 0.2 0.1 Baso % (Auto) 0.6 0.6 Neut # (Auto) 5.1 5.5 Lymph # (Auto) 1.0 1.1 Gulf # (Auto) 0.8 0.8 Eos # (Auto) 0.0 0.0 Baso # (Auto) 0.0 0.0 WBC Differential . . Differential Comment Auto diff final Auto diff final Sodium 139 Potassium 3.7 Chloride 103 Carbon Dioxide 28.7 Anion Gap 7 BUN 11 Creatinine 0.28 L Estimated GFR Greater than 89 Random Glucose 95 Calcium 7.6 L Phosphorus 2.5 Magnesium 2.1 Total Bilirubin 0.4 AST 31 ALT 20 Alkaline Phosphatase 55 Total Protein 5.8 L Albumin 2.1 L Vancomycin Trough 09/10/18 06:16 WBC RBC Hgb Hct MCV MCH MCHC RDW Plt Count MPV Neut % (Auto) Lymph % (Auto) Gulf % (Auto) Eos % (Auto) Baso % (Auto) Neut # (Auto) Lymph # (Auto) Gulf # (Auto) Eos # (Auto) Baso # (Auto) WBC Differential Differential Comment Sodium 135 L Potassium 3.7 Chloride 102 Carbon Dioxide 26.7 Anion Gap 6 BUN 11 Creatinine 0.42 L Estimated GFR Greater than 89 Random Glucose 147 H Calcium 7.8 L Phosphorus 1.9 L Magnesium 1.9 Total Bilirubin 0.3 AST 31 ALT 25 Alkaline Phosphatase 53 Total Protein 5.7 L Albumin 2.1 L Vancomycin Trough Result Diagrams: 09/10/18 06:16 09/10/18 06:16 Microbiology: Microbiology 09/04/18 04:00 Aerobic Blood Culture - Final Blood - Peripheral No growth in 5 days Anaerobic Blood Culture - Final No growth in 5 days 09/04/18 03:55 Aerobic Blood Culture - Final Blood - Peripheral No growth in 5 days Anaerobic Blood Culture - Final No growth in 5 days 09/04/18 07:00 Gram Stain - Final Sputum - Endotracheal Sputum Culture - Final Heavy growth normal respiratory [facility]: Head CT 09/04/18 05:26 CONCLUSION: 1. No acute intracranial abnormality. 2. Atrophy and chronic small vessel ischemic change. . Abdomen X-Ray 09/05/18 13:56 CONCLUSION: The injected PEG tube has contrast pooling around the balloon resulting in poor evaluation of location. However, given its location in the right upper quadrant this may be within the antral or pylorus region of the stomach. The contrast within the colon is of uncertain etiology. Given the appearance suggest dedicated fluoroscopy evaluation to confirm position. Chest X-Ray 09/10/18 06:00 CONCLUSION: No change in bilateral lower lung zone predominant pulmonary opacity. Persistent elevation right hemidiaphragm. Procedures: 09/04/18-endotracheally intubated by EMS en route to the hospital 09/06/18-PEG tube inserted 09/07/18-medically extubated Assessment and Plan - Disease Oriented Problem List (1) Metabolic encephalopathy (2) Hyperlipidemia (3) Hypothyroidism (4) Hemiplegia affecting left nondominant side (5) Hemiparesis affecting nondominant side as late effect of cerebrovascular accident (6) Urinary tract infection - Symptom Scale (1) Dysphagia 0-10 Scale: Unable to quantify Comment: Recent stroke with residual left sided hemiplegia and dysphagia. Pt had PEG tube placed approximately 2 week ago after stroke. (2) Dyspnea 0-10 Scale: Unable to quantify Comment: Probable aspiration. EMS noted tube feeding in pharynx. (3) Altered mental status 0-10 Scale: Unable to quantify (4) Debility 0-10 Scale: Unable to quantify Comment: Progressive. Recent stroke with left sided hemiplegia, and dysphagia. Pertinent Non-Medical Issues: Psychosocial: Patient is originally from [facility]. 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 Patient is . She only had one son who 3 months ago from esophageal cancer. Patient has 2 siblings a sister and a brother. Patient has 3 grandchildren. Spiritual: Patient is a [employer]. 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 Her son Derrell Okeefe was her DPOA and her daughter in law is her alternate DPOA Ethical issues impacting care: None identified at this time Important Contacts: HCP -Brother- Nathan "Heath" [phone] HCP- Sister Nicolle Alcantarastone [phone] Zjyqzw-gv-wdp- Jade Girma [phone] Erika OkeefeQsubos-gytpsupb-md-law [phone] cellphone/[phone] Prognosis: Mrs. Okeefe is a 73-year-old female with a past medical history of cerebral infarction, chronic dysphagia post intracerebral hemorrhage, PEG tube, encephalopathy, left-sided hemiparesis, hemiplegia to nondominant left side, hyperlipidemia, hypothyroidism, major depressive disorder, schizophrenia and TIA. Patient was brought by EMS to the emergency room on 09/04/18 from a correction facility for evaluation of lethargy, tachycardia with dyspnea. Patient was intubated in route to [facility]. Clinical course complicated with persistent leukocytosis, dyspnea and urinary tract infection. Given multiple ongoing comorbidities and recent CVA with left-sided hemiparesis and dysphagia, patient remains at high risk for further complications, deterioration and decline. . Code Status: No Code DNR Plan: PLAN: Legal decision maker: Patient is currently intubated on mechanical ventilation. She is currently not able to participate in medical decision making. It is not known whether she will be able to regain this capacity. Patient is . Her only son is . Her parents are . According to [place] statute, her brother Nathan Rayo and sister Nicolle Toledo would serve as her Healthcare Proxys if they are willing to do so. Goals: Aggressive. Telephone conversation with patient's sister Nicolle Toledo. Discussed medical treatment offered to patient during her hospitalization. Expressed concern regarding complications that patient will be faced with due to her current medical condition. Anticipatory guidance provided in regards to medical decisions that patient's sister would be faced with as a healthcare proxy including CODE STATUS. Discussed most likely probable situation of patient residing in a halfway or need for 24/7 private care due to need with total assistance with activities of daily living. Patient sister was not able to make any decisions at this time, she would like to speak with other family members as well as her brother Heath Rayo to decide what would be best for patient. Telephone conversations with both patient`s sister and brother. Both healthcare proxy`s elected DNR/DNI CODE STATUS: No Code DNR/DNI SYMPTOMS: * Altered mental status: Hx of schizophrenia. Patient was brought in with chief complaint of altered mental status. It appears patient is back to his baseline. She is following simple commands with the right side. * Dysphagia: Patient recently suffered a stroke with complications of dysphagia. Patient is a PEG tube. Patient was noted to have tube feeds around the pharynx. Possible aspiration. Speech therapy consulted recommended nothing by mouth. * Dyspnea: Possible aspiration. Patient required intubation in the field. Patient medically extubated on 09/07/18. Currently on 1 L O2 nasal cannula. * Debility: Progressive. Recent history of CVA with right-sided hemiparesis and dysphagia. Patient is currently bedbound and dependent for all his ADLs. Unsure how much patient would be able to participate in physical therapy given his current physical limitations. PT, OT recommending rehabilitation at a correction facility. Palliative care will continue to follow the patient during hospital course as condition evolves, to assist patient/decision-maker with understanding of their medical conditions, weighing benefits/burdens of treatment options, for clarification of goals of treatment. Additionally will assist with any symptoms of palliative concern Attestation Attestation: To help prompt me to consider important information that might be impacting today's encounter and assessment, information from prior notes written by myself or my colleagues may have been "brought forward" into today's note. My signature on this note, however, is an attestation that I personally performed the exam, history, and/or decision-making noted today, and, unless otherwise indicated, the interactions with patient, family, and staff as well as the review of records all occurred today. I also attest that the listed assessment and stated plan reflect my best clinical judgment today based on the combination of historical information, prior notes, and today's exam/ interactions. When time spent is documented, it refers only to time spent today by the signer, or if indicated, combined time spent today by collaborating physician/nurse practitioner.
[2018-09-11] MEDS: Oral Hygiene Kit OROPHARYNG SCH ×3 (04:45→23:54)
[2018-09-11 05:44] LABS: Glomerular Filtration Rate Greater Than 89 mL/min (>89)
[2018-09-11 05:45] LABS: Phosphorus 2.5 mg/dL (2.5-4.9)
[2018-09-11] MEDS: Levothyroxine 50 MCG Tablet PO SCH (06:39)
[2018-09-11] MEDS: Heparin - SQ 10,000 UNITS/ML Vial SQ SCH ×2 (09:21→21:27)
[2018-09-11] MEDS: Chlorhexidine 0.12% Oral Kit 15 ML UDC OROPHARYNG SCH ×2 (09:21→21:28)
[2018-09-11] MEDS: FLUoxetine 20 MG Capsule PO SCH (09:22)
[2018-09-11] MEDS: Senna/Docusate Sodium 8.6/50 MG Tablet PO SCH ×2 (09:22→21:29)
[2018-09-11] MEDS: Miconazole 2% Cream 15 GM Tube TOPICAL SCH ×2 (09:23→21:28)
--- NOTE | 2018-09-11 11:55 | P.PNPAL ---
Reason for Visit Reason for visit: a. To assist with evaluation and management of symptoms including:Dyspnea, dysphagia, altered mental status, Debility b. To assist medical decision maker(s) with: better understanding of current medical conditions; weighing benefits/burdens of medical treatment options; making medical treatment decisions. Subjective Subjective/Interval History: Follow-up medically necessary for symptom management. Patient seen and examined in the room. She is awake, aphasic, only follows simple commands with right upper extremity and right lower extremity. Patient does not appear to be in pain all in any acute distress. Patient is flaccid to the left upper and left lower extremity. Occasionally patients nods or shakes her head and responds to simple questions. Per bedside RN, patient was able to say "coffee" once and she was able to slurry repeat some simple words during his speech therapy session. Tube feeding infusing via PEG tube at goal rate. Tolerating tube feeds pain nursing reports. Case management is assisting with discharge planning. 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 . Advance Directives Living Will: Never completed Health Care Surrogate: Never completed Durable Power of Water Server: Copy in medical record Health Care Surrogate Name and Number: HCP: Heath Rayo and Nicolle Toledo Objective Vital Signs: Vital Signs 09/10/18 12:00 09/10/18 15:16 09/10/18 15:17 Temperature 98.2 F Pulse Rate 65 64 Respiratory Rate 23 18 Blood Pressure 144/71 H Pulse Oximetry 94 L 96 09/10/18 16:00 09/10/18 19:06 09/10/18 20:00 Temperature 98.2 F 97.6 F Pulse Rate 65 65 62 Respiratory Rate 22 20 20 Blood Pressure 124/67 120/68 Pulse Oximetry 96 96 09/10/18 23:56 09/11/18 00:00 09/11/18 04:00 Temperature 97.8 F 98.3 F Pulse Rate 66 58 L 64 Respiratory Rate 16 20 20 Blood Pressure 124/75 114/54 L Pulse Oximetry 98 95 09/11/18 04:45 09/11/18 07:50 09/11/18 08:00 Temperature 97.5 F L Pulse Rate 62 64 69 Respiratory Rate 13 16 14 Blood Pressure 124/61 Pulse Oximetry 96 94 L Intake & Output 12/11/18 12/12/18 12/12/18 18:59 06:59 18:59 Intake Total 380 / 380 100 / 100 100 / 100 Output Total 150 / 150 Balance 230 / 230 100 / 100 100 / 100 Weight 68.5 kg Intake: IV 380 / 380 100 / 100 100 / 100 Maxipime Inj 2,000 MG In NS Inj 100 / 100 100 / 100 100 / 100 100 ML @ 200 mls/hr IV.SIG Q12H MINA Rx#:[id number] Glycophos Inj 30 MMOL In NS Inj 280 / 280 250 ML @ 42 mls/hr IV.SIG UNSCH MINA Rx#:[id number] Oral 0 / 0 Output: Urine 150 / 150 Other: # Voids 3 Date of Last Bowel Movement 09/10/18 09/11/18 09/11/18 # Bowel Movements 3 Physical Exam: CONSTITUTIONAL/GENERAL: This is an elderly chronically ill looking patient in no apparent distress. TUBES/LINES/DRAINS: PEG tube, PIV, nasal cannula, Female external catheter. SKIN: No jaundice, rashes, or lesions. Ecchymoses on upper extremities. No wounds seen anteriorly. Normothermic. HEAD: Atraumatic. Normocephalic. EYES: Pupils round and reactive to light. No scleral icterus. No injection or drainage. Fundi not examined. ENT: Hearing grossly normal. Nose without bleeding or purulent drainage. Moist oral mucosa. NECK: Trachea midline. Supple, nontender. CARDIOVASCULAR: S1, S2 normal. No JVD. Peripheral pulses symmetric. RESPIRATORY/CHEST: Symmetric, unlabored respirations. Diminished breath sounds. No wheezes, rales, or rhonchi. GASTROINTESTINAL: Abdomen soft, non-tender, nondistended. No guarding. Bowel sounds present. GENITOURINARY: Without palpable bladder distension. Female external catheter MUSCULOSKELETAL: Extremities without clubbing, cyanosis, or edema. No joint tenderness or effusion noted. No calf tenderness. No mottling or clubbing. LYMPHATICS: Did not assess NEUROLOGICAL: Awake, following commands with right side, flaccid to left side. Aphasic. PSYCHIATRIC: Unable to assess. Currently calm. Diagnostic Tests Laboratory: Laboratory Results - last 72 hr 09/08/18 09/09/18 09/09/18 15:58 06:42 06:42 WBC 6.9 RBC 4.17 Hgb 12.8 Hct 37.1 MCV 88.8 MCH 30.8 MCHC 34.7 RDW 13.5 Plt Count 126 L MPV 10.1 Neut % (Auto) 73.4 H Lymph % (Auto) 14.0 [place] % (Auto) 11.8 H Eos % (Auto) 0.2 Baso % (Auto) 0.6 Neut # (Auto) 5.1 Lymph # (Auto) 1.0 [place] # (Auto) 0.8 Eos # (Auto) 0.0 Baso # (Auto) 0.0 WBC Differential . Differential Comment Auto diff final Sodium 139 Potassium 3.9 3.7 Chloride 103 Carbon Dioxide 28.7 Anion Gap 7 BUN 11 Creatinine 0.28 L Estimated GFR Greater than 89 Random Glucose 95 Calcium 7.6 L Phosphorus 3.0 2.5 Magnesium 2.1 Total Bilirubin 0.4 AST 31 ALT 20 Alkaline Phosphatase 55 Total Protein 5.8 L Albumin 2.1 L 09/10/18 09/10/18 09/11/18 06:16 06:16 04:55 WBC 7.5 RBC 4.07 Hgb 12.7 Hct 36.9 MCV 90.7 MCH 31.2 MCHC 34.5 RDW 13.7 Plt Count 137 L MPV 10.1 Neut % (Auto) 73.1 H Lymph % (Auto) 15.1 [place] % (Auto) 11.1 H Eos % (Auto) 0.1 Baso % (Auto) 0.6 Neut # (Auto) 5.5 Lymph # (Auto) 1.1 [place] # (Auto) 0.8 Eos # (Auto) 0.0 Baso # (Auto) 0.0 WBC Differential . Differential Comment Auto diff final Sodium 135 L Potassium 3.7 Chloride 102 Carbon Dioxide 26.7 Anion Gap 6 BUN 11 Creatinine 0.42 L 0.36 L Estimated GFR Greater than 89 Greater than 89 Random Glucose 147 H Calcium 7.8 L Phosphorus 1.9 L 2.5 Magnesium 1.9 Total Bilirubin 0.3 AST 31 ALT 25 Alkaline Phosphatase 53 Total Protein 5.7 L Albumin 2.1 L Result Diagrams: 09/10/18 06:16 09/11/18 04:55 Microbiology: Microbiology 09/04/18 04:00 Aerobic Blood Culture - Final Blood - Peripheral No growth in 5 days Anaerobic Blood Culture - Final No growth in 5 days 09/04/18 03:55 Aerobic Blood Culture - Final Blood - Peripheral No growth in 5 days Anaerobic Blood Culture - Final No growth in 5 days Imaging: Head CT 09/04/18 05:26 CONCLUSION: 1. No acute intracranial abnormality. 2. Atrophy and chronic small vessel ischemic change. . Abdomen X-Ray 09/05/18 13:56 CONCLUSION: The injected PEG tube has contrast pooling around the balloon resulting in poor evaluation of location. However, given its location in the right upper quadrant this may be within the antral or pylorus region of the stomach. The contrast within the colon is of uncertain etiology. Given the appearance suggest dedicated fluoroscopy evaluation to confirm position. Chest X-Ray 09/10/18 06:00 CONCLUSION: No change in bilateral lower lung zone predominant pulmonary opacity. Persistent elevation right hemidiaphragm. Procedures: 09/04/18-endotracheally intubated by EMS en route to the hospital 09/06/18-PEG tube inserted 09/07/18-medically extubated Assessment and Plan - Disease Oriented Problem List (1) Metabolic encephalopathy (2) Hyperlipidemia (3) Hypothyroidism (4) Hemiplegia affecting left nondominant side (5) Hemiparesis affecting nondominant side as late effect of cerebrovascular accident (6) Urinary tract infection - Symptom Scale (1) Dysphagia Comment: Recent stroke with residual left sided hemiplegia and dysphagia. Pt had PEG tube placed approximately 2 week ago after stroke. (2) Dyspnea 0-10 Scale: Unable to quantify Comment: Probable aspiration. EMS noted tube feeding in pharynx. (3) Altered mental status 0-10 Scale: Unable to quantify (4) Debility 0-10 Scale: Unable to quantify Comment: Progressive. Recent stroke with left sided hemiplegia, and dysphagia. Pertinent Non-Medical Issues: Psychosocial: Patient is originally from [facility]. 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 Patient is . She only had one son who 3 months ago from esophageal cancer. Patient has 2 siblings a sister and a brother. Patient has 3 grandchildren. Spiritual: Patient is a Judaism. 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 Her son Derrell Okeefe was her DPOA and her daughter in law is her alternate DPOA Ethical issues impacting care: None identified at this time Important Contacts: HCP -Brother- Nathan "Heath" Qiueh-[phone] HCP- Sister Nicolle Toledo [phone] Ptytie-cg-lhm- Jade Rayo [phone] Erika OkeefeAhekwo-yoxhwvtc-hy-law [phone] cellphone/[phone] Prognosis: Mrs. Okeefe is a 73-year-old female with a past medical history of cerebral infarction, chronic dysphagia post intracerebral hemorrhage, PEG tube, encephalopathy, left-sided hemiparesis, hemiplegia to nondominant left side, hyperlipidemia, hypothyroidism, major depressive disorder, schizophrenia and TIA. Patient was brought by EMS to the emergency room on 09/04/18 from a long term facility for evaluation of lethargy, tachycardia with dyspnea. Patient was intubated in route to [facility]. Clinical course complicated with persistent leukocytosis, dyspnea and urinary tract infection. Given multiple ongoing comorbidities and recent CVA with left-sided hemiparesis and dysphagia, patient remains at high risk for further complications, deterioration and decline. . Code Status: No Code DNR Plan: PLAN: Legal decision maker: Patient is currently intubated on mechanical ventilation. She is currently not able to participate in medical decision making. It is not known whether she will be able to regain this capacity. Patient is . Her only son is . Her parents are . According to [place] statute, her brother Nathan Rayo and sister Nicolle Toledo would serve as her Healthcare Pro[employer]ys if they are willing to do so. Goals: Aggressive short of no code per last discussion with patient`s sister Nicolle and brother Heath. Family in agreement of patient transferring back to the longterm. CODE STATUS: No Code DNR/DNI SYMPTOMS: * Altered mental status: Hx of schizophrenia. Patient was brought in with chief complaint of altered mental status. It appears patient is back to his baseline. She is following simple commands with the right side. * Dysphagia: Patient recently suffered a stroke with complications of dysphagia. Patient is a PEG tube. Patient was noted to have tube feeds around the pharynx. Possible aspiration. Speech therapy consulted recommended nothing by mouth. * Dyspnea: Possible aspiration. Patient required intubation in the field. Patient medically extubated on 09/07/18. Currently on 1 L O2 nasal cannula. * Debility: Progressive. Recent history of CVA with right-sided hemiparesis and dysphagia. Patient is currently bedbound and dependent for all his ADLs. Unsure how much patient would be able to participate in physical therapy given his current physical limitations. PT, OT recommending rehabilitation at a long term facility. Palliative care will continue to follow the patient during hospital course as condition evolves, to assist patient/decision-maker with understanding of their medical conditions, weighing benefits/burdens of treatment options, for clarification of goals of treatment. Additionally will assist with any symptoms of palliative concern Attestation Attestation: To help prompt me to consider important information that might be impacting today's encounter and assessment, information from prior notes written by myself or my colleagues may have been "brought forward" into today's note. My signature on this note, however, is an attestation that I personally performed the exam, history, and/or decision-making noted today, and, unless otherwise indicated, the interactions with patient, family, and staff as well as the review of records all occurred today. I also attest that the listed assessment and stated plan reflect my best clinical judgment today based on the combination of historical information, prior notes, and today's exam/ interactions. When time spent is documented, it refers only to time spent today by the signer, or if indicated, combined time spent today by collaborating physician/nurse practitioner.
--- NOTE | 2018-09-11 12:27 | P.PNIM ---
Subjective Interval history: Patient laying down in bed. She does not appear to be in any acute distress. Patient is not verbally responding to my questions however does not her head yes and no. Physical Exam Vital signs: Vital Signs 09/10/18 15:16 09/10/18 15:17 09/10/18 16:00 Temperature 98.2 F Pulse Rate 64 65 Respiratory Rate 18 22 Blood Pressure 124/67 Pulse Oximetry 96 96 09/10/18 19:06 09/10/18 20:00 09/10/18 23:56 Temperature 97.6 F Pulse Rate 65 62 66 Respiratory Rate 20 20 16 Blood Pressure 120/68 Pulse Oximetry 96 09/11/18 00:00 09/11/18 04:00 09/11/18 04:45 Temperature 97.8 F 98.3 F Pulse Rate 58 L 64 62 Respiratory Rate 20 20 13 Blood Pressure 124/75 114/54 L Pulse Oximetry 98 95 09/11/18 07:50 09/11/18 08:00 Temperature 97.5 F L Pulse Rate 64 69 Respiratory Rate 16 14 Blood Pressure 124/61 Pulse Oximetry 96 94 L Intake & Output 09/10/18 09/11/18 09/11/18 18:59 06:59 18:59 Intake Total 380 / 380 100 / 100 100 / 100 Output Total 150 / 150 Balance 230 / 230 100 / 100 100 / 100 Weight 68.5 kg Intake: IV 380 / 380 100 / 100 100 / 100 Maxipime Inj 2,000 MG In NS Inj 100 / 100 100 / 100 100 / 100 100 ML @ 200 mls/hr IV.SIG Q12H MINA Rx#:[id number] Glycophos Inj 30 MMOL In NS Inj 280 / 280 250 ML @ 42 mls/hr IV.SIG UNSCH MINA Rx#:[id number] Oral 0 / 0 Output: Urine 150 / 150 Other: # Voids 3 Date of Last Bowel Movement 09/10/18 09/11/18 09/11/18 # Bowel Movements 3 Narrative: General patient does not appear to be in any acute distress. HEENT extraocular movements are intact, clear oropharyngeal mucosa Cardiovascular S1-S2 audible Respiratory clear to auscultation bilaterally Abdomen soft, nontender, nondistended, normal bowel sounds, PEG tube in place Extremities no edema 2+ distal pulses in bilateral upper and lower extremities Neuro patient nods her head yes and no to some of my questions. Left-sided flaccid paralysis, patient has very minimal movement of her right upper right lower extremities. Sensation appears to be intact. Patient does track. Full neurological exam difficult to assess as the patient does not follow all my commands. - Urinary Catheter Management Indwelling Urethral Catheter Cath placed during this visit: yes Reason for continuing: Hourly intake/output Insertion date: 09/04/18 Insertion time: 05:08 Results - Labs CBC & Chem 7: 09/10/18 06:16 09/11/18 04:55 Laboratory Results - last 24 hr 09/11/18 04:55 Creatinine 0.36 L Estimated GFR Greater than 89 Phosphorus 2.5 Assessment and Plan - Assessment (1) Altered mental status Code(s): R41.82 - Altered mental status, unspecified Status: Acute (2) Hyperlipidemia Code(s): E78.5 - Hyperlipidemia, unspecified Status: Acute (3) Hemiplegia affecting left nondominant side Code(s): G81.94 - Hemiplegia, unspecified affecting left nondominant side Status: Acute (4) Hemiparesis affecting nondominant side as late effect of cerebrovascular accident Code(s): I69.359 - Hemiplegia and hemiparesis following cerebral infarction affecting unspecified side Status: Acute (5) Hypothyroidism Code(s): E03.9 - Hypothyroidism, unspecified Status: Acute (6) Bradycardia Code(s): R00.1 - Bradycardia, unspecified Status: Acute - Plan This patient is a 73-year-old female with a 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 She also has a history of hypothyroidism, dyslipidemia, as well as depression and schizophrenia. She has a history of dysphasia and has a PEG tube in place. That resides in a long term facility at [facility]. The patient was found to be lethargic and tachycardic. She was having difficulty breathing. She was brought into the emergency department with an O2 saturation in the mid 80s. She was subsequently intubated and transferred to [facility]. 1. Sepsis secondary to healthcare associated pneumonia and aspiration pneumonia 2. Acute hypoxic restaurant failure secondary to #1 3. Urinary tract infection 4. Acute encephalopathy secondary to #1 and #2 Patient presented with leukocytosis and tachycardic. She was found to be hypoxic. Patient subsequently was intubated. Imaging showed findings consistent with pneumonia. Patient has been on IV antibiotics. Continue antibiotics for today. Patient was successfully extubated and is currently on 1 L of supplemental oxygen. Case discussed with the patient's nurse at bedside and will continue to wean the patient off of supplemental oxygen. Incentive spirometry while awake. Urine culture grew E. coli. Continue antibiotics. Patient does not her head yes and no when asked questions. Patient's mental status seems to be improved. 5. History of CVA Patient with left-sided paralysis. Very minimal movement on the right on my physical examination. Continue aspirin. 6. Hypothyroidism Continue levothyroxine Continue feeds and medication through the PEG tube. Patient tolerating feeds well. PPI for GI prophylaxis Heparin subcu for DVT prophylaxis. (1) Altered mental status Qualifiers: Altered mental status type: unspecified Qualified Code(s): R41.82 - Altered mental status, unspecified (2) Hyperlipidemia Qualifiers: Hyperlipidemia type: unspecified Qualified Code(s): E78.5 - Hyperlipidemia, unspecified (3) Hemiplegia affecting left nondominant side Qualifiers: Hemiplegia type: unspecified type Hemiplegia etiology: late effect of cerebrovascular disease Cerebrovascular disease type: unspecified Qualified Code(s): I69.954 - Hemiplegia and hemiparesis following unspecified cerebrovascular disease affecting left non-dominant side (5) Hypothyroidism Qualifiers: Hypothyroidism type: unspecified Qualified Code(s): E03.9 - Hypothyroidism, unspecified
[2018-09-12] MEDS: Oral Hygiene Kit OROPHARYNG SCH ×3 (05:04→15:10)
[2018-09-12] MEDS: Levothyroxine 50 MCG Tablet PO SCH (05:04)
[2018-09-12] MEDS: Senna/Docusate Sodium 8.6/50 MG Tablet PO SCH (09:16)
[2018-09-12] MEDS: FLUoxetine 20 MG Capsule PO SCH (09:16)
[2018-09-12] MEDS: Heparin - SQ 10,000 UNITS/ML Vial SQ SCH (09:16)
[2018-09-12] MEDS: Chlorhexidine 0.12% Oral Kit 15 ML UDC OROPHARYNG SCH (09:19)
[2018-09-12] MEDS: Miconazole 2% Cream 15 GM Tube TOPICAL SCH (09:20)
[2018-09-12 09:28] VITALS: RESP 18
--- NOTE | 2018-09-12 12:24 | P.DS ---
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 She also has a history of hypothyroidism, dyslipidemia, as well as depression and schizophrenia. She has a history of dysphasia and has a PEG tube in place. That resides in a fdc facility at [facility] The patient was found to be lethargic and tachycardic. She was having difficulty breathing. She was brought into the emergency department with an O2 saturation in the mid 80s. She was subsequently intubated and transferred to [facility]. DS: Diagnosis - Discharge Diagnosis (1) Altered mental status Status: Acute (2) Hyperlipidemia Status: Acute (3) Hemiplegia affecting left nondominant side Status: Acute (4) Hemiparesis affecting nondominant side as late effect of cerebrovascular accident Status: Acute (5) Hypothyroidism Status: Acute (6) Bradycardia Status: Acute DS: Summary Hospital Course: 1. Sepsis secondary to healthcare associated pneumonia 2. Acute hypoxic restaurant failure secondary to #1 3. Urinary tract infection 4. 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 She also has a history of hypothyroidism, dyslipidemia, as well as depression and schizophrenia. She has a history of dysphasia and has a PEG tube in place. That resides in a fdc facility at [facility] The patient was found to be lethargic and tachycardic. She was having difficulty breathing. She was brought into the emergency department with an O2 saturation in the mid 80s. She was subsequently intubated and transferred to [facility]. The patient was found to be afebrile, tachycardic, and had leukocytosis. Imaging findings were consistent with pneumonia. Urinalysis was also positive, urine cultures grew E. coli which is pansensitive. Sputum cultures did not show any specific organism. Blood cultures were negative. Leukocytosis resolved. She has received 8 days of IV antibiotics. She will be discharged on 2 more days of p.o. Levaquin. She was extubated successfully and then has been titrated off supplemental oxygen. She can continue with PEG tube feeds at the fdc facility. PEG tube was replaced during this admission. Continue PT/OT. The patient's acute encephalopathy has resolved. She is back to her baseline and nods yes and no to questions. She appears to be responding appropriately. 5. History of CVA Patient has left-sided paralysis. Continue aspirin, statin. 6. Hyperthyroidism Continue levothyroxine Patient will be transferred back to fdc facility today. - Time Spent with Patient Total time spent providing and/or coordinating discharge services: Greater than 30 minutes - Quality: VTE Deep Vein Thrombosis/Pulmonary Embolism Present on Admission: No Exam Vital signs: Vital Signs 09/11/18 15:00 09/11/18 16:00 09/11/18 20:00 Temperature 98.3 F 98.3 F Pulse Rate 68 68 62 Respiratory Rate 14 14 16 Blood Pressure 113/58 L 110/58 L Pulse Oximetry 95 95 09/11/18 23:28 09/12/18 00:00 09/12/18 04:00 Temperature 98.6 F 98.5 F Pulse Rate 61 68 65 Respiratory Rate 15 16 17 Blood Pressure 118/56 L 126/61 Pulse Oximetry 92 L 97 09/12/18 05:01 09/12/18 08:00 Temperature 97.7 F Pulse Rate 69 78 Respiratory Rate 16 18 Blood Pressure 135/59 L Pulse Oximetry 95 Intake & Output 09/11/18 09/12/18 09/12/18 18:59 06:59 18:59 Intake Total 100 / 100 100 / 100 100 / 100 Output Total 550 / 550 400 / 400 Balance -450 / -450 -300 / -300 100 / 100 Weight 68.9 kg Intake: IV 100 / 100 100 / 100 100 / 100 Maxipime Inj 2,000 MG In NS Inj 100 / 100 100 / 100 100 / 100 100 ML @ 200 mls/hr IV.SIG Q12H MINA Rx#:[id number] Oral 0 / 0 Output: Urine 550 / 550 400 / 400 Other: Date of Last Bowel Movement 09/11/18 09/11/18 09/11/18 # Bowel Movements 0 # Incontinent Bowel Movements 1 Narrative: General patient does not appear to be in any acute distress. HEENT extraocular movements are intact, clear oropharyngeal mucosa Cardiovascular S1-S2 audible Respiratory clear to auscultation bilaterally Abdomen soft, nontender, nondistended, normal bowel sounds, PEG tube in place Extremities no edema 2+ distal pulses in bilateral upper and lower extremities Neuro patient nods her head yes and no to some of my questions. Left-sided flaccid paralysis, patient has very minimal movement of her right upper right lower extremities. Sensation appears to be intact. Patient does track. Full neurological exam difficult to assess as the patient does not follow all my commands. Results Procedures completed during hospitalization: Intubation. PEG tube replacement. - Impressions ITS Impressions Head CT 09/04/18 05:26 CONCLUSION: 1. No acute intracranial abnormality. 2. Atrophy and chronic small vessel ischemic change. . Abdomen X-Ray 09/05/18 13:56 CONCLUSION: The injected PEG tube has contrast pooling around the balloon resulting in poor evaluation of location. However, given its location in the right upper quadrant this may be within the antral or pylorus region of the stomach. The contrast within the colon is of uncertain etiology. Given the appearance suggest dedicated fluoroscopy evaluation to confirm position. Chest X-Ray 09/10/18 06:00 CONCLUSION: No change in bilateral lower lung zone predominant pulmonary opacity. Persistent elevation right hemidiaphragm. Discharge Plan - Discharge Disposition Patient Disposition: Discharge to SNF - Discharge Condition Condition: Stable - Discharge Order Discharge Orders: Discharge Order (Routine); Ordered 09/12/18 Ordered By: Kavita Chapa ED Use Only Admit Order (Routine); Ordered 09/04/18 Ordered By: Vamshi Rincon - Physicians Team Primary Care Provider: Charly Milan Attending Provider: Kavita Chapa Other Providers: [employer]urance ; [facility] ; Vishal Foley MD ; Bahman Velasco MD
--- NOTE | 2018-09-12 12:52 | PQ ---
Physician Query Response Document PATIENT: Jenn Okeefe : 1945 ADMIT DATE: 09/04/2018 5:27 AM DISCH DATE: RESPONDING PROVIDER #: MMINOUEI QUERY TEXT: CDS Clarification Sepsis due to E. coli UTI, POA, in the setting of E. coli UTI urosepsis requiring treatment with Leva ramu IV and Piperacillin/tazobactam IV. Other explanation of clinical findings. Unable to determine (no explanation for clinical findings). The patient's Clinical Indicators include: The medical record reflects the following clinical findings, treatment, and risk factors. * Clinical Indicators: T 101.1, P 114, WBC 17.7, Urine culture + E. coli * Risk Factors: E. coli UTI urosepsis * Treatment: Levaquin IV and Piperacillin/tazobactam IV Please clarify and document your clinical opinion in the progress notes and discharge summary includi ng the definitive and/or presumptive diagnosis (suspected or probable), related to the above clinical findings. Please include clinical findings supporting your diagnosis. Patient Unit: [facility] Room: [facility] Thank you, Magdalene Patel RN CDIS Contact Number: [phone]. [phone] Query created by: Magdalene Patel on 09/10/2018 10:30 AM RESPONSE TEXT: Sepsis due to E-Coli UTI. Electronically signed by: Genet Kaur MD 09/12/2018 12:48 PM
--- NOTE | 2018-09-12 13:36 | P.PNPAL ---
Reason for Visit Reason for visit: a. To assist with evaluation and management of symptoms including:Dysphagia, altered mental status, Debility b. To assist medical decision maker(s) with: better understanding of current medical conditions; weighing benefits/burdens of medical treatment options; making medical treatment decisions. Subjective Subjective/Interval History: Follow-up medically necessary for symptom management. Patient seen earlier on around 1200 hrs. Patient seen and examined in the room. Patient is sleeping but easily arousable. Patient not verbalizing. Appears to be nodding head appropriately. It is difficult to assess how much patient is comprehending due to aphasia. Patient does not appear to be in any discomfort or distress. Per nursing staff patient sometimes will say one word with a slurry voice. Case management is assisting with discharge planning. Per last caseworker intake note patient will return [facility]. Family/Friend Interactions: No family at bedside. . Advance Directives Living Will: Never completed Health Care Surrogate: Never completed Durable Power of Motion Picture Projectionist: Copy in medical record Health Care Surrogate Name and Number: HCP: Heath Rayo and Nicolle Toledo Objective Vital Signs: Vital Signs 09/11/18 15:00 09/11/18 16:00 09/11/18 20:00 Temperature 98.3 F 98.3 F Pulse Rate 68 68 62 Respiratory Rate 14 14 16 Blood Pressure 113/58 L 110/58 L Pulse Oximetry 95 95 09/11/18 23:28 09/12/18 00:00 09/12/18 04:00 Temperature 98.6 F 98.5 F Pulse Rate 61 68 65 Respiratory Rate 15 16 17 Blood Pressure 118/56 L 126/61 Pulse Oximetry 92 L 97 09/12/18 05:01 09/12/18 08:00 09/12/18 12:00 Temperature 97.7 F Pulse Rate 69 78 73 Respiratory Rate 16 18 Blood Pressure 135/59 L Pulse Oximetry 95 Intake & Output 09/11/18 09/12/18 09/12/18 18:59 06:59 18:59 Intake Total 100 / 100 100 / 100 100 / 100 Output Total 550 / 550 400 / 400 Balance -450 / -450 -300 / -300 100 / 100 Weight 68.9 kg Intake: IV 100 / 100 100 / 100 100 / 100 Maxipime Inj 2,000 MG In NS Inj 100 / 100 100 / 100 100 / 100 100 ML @ 200 mls/hr IV.SIG Q12H [facility] Rx#:[id number] Oral 0 / 0 Output: Urine 550 / 550 400 / 400 Other: Date of Last Bowel Movement 09/11/18 09/11/18 09/11/18 # Bowel Movements 0 # Incontinent Bowel Movements 1 Physical Exam: CONSTITUTIONAL/GENERAL: This is an elderly chronically ill looking patient in no apparent distress. TUBES/LINES/DRAINS: PEG tube, PIV, nasal cannula, Female external catheter. SKIN: No jaundice, rashes, or lesions. Ecchymoses on upper extremities. No wounds seen anteriorly. Normothermic. HEAD: Atraumatic. Normocephalic. EYES: Pupils round and reactive to light. No scleral icterus. No injection or drainage. Fundi not examined. ENT: Hearing grossly normal. Nose without bleeding or purulent drainage. Moist oral mucosa. NECK: Trachea midline. Supple, nontender. CARDIOVASCULAR: S1, S2 normal. No JVD. Peripheral pulses symmetric. RESPIRATORY/CHEST: Symmetric, unlabored respirations. Diminished breath sounds. No rhonchi. GASTROINTESTINAL: Abdomen soft, non-tender, nondistended. No guarding. Bowel sounds present. GENITOURINARY: Without palpable bladder distension. Female external catheter MUSCULOSKELETAL: Extremities without clubbing, cyanosis. No joint tenderness or effusion noted. No calf tenderness. No mottling or clubbing. LYMPHATICS: Did not assess NEUROLOGICAL: Awake, following commands with right side, flaccid to left side. Not verbalizing PSYCHIATRIC: Unable to assess. Currently calm. Diagnostic Tests Laboratory: Laboratory Results - last 72 hr 09/10/18 09/10/18 09/11/18 06:16 06:16 04:55 WBC 7.5 RBC 4.07 Hgb 12.7 Hct 36.9 MCV 90.7 MCH 31.2 MCHC 34.5 RDW 13.7 Plt Count 137 L MPV 10.1 Neut % (Auto) 73.1 H Lymph % (Auto) 15.1 York % (Auto) 11.1 H Eos % (Auto) 0.1 Baso % (Auto) 0.6 Neut # (Auto) 5.5 Lymph # (Auto) 1.1 York # (Auto) 0.8 Eos # (Auto) 0.0 Baso # (Auto) 0.0 WBC Differential . Differential Comment Auto diff final Sodium 135 L Potassium 3.7 Chloride 102 Carbon Dioxide 26.7 Anion Gap 6 BUN 11 Creatinine 0.42 L 0.36 L Estimated GFR Greater than 89 Greater than 89 Random Glucose 147 H Calcium 7.8 L Phosphorus 1.9 L 2.5 Magnesium 1.9 Total Bilirubin 0.3 AST 31 ALT 25 Alkaline Phosphatase 53 Total Protein 5.7 L Albumin 2.1 L Result Diagrams: 09/10/18 06:16 09/11/18 04:55 Microbiology: Microbiology 09/04/18 04:00 Aerobic Blood Culture - Final Blood - Peripheral No growth in 5 days Anaerobic Blood Culture - Final No growth in 5 days 09/04/18 03:55 Aerobic Blood Culture - Final Blood - Peripheral No growth in 5 days Anaerobic Blood Culture - Final No growth in 5 days Imaging: Head CT 09/04/18 05:26 CONCLUSION: 1. No acute intracranial abnormality. 2. Atrophy and chronic small vessel ischemic change. . Abdomen X-Ray 09/05/18 13:56 CONCLUSION: The injected PEG tube has contrast pooling around the balloon resulting in poor evaluation of location. However, given its location in the right upper quadrant this may be within the antral or pylorus region of the stomach. The contrast within the colon is of uncertain etiology. Given the appearance suggest dedicated fluoroscopy evaluation to confirm position. Chest X-Ray 09/10/18 06:00 CONCLUSION: No change in bilateral lower lung zone predominant pulmonary opacity. Persistent elevation right hemidiaphragm. Procedures: 09/04/18-endotracheally intubated by EMS en route to the hospital 09/06/18-PEG tube inserted 09/07/18-medically extubated Assessment and Plan - Disease Oriented Problem List (1) Metabolic encephalopathy (2) Hyperlipidemia (3) Hypothyroidism (4) Hemiplegia affecting left nondominant side (5) Hemiparesis affecting nondominant side as late effect of cerebrovascular accident (6) Urinary tract infection - Symptom Scale (1) Dysphagia Comment: Recent stroke with residual left sided hemiplegia and dysphagia. Pt had PEG tube placed approximately 2 week ago after stroke. (2) Dyspnea 0-10 Scale: Unable to quantify Comment: Probable aspiration. EMS noted tube feeding in pharynx. (3) Altered mental status 0-10 Scale: Unable to quantify (4) Debility 0-10 Scale: Unable to quantify Comment: Progressive. Recent stroke with left sided hemiplegia, and dysphagia. Pertinent Non-Medical Issues: Psychosocial: Patient is originally from [facility]. 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 Patient is . She only had one son who 3 months ago from esophageal cancer. Patient has 2 siblings a sister and a brother. Patient has 3 grandchildren. Spiritual: Patient is a Vood[employer]. 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 Her son Derrell Okeefe was her DPOA and her daughter in law is her alternate DPOA Ethical issues impacting care: None identified at this time Important Contacts: HCP -Brother- Nathan "Heath" Obxmi-[phone] HCP- Sister Nicolle Toledo [phone] [place]-ae-ein- Jade Rayo [phone] Erika OkeefeDjcsnz-scidsfnc-qr-law [phone] cellphone/[phone] Prognosis: Mrs. Okeefe is a 73-year-old female with a past medical history of cerebral infarction, chronic dysphagia post intracerebral hemorrhage, PEG tube, encephalopathy, left-sided hemiparesis, hemiplegia to nondominant left side, hyperlipidemia, hypothyroidism, major depressive disorder, schizophrenia and TIA. Patient was brought by EMS to the emergency room on 09/04/18 from a [facility] facility for evaluation of lethargy, tachycardia with dyspnea. Patient was intubated in route to [facility] ER. Clinical course complicated with persistent leukocytosis, dyspnea and urinary tract infection. Given multiple ongoing comorbidities and recent CVA with left-sided hemiparesis and dysphagia, patient remains at high risk for further complications, deterioration and decline. . Code Status: No Code DNR Plan: PLAN: Legal decision maker: Patient is currently intubated on mechanical ventilation. She is currently not able to participate in medical decision making. It is not known whether she will be able to regain this capacity. Patient is . Her only son is . Her parents are . According to [place] statute, her brother Nathan Rayo and sister Nicolle Toledo would serve as her Healthcare [employer] if they are willing to do so. Goals: Aggressive short of no code per last discussion with patient`s sister Nicolle and brother Heath. Family in agreement of patient [facility] CODE STATUS: No Code DNR/DNI SYMPTOMS: * Altered mental status: Hx of schizophrenia. Patient was brought in with chief complaint of altered mental status. It appears patient is back to his baseline. She is following simple commands with the right side. * Dysphagia: Patient recently suffered a stroke with complications of dysphagia. Patient is a PEG tube. Patient was noted to have tube feeds around the pharynx. Possible aspiration. Speech therapy consulted recommended nothing by mouth. * Dyspnea: Possible aspiration. Patient required intubation in the field. Patient medically extubated on 09/07/18. Currently on 1 L O2 nasal cannula. * Debility: Progressive. Recent history of CVA with right-sided hemiparesis and dysphagia. Patient is currently bedbound and dependent for all his ADLs. Unsure how much patient would be able to participate in physical therapy given his current physical limitations. PT, OT recommending rehabilitation at a correction facility. Palliative care will continue to follow the patient during hospital course as condition evolves, to assist patient/decision-maker with understanding of their medical conditions, weighing benefits/burdens of treatment options, for clarification of goals of treatment. Additionally will assist with any symptoms of palliative concern Attestation Attestation: To help prompt me to consider important information that might be impacting today's encounter and assessment, information from prior notes written by myself or my colleagues may have been "brought forward" into today's note. My signature on this note, however, is an attestation that I personally performed the exam, history, and/or decision-making noted today, and, unless otherwise indicated, the interactions with patient, family, and staff as well as the review of records all occurred today. I also attest that the listed assessment and stated plan reflect my best clinical judgment today based on the combination of historical information, prior notes, and today's exam/ interactions. When time spent is documented, it refers only to time spent today by the signer, or if indicated, combined time spent today by collaborating physician/nurse practitioner.
[2018-09-12 18:34] VITALS: BP 137/65; PULSE 65; TEMP 98.6; O2SAT 93
== END 2018-09-12 18:45 ==
LOC: NEPE 03:48 → NEDA 05:27 → HIMC 06:39 → N04 09-10 13:22
PROVIDERS: ADMIT Hospitalist; ATTEND Hospitalist
PROC: PANENDO (2018-09-06 16:15)